=== PATIENT | female | born 1965 | race Caucasian/White ===

== ENCOUNTER → 2021-06-29 08:30 | Outpatient (BNVA) | payer SELFPAY | PROVIDERS: PCP Internal Medicine; Visit Provider Internal Medicine | DX: Z02.79 Encounter for issue of other medical certificate (principal) ==

== ENCOUNTER 2025-01-01 09:46 | Outpatient (AMB) | payer OTHER, SELFPAY ==
[2025-01-01 09:58] VITALS: BP 122/72; PULSE 69; RESP 18; TEMP 36.7; O2SAT 99; BMI 27.4
--- NOTE | 2025-01-01 09:58 | A.OFFPC_ITS ---
Vital Signs 01/01/25 09:58 Height 5 ft 2.25 in Weight 151 lb BMI 27.4 BP 122/72 Blood Pressure Location Lt brachial Position Sitting Respiration 18 Pulse 69 Pulse Source Pulse Oximeter Temp 98.0 F Temp Source Oral Pulse Oximetry (%) 99 Oxygen Delivery Method Room Air Intake Visit Reasons: establish care Intake Note: Patient is a new patient here to establish care. Transferring care from [facility] in [place], [place]. Medical records have been requested and have not been received. Edge Runner Required: No Accompanied by: Self / Same As Patient Allergies No Known Allergies Allergy (Verified 01/01/25 10:20) Medication List - Last Reconciled 01/01/25 by FRANCISCO Wiley atorvastatin 40 mg PO DAILY citalopram 10 mg PO DAILY levothyroxine 75 mcg PO DAILY thiamine HCl (vitamin B1) 100 mg PO DAILY Tobacco use date assessed: 01/01/25 Dental Screening Dental Screen Date: 01/01/25 Did you have a dental visit in the last 12 months?: Yes Did you have a dental problem in the last 6 months where you did not have access to dental care?: No Was dental information given to patient?: Patient has dentist HPI establish care HPI Details Previous PCP: [facility] in [place] Last visit: March 2024 Last PE:same Specialist:no OBGYN: will need a referral-was at [facility]-but not sure if they are in practice anymore Past medical history: depression, anxiety, left hip cortisone shots x2-none in two years, meniscus right tear( PRP injection x1), hypothyroidism Medications: Family HX: father cva, and paternal grandparents cva, sister on dad side cva Problem: Reports that left hip occasionally bothers her. She is struggling with her hip- never had an xray, will order one to further evaluate Reports thinning of hair and would like to see a basketballs and footballs reverser for this. The patient had a MRI of the breast about a month ago hx of benign breast lump and strong family hx of breast cancer Patient reports hearing loss and ringing in the right ear that was evaluated by ENT without notable findings. [facility] Medical History (Updated 01/07/25 @ 21:03 by FRANCISCO Wiley) Hypothyroidism Tear of meniscus of right knee Anxiety Depression CVA (cerebral vascular accident) Surgical History Hx of breast biopsy History of endometrial ablation Family History (Updated 01/07/25 @ 21:10 by FRANCISCO Wiley) Father Breast cancer Diabetes Stroke Mother Glaucoma Dementia Atrial fibrillation Son No problems noted. Daughter No problems noted. 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 1. Little interest or pleasure in doing things: not at all 2. Feeling down, depressed, or hopeless: not at all 3. Trouble falling or staying asleep, or sleeping too much: several days 4. Feeling tired or having little energy: several days 5. Poor appetite or overeating: several days 6. Feeling bad about yourself - or that you are a failure or have let yourself or your family down: not at all 7. Trouble concentrating on things, such as reading the newspaper or watching television: not at all 8. Moving or speaking so slowly that other people could have noticed. Or the opposite - being so fidgety or restless that you have been moving around a lot more than usual: not at all 9. Thoughts that you would be better off or of hurting yourself in some way: not at all Total score: 3 Depression Screening Interpretation: Negative Depression Screening Done: Yes 68493 - PHQ-9 Billing: Yes Source: Developed by Drs. Cosme Engle, Lianne Burciaga, Roland Scott and colleagues, with an educational moo from [employer]. Thrive Questionnaire Date Thrive assessed: 01/01/25 I am a: Patient What is your living situation today?: I have a steady place to live Within the past 12 months, did the food you bought not last and you didn't have the money to get more?: Never true Within the past 12 months, did you worry whether your food would run out before you got money to buy more?: Never true Do you have trouble paying for medicines?: No Do you have trouble getting transportation to medical appointments?: No Do you have trouble paying your heating and electricity bill?: No Do you have trouble taking care of your child, family member or friend?: No Do you have trouble with day-to-day activities such as bathing, preparing meals, shopping, managing finances, etc.?: No Are you currently unemployed and looking for a job?: No Are you interested in more education?: No Please select the resources that you would like help with: None Currently or been in a relationship where the following occur: No concerns reported THRIVE Score: 0 AUDIT C Alcohol Use Questionnaire (AUDIT-C) 1. How often do you have a drink containing alcohol?: 2-4 times a month 2. How many drinks containing alcohol do you have on a typical day when you are drinking?: 1 or 2 3. How often do you have six or more drinks on one occasion?: Never Total Score: 2 Score Reviewed/Action Taken: Yes FRIDA-7 AMB Questionnaire FRIDA-7 Date FRIDA - 7 assessed: 01/01/25 Feeling nervous, anxious, or on edge: 1 = Several days Not being able to stop or control worryin = Several days Worrying too much about different things: 1 = Several days Trouble relaxin = Several days Being so restless that it is hard to sit still: 0 = Not at all Becoming easily annoyed or irritable: 1 = Several days Feeling afraid as if something awful might happen: 0 = Not at all Total FRIDA-7 score (0-4 normal; 5-9 mild; 10-14 moderate; 15-21 severe): 5 Source: Developed by Drs. Cosme Engle, Lianne Burciaga, Roland Scott and colleagues, with an educational moo from [employer] FRIDA-7 Assessment Billing FRIDA-7 Assessment Tool: FRIDA-7 Assessment 69361 Review of Systems Const Denies headache(s) Eyes Denies loss of vision ENT Denies vertigo, Denies dizziness, Denies headache(s) and Denies sore throat Card Denies chest pain, Denies leg edema and Denies lightheadedness Resp Denies cough, Denies hemoptysis and Denies wheezing GI Denies abdominal pain, Denies melena, Denies constipation, Denies diarrhea and Denies vomiting Denies urinary frequency, Denies dysuria and Denies urinary urgency Musc Reports arthralgias (Right hip and right knee), Denies joint swelling, Denies numbness and Denies tingling Neuro Denies Abnormal speech present, Denies behavioral changes, Denies vertigo, Denies dizziness, Denies headache(s), Denies loss of vision, Denies memory loss, Denies numbness and Denies tingling Psych Reports anxiety, Denies behavioral changes, Reports depression, Denies memory loss and Denies panic attacks Spike/Lymph Denies easy bleeding and Denies easy bruising Aller/Immun Denies wheezing Physical exam (Primary Care) Vital Signs: Last Vital Signs Temp 98.0 F 01/01/25 09:58 Pulse 69 01/01/25 09:58 Resp 18 01/01/25 09:58 BP 122/72 01/01/25 09:58 Pulse Ox 99 01/01/25 09:58 Oxygen Delivery Method Room Air 01/01/25 09:58 BMI result Body Mass Index 27.4 Tobacco/Smoking Status: Tobacco use Status Tobacco use date assessed 01/01/25 01/01/25 10:16 Patient Tobacco Use Status Former Tobacco user 01/01/25 10:16 Tobacco use type Cigarette 01/01/25 10:16 e-Cigarette/Vaping Use Never Used 01/01/25 10:16 PHQ-9: PHQ-9 Score PHQ-9: Total score 3 01/01/25 10:45 Depression Screening Interpretation: Negative Thrive Assessment: Date of Thrive Assessment Date Thrive assessed 01/01/25 01/01/25 10:16 Currently or been in a relationship where the following occur: No concerns reported Const General: healthy appearing, no acute distress, alert and awake Nutritional Appearance: well nourished Orientation/consciousness: oriented to person, oriented to place and oriented to time HENMT Ears: TM's normal bilaterally General nose exam: Normal nasal mucous membranes and turbinates present Eyes Conjunctivae: conjunctivae normal Sclerae: sclerae normal Pupils: Equal, round and reactive pupils present Neck Neck: Yes no lymphadenopathy and Yes no JVD Thyroid: Thyroid normal Carotids: no bruits Resp Effort & Inspection: normal respiratory effort and not tachypneic Auscultation: no crackles, no rales, no rhonchi and no wheezes Cardio Rate: regular rate Rhythm: regular rhythm Heart sounds: no murmurs and normal S1 and S2 Bruits: no carotid bruits GI Palpation (GI): Soft to palpation, nontender, no hepatomegaly and no splenomegaly Auscultation: normal bowel sounds Skin General skin exam: no rashes or lesions noted and dry skin Neuro General: oriented to person, oriented to place and oriented to time Cranial nerves: Yes Equal, round and reactive pupils present Speech: No Abnormal speech present Gait exam (Neuro): Normal gait present Motor exam (neuro): no tremor noted Extrem Right upper extremity: full ROM Left upper extremity: full ROM Right lower extremity: full ROM; no edema Left lower extremity: full ROM; no edema Psych Mental Status: mental status grossly normal Speech and movement: Normal speech and movement present Affect: normal affect Attitude: cooperative Thought process: Normal thought process present Coding Level of Care Code New Pt Level 4 (20224) Diagnoses Depression, unspecified depression type F32.A Depression Type: unspecified Anxiety F41.9 Left hip pain M25.552 Old tear of meniscus of right knee, unspecified meniscus, unspecified tear type M23.206 Tear current or old: old Meniscus of knee: unspecified Meniscus tear of knee type: unspecified type Hypothyroidism, unspecified type E03.9 Hypothyroidism type: unspecified Hair thinning L65.9 Additional Codes FRIDA-7 Assessment Billing - FRIDA-7 Assessment Tool: FRIDA-7 Assessment 74416 ([id number]) PHQ-9 - 29886 - PHQ-9 Billing: Yes ([id number]) Time Spent (min) 39 Assessment & Plan Assessment & Plan (1) Depression: Code(s): F32.A - Depression, unspecified Category: Medical Qualifiers: Depression Type: unspecified Qualified Code(s): F32.A - Depression, unspecified Plan: ENCOURAGED CBT Continue citalopram 10 mg daily (2) Anxiety: Code(s): F41.9 - Anxiety disorder, unspecified Category: Medical Plan: Encouraged CBT Continue citalopram 10 mg daily (3) Left hip pain: Code(s): M25.552 - Pain in left hip Category: Medical Plan: Ongoing left hip pain that she has been struggling with, we will order an x-ray to further evaluate (4) Tear of meniscus of right knee: Code(s): S83.206A - Unspecified tear of unspecified meniscus, current injury, right knee, initial encounter Category: Medical Qualifiers: Tear current or old: old Meniscus of knee: unspecified Meniscus tear of knee type: unspecified type Qualified Code(s): M23.206 - Derangement of unspecified meniscus due to old tear or injury, right knee Plan: left hip cortisone shots x2-none in two years, meniscus right tear( PRP injection x1), Ibuprofen otc as needed (5) Hypothyroidism: Code(s): E03.9 - Hypothyroidism, unspecified Category: Medical Qualifiers: Hypothyroidism type: unspecified Qualified Code(s): E03.9 - Hypothyroidism, unspecified Plan: The patient is currently on levothyroxine 75 mcg daily We will recheck labs (6) Hair thinning: Code(s): L65.9 - Nonscarring hair loss, unspecified Category: Medical Plan: Dermatology referral placed Orders: Orders XR hip LT min 2V 01/01/25 M25.552 - Pain in left hip Complete Blood Count Auto Diff 01/01/25 Z00.00 - Encounter for general adult medical examination without abnormal findings Lipid Panel 01/01/25 Z00.00 - Encounter for general adult medical examination without abnormal findings Comprehensive [place]. Panel Fast 01/01/25 Z00.00 - Encounter for general adult medical examination without abnormal findings Free T4 (Free Thyroxine) 01/01/25 Z00.00 - Encounter for general adult medical examination without abnormal findings Glucose Fasting 01/01/25 Z00.00 - Encounter for general adult medical examination without abnormal findings Vitamin D 25-OH Total 01/01/25 Z00.00 - Encounter for general adult medical examination without abnormal findings UA CC w/rflx Micro + Cult 01/01/25 Z00.00 - Encounter for general adult medical examination without abnormal findings TSH reflex Free T4 01/01/25 Z00.00 - Encounter for general adult medical examination without abnormal findings Referrals Dermatology Referral L65.9 - Nonscarring hair loss, unspecified BUSINESS ANALYSIS PROFESSIONAL Referral Z01.419 - Encounter for gynecological examination (general) (routine) without abnormal findings
--- OUTSIDE RECORDS SUMMARY | 2025-01-01 10:47 | XMS_ITS | Clinical Summary ---
Author Organization [address] Address [address] [place] [id number] Phone Care Team Providers Care Wincher Name Role Phone Concepcion Fall MD Primary Care Provider [phone] Allergies No known active allergies Medications levothyroxine (SYNTHROID, LEVOTHROID) 50 mcg tablet Take 1 tablet (50 mcg total) by mouth 1 (one) time each day. 06/18/2019 Active sertraline (ZOLOFT) 50 mg tablet Take 1 tablet (50 mg total) by mouth 1 (one) time each day. 08/18/2021 Active MULTIVITAMIN ORAL 1 po QD Active Active Problems Problem Noted Date Diagnosed Date Other specified health status 09/13/2024 Overview (09/13/2024): h/p panic attacks- none in 7 yrs Abnormal uterine bleeding 10/17/2018 Overview (09/13/2024): Last Assessment & Plan: Reviewed with patient that I would recommend EMB as it has been several years since her last. She agreed. The patient was consented for an endometrial biopsy. She was placed in the lithotomy position and a bimanual exam was performed revealing an enlarged ~ 14-16 week anteverted uterus. A sterile speculum was placed. The cervix was cleansed with betadine. A single-toothed tenaculum was placed on the anterior lip of the cervix. The uterus sounded to 7 cm in length. One pass with a 3 mm pipelle was performed with a scant amount of tissue returning. This tissue was sent to pathology for further evaluation. The tenaculum was removed and the sites appeared hemostatic. The speculum was also removed. The patient tolerated the procedure well. We discussed postprocedure cramping and light bleeding. Advised to avoid anything in the vagina for three days. Advised to call with increasing pain, heavy bleeding, or fever. Uterine leiomyoma 10/17/2018 Overview (09/13/2024): Last Assessment & Plan: I reviewed options for treatment. I explained that if the pressure and intermittent bleeding are not bothersome, no need for intervention as most fibroids are benign. I explained that they will shrink over time with menopause, but slowly. If bothersome enough, I recommended she consider hysterectomy, which would need to be performed as an open procedure, but likely could be accomplished through a Pfannenstiel incision. I reviewed expected hospital stay, recovery, time out of work and general risks of surgery. She will consider this and inform me of her decision when she is ready. Adjustment disorder with anxiety 07/08/2016 Adjustment disorder with depressed mood 06/27/20 16 Intramural leiomyoma of uterus 07/13/2015 Hypothyroidism 09/13/2010 Sun-damaged skin 09/13/2010 Overview (09/13/2024): stypia on biopsy, follows with dermatology, 09/02/10 Encounters Date Type Department Care Team Description 11/19/2024 12:42 PM EST - 11/19/2024 11:59 PM EST Hospital Encounter [facility] MRI [address] [place] [address] Family history of malignant neoplasm of breast Discharge Disposition: Home or Self Care from Last 3 Months Immunizations Name Administration Dates Next Due Influenza Quadravalent, MDCK , 0.5ml, preservative free (Flucelvax) 6mo and older 06/18/2020 Influenza trivalent, with pr eservative (Fluzone; Afluria) 6mo and older 06/10/2016,06/11/2013,06/06/2012,06/28,06/15/2010,06/19/2009,07/04/2008 ,06/28/2007,08/26/2006 Influenza, Unspecified 05/24/2017,06/16/2015 Pneumococcal polysaccharide 23 valent (Pneumovax 23) 2yo and older 03/23/2010 Td, Unspecified 12/18/2003 Tdap Tetanus diptheria acell ular pertussis (Boostrix; Adacel) 7yo and older 06/28/2011 Surgical History Surgery Date Site/Laterality Comments STEREOTACTIC BREAST BIOPSY 2010 PROCEDURE: STEREOTACTIC BREAST BIOPSY; COMMENT: benign BREAST BIOPSY Left PROCEDURE: BX BREAST; PERC NEEDLE CORE W/IMAG GUID ENDOMETRIAL ABLATION 01/08/16 PROCEDURE: RI ENDOMETRIAL ABLTJ THERMAL W/O HYSTEROSCOPIC GUID; COMMENT: Novasure COLONOSCOPY 08/16/2016 PROCEDURE: HISTORICAL COLONOSCOPY; COMMENT: Minimal diverticulosis, no polyps. Medical History Medical History Date Comments Anxiety state, unspecified 03/30/2006 DX:An xiety state, unspecified Sun-damaged skin 09/13/2010 DX:Sun-damaged skin Hypothyroidism 09/13/2010 DX:Hypothyroidis m Family History Medical History Relation Name Comments Melanoma Aunt paternal Other: dm Brother diagnosed at age 61 Breast cancer Father age 55 Diabetes Father age 55 Stroke Father age 55 Stroke Paternal Grandfather Stroke Paternal Grandmother Breast cancer Sister 65 Other Dermatological Disorders Sister 65 Facial.... specifics unknown with non-melanotic cutaneous malignancy suspected because of the patient's description of small surgical scar Colon cancer Neg Hx Ovarian cancer Neg Hx Relation Name Status Comments Aunt Brother diagnosed at age 61 Alive Father age 55 (Age 58) Paternal Grandfather Paternal Grandmother Sister 65 Social History Tobacco Use Types Packs/Day Years Used Date Smoking Tobacco: Former Cigarettes 0.3 10 1 11/10/1982 - 09/25/1993 Smokeless Tobacco: Never Alcohol Use Standard Drinks/Week Comments Yes 0 (1 standard drink = 0.6 oz pur e alcohol) Comments Unknown Sex and Gender Information Value Date Recorded Sex Assigned at Not on file Legal Sex Female 3:40 PM EST Gender Identity Not on file Sexual Orientation Not on file Obstetrics History Para Term AB IAB SAB Ectopic Multiple Livin g Live Births 2 2 2 2 Date Outcome GA Total Labor Labor/2nd/3rd Weight Sex Type Anes PTL Delfina A1 A5 Name Clin Term Term Last Filed Vital Signs Vital Sign Reading Time Taken Comments Blood Pressure - - Pulse - - Temperature - - Respiratory Rate - - Oxygen Saturation - - Inhaled Oxygen Concentration - - Weight 68 kg (150 lb) 11/19/2024 1:13 PM EST Height - - Body Mass Index - - Plan of Treatment Health Maintenance Due Date Last Done Comments Hepatitis B Vaccines (1 of 3 - 19+ 3-dose series) 1984 Depression Screening 09/03/2022 HIV Screening 09/03/2022 Social Influencers of Health Screening 09/03/2022 Zoster Vaccines (2 of 2) 09/15/2024 07/21/2024 Cholesterol Screening (Lipid Panel) 06/11/2025 06/11/2020 Cervical Cancer Screening: HPV 06/09/2026 06/09/2021 Colorectal Cancer Screening: Colonoscopy 08/16/2026 08/16/2016, 08/16/2016 Breast Cancer Screening 09/30/2026 09/30/19, 09/22/2023, 09/15/2022, Additional history exists DTaP,Tdap,and Td Vaccines (4 - Td or Tdap) 07/05/2031 07/05/2021, 06/28/2011, 12/18/2003 RSV Immunization Adult Patients (1 - 1-dose 75+ series) 2040 Hepatitis C Screening Completed 09/20/2013 Influenza Vaccine Completed 06/05/2024, , 06/21/2022, Additional history exists COVID-19 Vaccine Completed 07/07/2024, , 04/06/2022, Additional history exists Pneumococcal Vaccine: 50+ Years Completed 07/21/2024, 03/23/2010 Pneumococcal Vaccine: Pediatrics (0 to 5 Years) and At-Risk Patients (6 to 64 Years) Aged Out 07/21/2024, 03/23/2010 No longer eligibl e based on patient's age to complete this topic HIB Vaccines Aged Out No longer eligi ble based on patient's age to complete this topic HPV Vaccines Aged Out No longer eligi ble based on patient's age to complete this topic Hepatitis A Vaccines Aged Out No long er eligible based on patient's age to complete this topic IPV Vaccines Aged Out No longer eligi ble based on patient's age to complete this topic MMR Vaccines Aged Out No longer eligi ble based on patient's age to complete this topic Meningococcal ACWY Vaccine Aged Out N o longer eligible based on patient's age to complete this topic Meningococcal B Vaccine Aged Out No l onger eligible based on patient's age to complete this topic RSV Immunization Patients Under 20 months Aged Out No longer eligible based on patient's age to complete this topic Varicella Vaccines Aged Out No longer eligible based on patient's age to complete this topic Procedures Procedure Name Priority Date/Time Associated Diagnosis Comments MR BREAST WO AND W CONTRAST BILAT Routine 11/19/2024 2:57 PM EST Family history of malignant neoplasm of breast MG MAMMO DIGITAL SCREENING W NENO BILAT Routine 09/30/2024 8:12 AM EST Encounter for screening mammogram for breast cancer HPV Routine 06/09/2021 LIPID PANEL Routine 06/11/2020 COLONOSCOPY Routine 08/16/2016 HEPATITIS C SCREENING Routine 09/20/2013 from Last 3 Months or Most Recently Relevant to Health Maintenance Results * MR Breast wo and w Contrast bilat (11/19/2024 2:57 PM EST) Anatomical Region Laterality Modality Breast Bilateral Magnetic Resonan ce 11/23/2024 10:5 6 AM EST Impressions 11/23/2024 11:02 AM EST No evidence of malignancy in the breasts. BIRADS 1-negative -------- FINAL REPORT -------- Dictated By: EJ GARCIA Dictated Date: 11/23/2024 10:56 ET Assigned Physician: EJ GARCIA Reviewed and Electronically Signed By: EJ GARCIA Signed Date: 11/23/2024 11:02 ET Workstation ID: [id number] Transcribed By: Self Edit Transcribed Date: 11/23/2024 10:56 ET Narrative 11/23/2024 11:02 AM EST PROCEDURE: Breast MRI INDICATION: High-risk screening TECHNIQUE: Multiplanar, multisequence MRI of the breasts without and with contrast. ??20 mL Dotarem injected intravenously from a 20 mL vial COMPARISON: ??Mammogram 09/30/2024 and MRI 03/16/2022 FINDINGS: Right: There are scattered fibroglandular breast tissues. ??Minimal scattered foci of background parenchymal enhancement. ??No suspicious mass or nonmass enhancement above background. ??No significant cystic change. Left: There are scattered fibroglandular breast tissues. ??Minimal scattered foci of background parenchymal enhancement. ??No suspicious mass or nonmass enhancement above background. ??Susceptibility artifact in the central breast, corresponding to postbiopsy tissue marker. ??No significant cystic changes. Other: No axillary or internal mammary lymphadenopathy. ??Upper abdominal and intrathoracic structures are normal where visualized. ??No suspicious marrow replacing lesions. Procedure Note Ej Garcia MD - 11/23/2024 PROCEDURE: Breast MRI INDICATION: High-risk screening TECHNIQUE: Multiplanar, multisequence MRI of the breasts without and withcontrast. 20 mL Dotarem injected intravenously from a 20 mL vial COMPARISON: Mammogram 09/30/2024 and MRI 03/16/2022 FINDINGS: Right: There are scattered fibroglandular breast tissues. Minimal scattered fociof background parenchymal enhancement. No suspicious mass or nonmassenhancement above background. No significant cystic change. Left: There are scattered fibroglandular breast tissues. Minimal scattered fociof background parenchymal enhancement. No suspicious mass or nonmassenhancement above background. Susceptibility artifact in the centralbreast, corresponding to postbiopsy tissue marker. No significant cysticchanges. Other: No axillary or internal mammary lymphadenopathy. Upper abdominal andintrathoracic structures are normal where visualized. No suspiciousmarrow replacing lesions. IMPRESSION: No evidence of malignancy in the breasts. BIRADS 1-negative -------- FINAL REPORT -------- Dictated By: EJ GARCIA Dictated Date: 11/23/2024 10:56 ET Assigned Physician: EJ GARCIA Reviewed and Electronically Signed By: EJ GARCIA Signed Date: 11/23/2024 11:02 ET Workstation ID: [id number] Transcribed By: Self Edit Transcribed Date: 11/23/2024 10:56 ET Debra GASPAR IMG MRI PROCEDURES Final Result * MG Mammo Digital Screening w Neno bilat (09/30/2024 8:12 AM EST) Anatomical Region Laterality Modality Breast Bilateral Mammography 09/30/2024 12:4 4 PM EST Impressions 09/30/2024 12:47 PM EST Benign. BI-RADS CATEGORY: 2 - BENIGN RECOMMENDATION: Screening bilateral mammogram is recommended in 1 year. Mammo Location: [facility], [address] [place] [address], [id number], . -------- FINAL REPORT -------- Dictated By: Anita Munoz Dictated Date: 09/30/2024 12:44 ET Assigned Physician: Anita Munoz Reviewed and Electronically Signed By: Anita Munoz Signed Date: 09/30/2024 12:47 ET Workstation ID: [id number] Transcribed By: Self Edit Transcribed Date: 09/30/2024 12:44 ET Narrative 09/30/2024 12:47 PM EST CLINICAL: 59 years old, Female, routine annual exam. COMPARISON: Mammograms dating back to 08/28/2020 with most recent of 09/22/2023. ?? TECHNIQUE: Bilateral MLO and CC views were obtained digitally with 3-D mammogram (digital breast tomosynthesis). Computer-aided detection was utilized in evaluation of this exam (CAD). FINDINGS: There is no evidence of suspicious mass or architectural distortion. ??No worrisome calcifications are evident. ??There is a biopsy clip in the upper outer left breast. ??There has been no significant change from prior exam(s). ?? BREAST DENSITY: B - There are scattered areas of fibroglandular density. Procedure Note Anita Munoz MD - 09/30/2024 CLINICAL: 59 years old, Female, routine annual exam. COMPARISON: Mammograms dating back to 08/28/2020 with most recent of09/22/2023. TECHNIQUE: Bilateral MLO and CC views were obtained digitally with 3-Dmammogram (digital breast tomosynthesis). Computer-aided detection wasutilized in evaluation of this exam (CAD). FINDINGS: There is no evidence of suspicious mass or architectural distortion. Noworrisome calcifications are evident. There is a biopsy clip in the upperouter left breast. There has been no significant change from priorexam(s). BREAST DENSITY: B - There are scattered areas of fibroglandular density. IMPRESSION: Benign. BI-RADS CATEGORY: 2 - BENIGN RECOMMENDATION: Screening bilateral mammogram is recommended in 1 year. Mammo Location: [facility], [address] [place] [address], [id number], . -------- FINAL REPORT -------- Dictated By: Anita Munoz Dictated Date: 09/30/2024 12:44 ET Assigned Physician: Anita Munoz Reviewed and Electronically Signed By: Anita Munoz Signed Date: 09/30/2024 12:47 ET Workstation ID: [id number] Transcribed By: Self Edit Transcribed Date: 09/30/2024 12:44 ET Result [facility] Osiris Gutierrez DAIRY CONSULTANT IMG BI PROCEDURES Final Resul t * Cervical Cancer Screening: HPV (06/09/2021) [facility] Cervical Cancer Screening: HPV negative,a bstracted Result [facility] Provider HEALTH MAINTENANCE Final Result * (ABNORMAL) Lipid panel (06/11/2020) [facility] LDL/HDL Ratio 3 0 - 4 Triglycerides 123 0 - 150 mg/dL Cholesterol 218(A) 0 - 200 mg/dL HDL 80 >=40 mg/dL LDL Cholesterol 114(A) 0 - 100 mg/dL Blood Venous blood specimen / Unknown Result [facility] Provider LAB BLOOD ORDERABLES Mayra l Result * Colonoscopy (08/16/2016) [facility] Colonoscopy no interpretation , abstracted Anatomical Region Laterality Modality Other Result [facility] Provider HEALTH MAINTENANCE Final Result * Hepatitis C Screening (09/20/2013) [facility] Hepatitis C Screening ABSTRACTED us Historical Provider HEALTH MAINTENANCE Final Result from Last 3 Months or Most Recently Relevant to Health Maintenance Insurance [facility] Care Teams Wincher Relationship Specialty Start Date End Date Concepcion Fall MD [address] [place] [id number] PCP - General 04/13/10
--- OUTSIDE RECORDS SUMMARY | 2025-01-01 10:47 | XMS_ITS | Clinical Summary ---
Author Organization [facility] Address [address] [place] [address] Care Team Providers Care Tire And Lube Technician Name Role Phone Concepcion Fall MD Primary Care Provider [phone] Allergies No known active allergies Medications Medication Sig Dispensed Refills Start Date End Date Status MULTIVITAMIN OR 1 po QD 0 Active sertraline (Zoloft) 50 MG tablet Take one tablet by mouth daily 90 tablet 1 08/18/2021 Active levothyroxine (SYNTHROID, LEVOTHROID) 50 MCG tablet TAKE 1 TABLET BY MOUTH DAILY 90 tablet 1 2021 Active Active Problems Problem Noted Date Uterine leiomyoma 10/17/2018 Last Assessment & Plan: I reviewed options [...] of her decision when she is ready. Abnormal uterine bleeding 10/17/2018 Last Assessment & Plan: Reviewed with patient [...] with increasing pain, heavy bleeding, or fever. Adjustment disorder with anxiety 016 Adjustment disorder with depressed mood 06/27/2016 Intramural leiomyoma of uterus 5 Sun-damaged skin 09/13/2010 Overview: stypia on biopsy, follows with dermatology, 09/02/10 Hypothyroidism 09/13/2010 At high risk for breast cancer- 29% life time 12/18/2007 Overview: Father at age 58. Genetics consult, BRCA NEGATIVE Screening with mammo and MRI Q 6 months started 2020 h/p panic attacks- none in 7 yrs 006 Immunizations Name Administration Dates Next Due Influenza (> 6 Months) 06/10/2016,2012,06/06/2012,06/28,06/15/2010,06/19/2009,07/04/2008 ,06/28/2007,08/26/2006 Influenza Flu (PT Reported) 05/24/2017, 5 Influenza Vaccine-preservati ve Free-quadrivalent 4 Years 06/18/2020 Pneumoccoccal(Adult) Polysac charide PPSV23 03/23/2010 TETANUS/DIPTHERIA (ADULT) 12/18/2003 Tdap 06/28/2011 Family History Medical History Relation Name Comments Melanoma Aunt paternal dm Brother diagnosed at age 61 CA Breast Father age 55 Cancer of the Breast Father age 55 father at age 58 Diabetes Father age 55 Stroke Father age 55 Stroke Paternal Grandfather Stroke Paternal Grandmother CA Breast Sister 65 Cancer of the Breast Sister 65 Other Dermatoloical Disorders Sister 65 Facial.... specifics unknown with non-melanotic cutaneous malignancy suspected because of the patient's description of small surgical scar CA Colon Negative Hx CA Ovarian Negative Hx Relation Name Status Comments Aunt Brother diagnosed at age 61 Alive Father age 55 (Age 58) Paternal Grandfather Paternal Grandmother Sister 65 Social History Tobacco Use Types Packs/Day Years Used Date Smoking Tobacco: Former Cigarettes 0.3 11 1 11/10/1982 - 09/25/1993 Smokeless Tobacco: Never Comments:quit 10 yrs ago Alcohol Use Standard Drinks/Week Comments Yes 0 (1 standard drink = 0.6 oz pur e alcohol) 1 drink per week Sex Assigned at Date Recorded Not on file Job Start Date Occupation Industry Not on file Not on file Not on file Last Filed Vital Signs Vital Sign Reading Time Taken Comments Blood Pressure 110/60 08/18/2021 8:45 AM EST Pulse 64 08/18/2021 8:45 AM EST Temperature 36.4 ??C (97.6 ??F) 08/18/2021 8:45 AM ES T Respiratory Rate 15 08/18/2021 8:45 AM EST Oxygen Saturation 98% 08/18/2021 8:45 AM EST Inhaled Oxygen Concentration - - Weight 64 kg (141 lb) 08/18/2021 8:45 AM EST Height 160 cm (5' 3 ) 08/18/2021 8:45 AM EST Body Mass Index 24.98 08/18/2021 8:45 AM EST Plan of Treatment Health Maintenance Due Date Last Done Comments Covid-19 Vaccine (#1) 03/10/1966 SHINGLES VACCINE (1 of 2) 2015 BASELINE HEALTH EXAM 40-64 06/26/202006/26, 12/19/2017, 05/04/2017, Additional history exists DTAP/TDAP/TD (2 - Td or Tdap) 06/28/2021 06/28/2011 MAMMOGRAM 09/22/2024 09/22/2023, 08/26, 2021, Additional history exists INFLUENZA (Season Ended) 2025 020, 05/24/2017, 05/24/2017, Additional history exists CHOLESTEROL SCREENING 06/11/2025 06/11/2020 , 06/26/2018, 12/21/2012, Additional history exists CERVICAL CANCER SCREENING 06/09/20262020, 12/04/2015, 05/17/2013, Additional history exists COLON CANCER SCREENING 08/16/2026 08/16/2016 PNEUMOCOCCAL VACCINE FOR HIG H RISK PATIENTS (#1) 2030 03/23/2010 HEPATITIS C SCREENING Completed 09/20/2013 Care Teams Tire And Lube Technician Relationship Specialty Start Date End Date Concepcion Fall MD [address] [place] [address] PCP - General 04/13/10
--- OUTSIDE RECORDS SUMMARY | 2025-01-01 10:47 | XMS_ITS | Encounter Summary ---
Author Organization [facility] Address [address] [place] [address] Care Team Providers Care Geology Associate Name Role Phone Concepcion Fall MD Primary Care Provider [phone] Reason for Visit * Reason Onset Date Comments immunizations 05/03/2017 Encounter Details Date Type Department Care Team Description 05/03/2017 Telephone Adult Medicine [address] [address] Concepcion Fall MD [address] [place] [phone] immunizations Social History Tobacco Use Types Packs/Day Years [...] file Not on file Not on file documented as of this encounter Miscellaneous Notes * Telephone Encounter - Juan Carlos Krishnan M.A. - 05/03/2017 4:24 PM EDT Pt states her employer is requesting MMR titer only. Please order, thank you. * Telephone Encounter - Concepcion Fall MD - 05/03/2017 4:18 PM EDT Could increase helped by current finding what titer patient's work would require, so I can look into that, MMR, varicella, hepatitis B? * Telephone Encounter - Juan Carlos Krishnan M.A. - 05/03/2017 11:11 AM EDT Please order if appropriate, thank you. No imms or titers on file. Pt saw you for PE 06/28/2016. * Telephone Encounter - Sandra Merlos - 05/03/2017 11:04 AM EDT Payor: [facility] / Plan: [employer] $20 DAE 1 / Product Type: HMO [id number] Patient is requesting a list of their previous immunizations NO Does the patient have an immunization form to be completed? NO Is the patient requesting immunizations to be administered? YES If yes, which immunizations are needed? Titiers for work Is the patient traveling to a foreign country: NO If traveling: Which country: Date patient is leaving: documented in this encounter Plan of Treatment Not on file documented as of this encounter Results * RUBELLA ANTIBODY (05/04/2017 10:48 AM EDT) RUBELLA ANTIBODY POSITIVE POSITIVE 05/04/2017 2:11 PM EDT [facility] 05/04/2017 10:4 8 AM EDT 05/04/2017 10:48 AM EDT Concepcion Fall MD LAB Performing Organization Address City/State/[facility] Co de Phone Number [address] * RUBEOLA ANTIBODY IGG (05/04/2017 10:48 AM EDT) MEASLES IGG POSITIVE POSITIVE 05/04/2017 2:11 PM EDT [facility] 05/04/2017 10:4 8 AM EDT 05/04/2017 10:48 AM EDT Concepcion Fall MD LAB Performing Organization Address [facility] de Phone Number [address] * MUMPS ANTIBODY IGG,ERICA (05/04/2017 10:48 AM EDT) MUMPS IGG POSITIVE POSITIVE 05/04/2017 2:11 PM EDT [facility] 05/04/2017 10:4 8 AM EDT 05/04/2017 10:48 AM EDT Concepcion Fall MD LAB Performing Organization Address [facility] Number [address] documented in this encounter Visit Diagnoses Diagnosis Routine general medical examination at a health care facility- Primary documented in this encounter Care Teams Geology Associate Relationship Specialty Start Date End Date Concepcion Fall MD [address] [place] [id number] PCP - General 04/13/10 documented as of this encounter
--- OUTSIDE RECORDS SUMMARY | 2025-01-01 10:47 | XMS_ITS | Encounter Summary ---
Author Organization [facility] Address [address] [place] [address] Care Team Providers Care Vector Control Assistant Name Role Phone Concepcion Fall MD Primary Care Provider [phone] Encounter Details Date Type Department Care Team Description 04/14/2015 Heel Reducer Report Medical Records [address] [place] [id number] Glenn Veras MD Social History Tobacco Use Types Packs/Day Years Used Date Smoking Tobacco: Former Smokeless Tobacco: Never Comments:quit 10 yrs ago Alcohol Use Standard Drinks/Week Comments Yes 0 (1 standard drink = 0.6 oz pur e alcohol) occ Sex Assigned at Date Recorded Not on file Job Start Date Occupation Industry Not on file Not on file Not on file documented as of this encounter Plan of Treatment Not on file documented as of this encounter Visit Diagnoses Not on filedocumented in this encounter Care Teams Vector Control Assistant Relationship Specialty Start Date End Date Concepcion Fall MD [address] [place] [phone] PCP - General 04/13/10 documented as of this encounter
--- OUTSIDE RECORDS SUMMARY | 2025-01-01 10:47 | XMS_ITS | Encounter Summary ---
Author Organization [facility] Address [address] [place] [address] Care Team Providers Care Food And Beverage Analyst Name Role Phone Concepcion Fall MD Primary Care Provider Gena Crespo MD Primary Care Provider Unavailable Encounter Details Date Type Department Care Team Description 03/24/2010 Hospital Medical Records [address] [place] [id number] Bayron Nix MD Social History Tobacco Use Types Packs/Day [...] on filedocumented in this encounter Care Teams Food And Beverage Analyst Relationship Specialty Start Date End Date Concepcion Fall MD [address] [place] [address] PCP - General 04/13/10 Gena Crespo MD PCP - General 02/28/0604/12 documented as of this encounter
--- OUTSIDE RECORDS SUMMARY | 2025-01-01 10:47 | XMS_ITS | Encounter Summary ---
Author Organization [facility] Address [address] [place] [address] Care Team Providers Care Chemical Engineering Teacher Name Role Phone Concepcion Fall MD Primary Care Provider [phone] Reason for Visit * Reason Comments E-prescribe Rx Request Encounter Details Date Type Department Care Team Description 12/29/[address] [facility] [address] [place] [address] Concepcion Fall MD [address] [place] [address] [phone] E-prescribe Rx Request Social History Tobacco Use Types Packs/Day Years [...] encounter Miscellaneous Notes * Telephone Encounter - Margaret Bryson M.A. - 12/29/2021 1:55 PM EDT Refused pharmacy request last refill 09/09/21 #90/1 order expires 03/10/21 after pt's next appt * Telephone Encounter - Angelito James - 12/29/2021 11:37 AM EDT Patient received a call to make an appointment in regards to refill. Patient made an appointment for 02/03/2022 and would like enough medication until she is seen * Telephone Encounter - Linda Merlos - 12/29/2021 11:23 AM EDT Patient would like script to be: E-PRESCRIBED/FAXED TO PHARMACY WHEN WAS THE PATIENT'S LAST APPOINTMENT IN ADULT MEDICINE? 08/18/21 WHEN WAS THE LAST TIME THE PATIENT SAW THEIR PCP? 03/24/21 Does patient have an upcoming appointment? No[facility]ill [facility]. Appt due (THE MEDICATION REQUESTED IS ON THE MED LIST ABOVE) All of the medications requested were on the CURRENT MEDS list Did you check the Pharmacy information above?: YES Patient wants: 90 -day supply Is this a mail order prescription request ? NO If the refill is from a FAXED refill request what is the RX # listed on the fax? N/A Patients current insurance carrier is: Payor: [place] FFS / Plan: [facility] $20/$35 / Product Type: HMO [id number] documented in this encounter Plan of Treatment Not on file documented as of this encounter Visit Diagnoses Not on filedocumented in this encounter Care Teams Chemical Engineering Teacher Relationship Specialty Start Date End Date Concepcion Fall MD [address] [place] [address] PCP - General 04/13/10 documented as of this encounter
--- OUTSIDE RECORDS SUMMARY | 2025-01-01 10:47 | XMS_ITS ---
Author Organization [facility] Address [address] [place] [address] Care Team Providers Care Bilingual Customer Service Name Role Phone Rosa Schmitt Unavailable [phone] CASIMIROLATONIA SALGADO Unavailable [phone] REASON FOR VISIT MRI breast Encounters Encounter Location Date Provider Diagnosis [address] [facility] [address] [place] [address] 11/01/2024 LATONIA DOWLING Family history of east cancer Z80.3 ASSESSMENTS Encounter Date Diagnosis Assessment Notes Treatment Notes Treatment Clinical Notes Section Notes 11/01/2024 Family history of breast cancer (ICD-10 - Z80.3) PLAN OF TREATMENT Pending Test Test Name Order Date MRI Breast w and w/o Contrast bilat 03/2025 Next Appt Details Provider Name:LATONIA JOSEY , 02/24/2025 08:00:00 AM, [address] [facility], [address], [place], [address], Progress Notes * Natalia KANDOB:1965 (59 yo F)Acc No.[id number]:11/01/2024 Patient:??LORETA Natalia :1965?Age:59 Y?Sex:Fe male Address:[address] [place] [address] Subjective: * Chief Complaints: * ?MRI breast * Medical History:?? * Surgical History:?? * Hospitalization/Major Diagno stic Procedure:?? * Medications:?? Objective: Assessment: * Assessment: 1.??Family history of breast cancer - Z80.3?? Plan: * Treatment: * Procedure Codes:?? * true * Date:??
--- OUTSIDE RECORDS SUMMARY | 2025-01-01 10:48 | XMS_ITS | Encounter Summary ---
Author Organization [facility] Address [address] [place] [address] Care Team Providers Care Portrait Artist Name Role Phone Concepcion Fall MD Primary Care Provider [phone] Encounter Details Date Type Department Care Team Description 12/21/2018 Charter Representative Report Medical Records [address] [place] [address] Luis Peña PA-C Social History Tobacco Use Types Packs/Day Years [...] on filedocumented in this encounter Care Teams Portrait Artist Relationship Specialty Start Date End Date Concepcion Fall MD [address] [place] [address] PCP - General 04/13/10 documented as of this encounter
--- OUTSIDE RECORDS SUMMARY | 2025-01-01 10:48 | XMS_ITS | Encounter Summary ---
Author Organization [facility] Address [address] [place] [address] Care Team Providers Care Validation Specialist Name Role Phone Concepcion Fall MD Primary Care Provider [phone] Reason for Visit * Reason Comments E-prescribe Rx Request Encounter Details Date Type Department Care Team Description 05/13/2020 Refill Adult Medicine [address] [address] Helen Baird PA-C E-prescribe Rx Request Social History Tobacco Use [...] encounter Miscellaneous Notes * Telephone Encounter - Lisa Diaz L.P.N. - 05/13/2020 10:57 AM EDT Lab Results Component Value Date TSH 3.61 06/17/2019 * Telephone Encounter - Rocío Ac - 05/13/2020 10:38 AM EDT Patient would like script to be: E-PRESCRIBED/FAXED TO PHARMACY WHEN WAS THE PATIENT'S LAST APPOINTMENT IN ADULT MEDICINE? 12/16/2019 WHEN WAS THE LAST TIME THE PATIENT SAW THEIR PCP? 01/15/19 Does patient have an upcoming appointment? Yes 06/18/2020 (THE MEDICATION REQUESTED IS ON THE MED LIST ABOVE) All of the medications requested were on the CURRENT MEDS list Did you check the Pharmacy information above?: YES Patient wants: 30 -day supply Is this a mail order prescription request ? NO If the refill is from a FAXED refill request what is the RX # listed on the fax? N/A Patients current insurance carrier is: Payor: [employer] [facility] Petsy / Plan: [facility] F 1+/$20 / ProductType: HMO [id number] documented in this encounter Plan of Treatment Not on file documented as of this encounter Visit Diagnoses Not on filedocumented in this encounter Care Teams Validation Specialist Relationship Specialty Start Date End Date Concepcion Fall MD [address] [place] [address] PCP - General 04/13/10 documented as of this encounter
--- OUTSIDE RECORDS SUMMARY | 2025-01-01 10:48 | XMS_ITS | Encounter Summary ---
Author Organization [facility] Address [address] [place] [address] Care Team Providers Care Glass Cutter Helper Name Role Phone Concepcion Fall MD Primary Care Provider [phone] Reason for Visit * Reason Comments E-prescribe Rx Request Encounter Details Date Type Department Care Team Description 10/12/2018 Refill Adult Medicine [facility] [address] [place] [address] Concepcion Fall MD [address] [place] [address] [phone] E-prescribe Rx Request Social History Tobacco Use [...] Telephone Encounter - Margaret Bryson M.A. - 10/13/2018 2:25 PM EST last ov with pcp 07/03/18 Lab Results Component Value Date TSH 2.52 12/13/2017 * Telephone Encounter - Linda Merlos - 10/12/2018 4:29 PM EST Patient would like script to be: E-PRESCRIBED/FAXED TO PHARMACY WHEN WAS THE PATIENT'S LAST APPOINTMENT IN ADULT MEDICINE? 07/03/18 WHEN WAS THE LAST TIME THE PATIENT SAW THEIR PCP? Same as above Does patient have an upcoming appointment? Yes 01/01/19 (THE MEDICATION REQUESTED IS ON THE MED LIST ABOVE) All of the medications requested were on the CURRENT MEDS list Did you check the Pharmacy information above?: yes Patient wants: 90 -day supply Is this a mail order prescription request ? NO If the refill is from a FAXED refill request what is the RX # listed on the fax? N/A Patients current insurance carrier is: Payor: [employer] / Plan: HMO $20 [address] / Product Type: HMO [id number] documented in this encounter Plan of Treatment Not on file documented as of this encounter Visit Diagnoses Not on filedocumented in this encounter Care Teams Glass Cutter Helper Relationship Specialty Start Date End Date Concepcion Fall MD [address] [place] [address] PCP - General 04/13/10 documented as of this encounter
--- OUTSIDE RECORDS SUMMARY | 2025-01-01 10:48 | XMS_ITS | Encounter Summary ---
Author Organization [facility] Address [address] [place] [address] Care Team Providers Care Emergency Management Program Specialist Name Role Phone Concepcion Fall MD Primary Care Provider [phone] Encounter Details Date Type Department Care Team Description 08/07/2019 Academic Associate Report Medical Records [address] [place] [address] Armani Diego Social History Tobacco Use Types Packs/Day Years [...] on filedocumented in this encounter Care Teams Emergency Management Program Specialist Relationship Specialty Start Date End Date Concepcion Fall MD [address] [place] [address] PCP - General 04/13/10 documented as of this encounter
--- OUTSIDE RECORDS SUMMARY | 2025-01-01 10:48 | XMS_ITS | Encounter Summary ---
Author Organization [facility] Address [address] [place] [address] Care Team Providers Care Director Data Analytics Name Role Phone Concepcion Fall MD Primary Care Provider [phone] Encounter Details Date Type Department Care Team Description 07/29/2019 Orders Only Medical Records [address] [place] [address] Abstract, Provider Social History Tobacco Use Types Packs/Day Years [...] on file documented as of this encounter Procedures Procedure Name Priority Date/Time Associated Diagnosis Comments OUTSIDE MRI/MRA Routine 07/26/2019 documented in this encounter Results * OUTSIDE MRI/MRA (07/26/2019) Veronika Frey PA-C RADIOLOGY documented in this encounter Visit Diagnoses Not on filedocumented in this encounter Care Teams Director Data Analytics Relationship Specialty Start Date End Date Concepcion Fall MD [address] [place] [address] PCP - General 04/13/10 documented as of this encounter
--- OUTSIDE RECORDS SUMMARY | 2025-01-01 10:48 | XMS_ITS ---
Author Organization [facility] Address [address] [place] [address] Care Team Providers Care Rounding Machine Operator Name Role Phone Rosa Schmitt Unavailable [phone] LATONIA DOWLING Unavailable [phone] REASON FOR VISIT MRI breasts results Encounters Encounter Location Date Provider Diagnosis [address] [facility] [address] [place] [address] 11/25/2024 LATONIA DOWLING PLAN OF TREATMENT Next Appt Details Provider Name:LATONIA DOWLING , 02/24/2025 08:00:00 AM, [address], [address], [place], [address], Progress Notes * Natalia KANDOB:1965 (59 yo F)Acc No.[id number]:11/25/2024 Patient:??Natalia KAN :1965?Age:59 Y?Sex:Fe male Address:[address] [place] [address] * true * Date:??
--- OUTSIDE RECORDS SUMMARY | 2025-01-01 10:48 | XMS_ITS | Encounter Summary ---
Author Organization [facility] Address [address] [place] [address] Care Team Providers Care Inspector Packer Name Role Phone Concepcion Fall MD Primary Care Provider [phone] Reason for Visit * Reason Onset Date Comments Appointment-Internal Referral 06/08/2021 Encounter Details Date Type Department Care Team Description 06/08/2021 Telephone OBGYN - [place] [address] [place] [address] Rosa Duron MD [address] [place] [address] [phone] Appointment-Internal Referral Social History Tobacco Use Types Packs/Day Years [...] file Not on file Not on file COVID-19 Exposure Response Date Recorded In the last month, have you been in contact with someone who was confirmed or suspected to have Coronavirus / COVID-19? No / Unsure 06/09/2021 3:26 PM EDT documented as of this encounter Miscellaneous Notes * Telephone Encounter - Debra Montes - 06/09/2021 2:50 PM EDT Referral linked to appointment. * Telephone Encounter - Debra Montes - 06/09/2021 12:44 PM EDT Emdeon down. Will process once it comes back up. * Telephone Encounter - Audra Keane - 06/08/2021 10:24 AM EDT Request for a referral to a Sharmin Specialist for a patient with a Sharmin PCP. If patient does NOT have a Sharmin PCP they must obtain a referral from their PCP before being seen-do not submit request to Referrals department-contact patient. Specialty patient is being referred to: tierce filler Name of Specialist patient is seeing: Rosa Duron Reason/diagnosis for visit: annual exam Date of appoinment: 06/09/21 If retro, date referral needs to start: Concepcion Fall Payor: [employer] [facility] Yext / Plan: [facility] F 1+/$20 / Product Type: HMO [id number] documented in this encounter Plan of Treatment Not on file documented as of this encounter Visit Diagnoses Not on filedocumented in this encounter Care Teams Inspector Packer Relationship Specialty Start Date End Date Concepcion Fall MD [address] [place] [address] PCP - General 04/13/10 documented as of this encounter
--- OUTSIDE RECORDS SUMMARY | 2025-01-01 10:48 | XMS_ITS | Encounter Summary ---
Author Organization [facility] Address [address] [place] [address] Care Team Providers Care Manager Aviation Name Role Phone Concepcion Fall MD Primary Care Provider Encounter Details Date Type Department Care Team Description 08/28/2015 Release of Information Medical Records [address] [place] [address] Abstract, Provider Social History Tobacco Use Types [...] on filedocumented in this encounter Care Teams Manager Aviation Relationship Specialty Start Date End Date Concepcion Fall MD [address] [place] [address] PCP - General 04/13/10 documented as of this encounter
--- OUTSIDE RECORDS SUMMARY | 2025-01-01 10:48 | XMS_ITS | Patient Health Record ---
Author Organization [facility] Address [address] [place] [address] Care Team Providers Care Glassware Maker Name Role Phone Rosa Schmitt Unavailable [phone] LATONIA DOWLING Unavailable [phone] ALLERGIES No Known Allergies RESULTS Component Value Reference Range Notes MR BREAST WO AND W CONTRAST BILAT Reviewed date:11/27/2024 01:13:25 PM Interpretation: Performing Lab: Notes/Report: Note See Note [facility], a member of [employer] Patient Name: TRISH KAN Date of : 1965 Reason for Exam: malignant neoplasm of breast Exam Date: 11/19/2024 [id number] EST Report Status: Final Ordering Provider: LATONIA DOWLING PCP: SOFIE MCGRATH PROCEDURE: Breast MRI INDICATION: High-ris k screening TECHNIQUE: Multiplan ar, multisequence MRI of the breasts without and with contrast. 20 mL Dotarem injected intravenously from a 20 mL vial COMPARISON: Mammogra m 09/30/2024 and MRI 03/16/2022 FINDINGS: Right: There are scattered fibroglandular breast tissues. Minimal scattered foci of background parenchymal enhancement. No suspicious mass or nonmass enhancement above background. No significant cystic change. Left: There are scattered fibroglandular breast tissues. Minimal scattered foci of background parenchymal enhancement. No suspicious mass or nonmass enhancement above background. Susceptibility artifact in the central breast, corresponding to postbiopsy tissue marker. No significant cystic changes. Other: No axillary or inter nal mammary lymphadenopathy. Upper abdominal and intrathoracic structures are normal where visualized. No suspicious marrow replacing lesions. IMPRESSION: No evidence of malig otis in the breasts. BIRADS 1-negative -------- FINAL REPOR T -------- Dictated By: EJ GARCIA Dictated Date: 11/23 10:56 ET Assigned Physician: EJ GARCIA Reviewed and Electronically Signed By: EJ GARCIA Signed Date: 025 11:02 ET Workstation ID: [id number] Transcribed By: Self Edit Transcribed Date: 11/23/2024 10:56 ET REASON FOR REFERRAL Reason Cervical cancer scre ening Diagnosis 1 Pap smear for cervic al cancer screening (Z12.4) Referral Organization [place] [address] Referring Provider First Name LATONIA Referring Provider Last Name JOSEY Referring Provider Speciality Internal M edicine Referred Provider Specialty OB - Gynecol ogy Clinical Notes Roxana Orourke 2024 10:19:56 AM >Referral printed and mailed to pt home. TY. Referral Priority Routine MEDICATIONS Medication SIG (Take, Route, Frequency, Duration) Notes Start Date End Date Status B-1 100 MG TAKE 1 TABLET BY MARIA EUGENIA TH EVERY DAY Oral for 90 Days Active Atorvastatin Calcium 40 MG TAKE 1 TABLET BY MOUTH EVERY DAY Oral for 90 Days Active Citalopram Hydrobromide 10 MG TAKE 1 TABLET BY MOUTH EVERY DAY Oral for 90 Days Active Levothyroxine Sodium 75 MCG TAKE 1 TABLE T BY MOUTH EVERY DAY IN THE MORNING ON AN EMPTY STOMACH Oral for 90 Days Active PROBLEMS Problem Type ICD Code Onset Dates Problem Status W/U Status Risk SNOMED Code Notes Problem Mixed hyperlipidemia (E78.2) Active confirmed 223606807 Problem Acquired hypothyroidism (E03.9) Active confirmed 944325009 Problem Depression with anxiety (F41.8) Active confirmed 638293301 VITAL SIGNS Heart Rate 86 /min 10/31/2024 Blood pressure diastolic 78 mm Hg 10/31/2024 Oximetry 97 % 10/31/2024 Height 62 in 10/31/2024 Blood pressure systolic 122 mm Hg 10/31/2024 Weight 148 lbs 10/31/2024 BMI 27.07 kg/m2 10/31/2024 Encounters Encounter Location Date Provider Diagnosis [place] [address] [address] 07/17/2024 LATONIA DOWLING [place] [address] [address] 10/31/2024 LATONIA DOWLING Mixed hyperlipidemia E78.2 ; Acquired hypothyroidism E03.9 ; Depression with anxiety F41.8 and Family history of breast cancer Z80.3 [facility] [address] [place] [address] 10/31/2024 LATONIA DOWLING [address] [place] [address] 11/01/2024 LATONIA BIRNAOMI Family history of br east cancer Z80.[address] [facility] [address] [facility] [address] [place] [address] 11/13/2024 LATONIA DOWLING [address] [facility] [address] [place] [address] 11/25/2024 LATONIAANALY KIRKPATRICKNAOMI ASSESSMENTS Encounter Date Diagnosis Assessment Notes Treatment Notes Treatment Clinical Notes Section Notes 10/31/2024 Mixed hyperlipidemia (ICD-10 - E78.2) Trish is a 59-year-old female who presents to the office today for new patient evaluation. Patient is welcomed to the practice. They are coming from [facility]. Last complete physical exam with labs February 2024. Medications, medical history, allergies, surgeries, hospitalizations, family history, and social history were reviewed. Problem list updated. Cardiopulmonary and abdominal exam unremarkable. Patient will follow-up in office. All patient questions answered at this time. # Hypothyroidism: Thyroid labs obtained in February 2024 with previous PCP and include TSH 2.02, T 47.3. T3 uptake 35% within normal limits. Continue levothyroxine 75 mcg 1 tablet daily in the morning on empty stomach and before other medications. Will continue to monitor. # Hyperlipidemia: Lipid panel obtained in February 2024 with triglycerides 72, total cholesterol 170, HDL 70, LDL 84, and cholesterol HDLC ratio 2.4. Lipoprotein a within normal limits at 19. Homocystine 8.0 within normal limits. Discussed importance of diet and lifestyle for maintaining healthy levels of cholesterol and preventing other comorbidities. Continue atorvastatin calcium 40 mg once daily. Discussed proper use of the medication and potential side effect profile including but not limited to myalgia and fatigue. Will continue to monitor. # Anxiety/depression: Stable mood in office. Continue citalopram 10 mg once daily. PHQ-9 score of 4 with CPE performed in February. Will continue to monitor. # Preventative medicine: Significant family history of breast cancer in patient's sister and her father. Performs annual mammograms as well as every 6-month bilateral breast MRI which will be ordered. All questions have been answered to patient's satisfaction. Patient verbalized understanding of diagnosis and treatments explained. Advised to call sooner prior to next visit it any questions/concerns arise. Case discussed with collaborating physician Oren Abdalla who reviewed the assessment and plan. Chart, medications, labs, vital signs reviewed. Dictation was accomplished with the use of [employer] voice recognition software, which is prone to medical misidentifications and grammatical errors. This are unintentional and the practitioner does try to identify and correct these, but some could still be present. Please do not hesitate to contact practitioner for clarification. 10/31/2024 Acquired hypothyroidism (ICD-10 - E03.9) Trish is a 59-year-old female who presents to the office today for new patient evaluation. Patient is welcomed to the practice. They are coming from [facility]. Last complete physical exam with labs February 2024. Medications, medical history, allergies, surgeries, hospitalizations, family history, and social history were reviewed. Problem list updated. Cardiopulmonary and abdominal exam unremarkable. Patient will follow-up in office. All patient questions answered at this time. # Hypothyroidism: Thyroid labs obtained in February 2024 with previous PCP and include TSH 2.02, T 47.3. T3 uptake 35% within normal limits. Continue levothyroxine 75 mcg 1 tablet daily in the morning on empty stomach and before other medications. Will continue to monitor. # Hyperlipidemia: Lipid panel obtained in February 2024 with triglycerides 72, total cholesterol 170, HDL 70, LDL 84, and cholesterol HDLC ratio 2.4. Lipoprotein a within normal limits at 19. Homocystine 8.0 within normal limits. Discussed importance of diet and lifestyle for maintaining healthy levels of cholesterol and preventing other comorbidities. Continue atorvastatin calcium 40 mg once daily. Discussed proper use of the medication and potential side effect profile including but not limited to myalgia and fatigue. Will continue to monitor. # Anxiety/depression: Stable mood in office. Continue citalopram 10 mg once daily. PHQ-9 score of 4 with CPE performed in February. Will continue to monitor. # Preventative medicine: Significant family history of breast cancer in patient's sister and her father. Performs annual mammograms as well as every 6-month bilateral breast MRI which will be ordered. All questions have been answered to patient's satisfaction. Patient verbalized understanding of diagnosis and treatments explained. Advised to call sooner prior to next visit it any questions/concerns arise. Case discussed with collaborating physician Oren Abdalla who reviewed the assessment and plan. Chart, medications, labs, vital signs reviewed. Dictation was accomplished with the use of [employer] voice recognition software, which is prone to medical misidentifications and grammatical errors. This are unintentional and the practitioner does try to identify and correct these, but some could still be present. Please do not hesitate to contact practitioner for clarification. 11/01/2024 Family history of breast cancer (ICD-10 - Z80.3) 10/31/2024 Depression with anxiety (ICD-10 - F41.8) Trish is a 59-year-old female who presents to the office today for new patient evaluation. Patient is welcomed to the practice. They are coming from [facility]. Last complete physical exam with labs February 2024. Medications, medical history, allergies, surgeries, hospitalizations, family history, and social history were reviewed. Problem list updated. Cardiopulmonary and abdominal exam unremarkable. Patient will follow-up in office. All patient questions answered at this time. # Hypothyroidism: Thyroid labs obtained in February 2024 with previous PCP and include TSH 2.02, T 47.3. T3 uptake 35% within normal limits. Continue levothyroxine 75 mcg 1 tablet daily in the morning on empty stomach and before other medications. Will continue to monitor. # Hyperlipidemia: Lipid panel obtained in February 2024 with triglycerides 72, total cholesterol 170, HDL 70, LDL 84, and cholesterol HDLC ratio 2.4. Lipoprotein a within normal limits at 19. Homocystine 8.0 within normal limits. Discussed importance of diet and lifestyle for maintaining healthy levels of cholesterol and preventing other comorbidities. Continue atorvastatin calcium 40 mg once daily. Discussed proper use of the medication and potential side effect profile including but not limited to myalgia and fatigue. Will continue to monitor. # Anxiety/depression: Stable mood in office. Continue citalopram 10 mg once daily. PHQ-9 score of 4 with CPE performed in February. Will continue to monitor. # Preventative medicine: Significant family history of breast cancer in patient's sister and her father. Performs annual mammograms as well as every 6-month bilateral breast MRI which will be ordered. All questions have been answered to patient's satisfaction. Patient verbalized understanding of diagnosis and treatments explained. Advised to call sooner prior to next visit it any questions/concerns arise. Case discussed with collaborating physician Oren Abdalla who reviewed the assessment and plan. Chart, medications, labs, vital signs reviewed. Dictation was accomplished with the use of [employer] voice recognition software, which is prone to medical misidentifications and grammatical errors. This are unintentional and the practitioner does try to identify and correct these, but some could still be present. Please do not hesitate to contact practitioner for clarification. 10/31/2024 Family history of breast cancer (ICD-10 - Z80.3) Trish is a 59-year-old female who presents to the office today for new patient evaluation. Patient is welcomed to the practice. They are coming from [facility]. Last complete physical exam with labs February 2024. Medications, medical history, allergies, surgeries, hospitalizations, family history, and social history were reviewed. Problem list updated. Cardiopulmonary and abdominal exam unremarkable. Patient will follow-up in office. All patient questions answered at this time. # Hypothyroidism: Thyroid labs obtained in February 2024 with previous PCP and include TSH 2.02, T 47.3. T3 uptake 35% within normal limits. Continue levothyroxine 75 mcg 1 tablet daily in the morning on empty stomach and before other medications. Will continue to monitor. # Hyperlipidemia: Lipid panel obtained in February 2024 with triglycerides 72, total cholesterol 170, HDL 70, LDL 84, and cholesterol HDLC ratio 2.4. Lipoprotein a within normal limits at 19. Homocystine 8.0 within normal limits. Discussed importance of diet and lifestyle for maintaining healthy levels of cholesterol and preventing other comorbidities. Continue atorvastatin calcium 40 mg once daily. Discussed proper use of the medication and potential side effect profile including but not limited to myalgia and fatigue. Will continue to monitor. # Anxiety/depression: Stable mood in office. Continue citalopram 10 mg once daily. PHQ-9 score of 4 with CPE performed in February. Will continue to monitor. # Preventative medicine: Significant family history of breast cancer in patient's sister and her father. Performs annual mammograms as well as every 6-month bilateral breast MRI which will be ordered. All questions have been answered to patient's satisfaction. Patient verbalized understanding of diagnosis and treatments explained. Advised to call sooner prior to next visit it any questions/concerns arise. Case discussed with collaborating physician Oren Abdalla who reviewed the assessment and plan. Chart, medications, labs, vital signs reviewed. Dictation was accomplished with the use of [employer] voice recognition software, which is prone to medical misidentifications and grammatical errors. This are unintentional and the practitioner does try to identify and correct these, but some could still be present. Please do not hesitate to contact practitioner for clarification. PLAN OF TREATMENT Pending Test Test Name Order Date MRI Breast w and w/o Contrast bilat 03/2025 MRI Breast w/o Contrast bilat 10/31/2024 Next Appt Details Provider Name:LATONIA DOWLING , 02/24/2025 08:00:00 AM, [address] [facility], [address], [place], [address], Insurance Providers Payer Name Payer Address Payer Phone Subscriber Number Group Number Insured Name Patient Relationship to Insured Coverage Start Date Coverage End Date [facility] [address] [place] [address] [id number] Trish Kan Self - patient is the insured 4 MEDICAL (GENERAL) HISTORY Medical History History ICD Code thyroid disease anxiety depression hearing loss
--- OUTSIDE RECORDS SUMMARY | 2025-01-01 10:48 | XMS_ITS ---
Author Organization [facility] Address [address] [place] [address] Care Team Providers Care Roof Technician Name Role Phone Rosa Schmitt Unavailable [phone] LATONIA DOWLING Unavailable [phone] REASON FOR VISIT peer to peer MRI FYI Encounters Encounter Location Date Provider Diagnosis [facility] [address] [facility] [address] [place] [address] 11/13/2024 LATONIA DOWLING PLAN OF TREATMENT Next Appt Details Provider Name:LATONIA DOWLING , 02/24/2025 08:00:00 AM, [address] [facility], [address], [place], [address], Progress Notes * Natalia KANDOB:1965 (59 yo F)Acc No.[id number]:11/13/2024 Patient:??LORETA Natalia :1965?Age:59 Y?Sex:Fe male Address:[address] [place] [address] * true * Date:??
--- OUTSIDE RECORDS SUMMARY | 2025-01-01 10:48 | XMS_ITS | Clinical Summary ---
Author Organization [facility] Address [address] [place] [address] Care Team Providers Care Harm Reduction Worker Name Role Phone Concepcion Fall MD Primary Care Provider [phone] Allergies No known active allergies Medications Medication Sig Dispensed Refills Start Date End Date Status levothyroxine (SYNTHROID, LEVOXYL) tablet 50 mcg Take 50 mcg by mouth. 0 06/18/2019 Active Active Problems Problem Noted Date Diagnosed Date Abnormal uterine bleeding 10/17/2018 Overview: Last Assessment & Plan: Reviewed with patient [...] heavy bleeding, or fever. Uterine leiomyoma 10/17/2018 Overview: Last Assessment & Plan: I reviewed options [...] when she is ready. Adjustment disorder with depressed mood 06/27/20 16 Hypothyroidism 09/13/2010 Sun-damaged skin 09/13/2010 Overview: Overview: stypia on biopsy, follows with dermatology, 09/02/10 Family history of breast cancer in first degree relative 12/18/2007 Overview: Overview: Father. Genetics consult, BRCA NEGATIVE Anxiety state 03/30/2006 Family History Medical History Relation Name Comments Hyperlipidemia Brother Cancer Father Diabetes Father Heart disease Mother Relation Name Status Comments Brother Father Mother Social History Tobacco Use Types Packs/Day Years Used Date Smoking Tobacco: Former Cigarettes Q uit: 1993 Smokeless Tobacco: Never Alcohol Use Standard Drinks/Week Comments Yes 2 (1 standard drink = 0.6 oz pur e alcohol) Sex and Gender Information Value Date Recorded Sex Assigned at Not on file Gender Identity Not on file Sexual Orientation Not on file Last Filed Vital Signs Vital Sign Reading Time Taken Comments Blood Pressure - - Pulse - - Temperature - - Respiratory Rate - - Oxygen Saturation - - Inhaled Oxygen Concentration - - Weight 65.8 kg (145 lb) 08/26/2019 9:25 AM EST Height 160 cm (5' 3 ) 08/26/2019 9:25 AM EST Body Mass Index 25.69 08/26/2019 9:25 AM EST Plan of Treatment Health Maintenance Due Date Last Done Comments Hepatitis B Vaccines (1 of 3 - 3-dose series) 1965 Hepatitis C Screening 1965 COVID-19 Vaccine (#1) 03/10/1966 Depression Screening 1977 BMI Counseling 1983 Preventative Health Evaluation 1983 Cervical Cancer Screening (Pap Smear) 1986 Colon Cancer Screening (Colonoscopy) 2010 Breast Cancer Screening (Mammogram) 2015 Shingrix-Zoster Vaccine (1 of 2) 2015 DTap / Tdap / Td (2 - Td or Tdap) 06/28/2021 06/28/2011 Influenza Vaccine (#1) 2024 6, 06/11/2013, 06/06/2012, Additional history exists Pneumococcal Vaccine Aged Out 03/23/2010 No long er eligible based on patient's age to complete this topic RSV Ped < 20 months Aged Out No longe r eligible based on patient's age to complete this topic Care Teams Harm Reduction Worker Relationship Specialty Start Date End Date Concepcion Fall MD PCP - General Internal Medicine 08/26/19
== END 2025-01-01 10:48 | disposition home or self-care (01) ==
LOC: HO.HMCH 09:50
DX: F32.A Depression, unspecified (principal); F41.9 Anxiety disorder, unspecified; M25.552 Pain in left hip; M23.206 Derangement of unspecified meniscus due to old tear or injury, right knee; E03.9 Hypothyroidism, unspecified; L65.9 Nonscarring hair loss, unspecified

== ENCOUNTER → 2025-01-01 09:46 | Outpatient (BNVA) | payer OTHER, SELFPAY | DX: F32.A Depression, unspecified (principal); F41.9 Anxiety disorder, unspecified; M25.552 Pain in left hip; M23.206 Derangement of unspecified meniscus due to old tear or injury, right knee; E03.9 Hypothyroidism, unspecified; L65.9 Nonscarring hair loss, unspecified; Z79.899 Other long term (current) drug therapy | CPT/HCPCS: 96127 ==

== ENCOUNTER 2025-01-14 11:48 | Outpatient (REF) | payer OTHER, SELFPAY ==
--- NOTE | ~2025-01-14 | XR_ITS ---
EXAMINATION: XR HIP, LEFT CLINICAL INFORMATION: M25.552 - Pain in left hip COMPARISON: None available. TECHNIQUE: Two views of the left hip. FINDINGS: No fracture. Alignment is anatomic. Hip joint space is maintained. Normal acetabular coverage. Soft tissues are unremarkable. XR/XR hip LT min 2V IMPRESSION: Normal left hip. Electronically signed by: Alex Simpson MD 01/15/2025 12:15 PM EDT
--- OUTSIDE RECORDS SUMMARY | 2025-01-14 14:17 | XMS_ITS | Clinical Summary ---
Author Organization [facility] Address [address] [place] [address] Care Team Providers Care Ring Facer Name Role Phone Concepcion Fall MD Primary Care Provider [phone] Allergies No known active allergies Medications Medication [...] age to complete this topic Care Teams Ring Facer Relationship Specialty Start Date End Date Concepcion Fall MD PCP - General Internal Medicine 08/26/19
--- OUTSIDE RECORDS SUMMARY | 2025-01-14 14:17 | XMS_ITS | Encounter Summary ---
Author Organization [facility] Address [address] [place] [address] Care Team Providers Care Cathead Worker Name Role Phone Concepcion Fall MD Primary Care Provider [phone] Reason for Visit * Reason Onset Date Comments immunizations 05/03/2017 Encounter Details Date Type Department Care Team Description 05/03/2017 Telephone Adult Medicine [address] [address] Concepcion Fall MD [address] [place] [address] [phone] immunizations Social History Tobacco Use Types Packs/Day [...] 05/03/2017 11:04 AM EDT Payor: [facility] / Plan: [employer] $20 DAE 1 / Product Type: HMO [id number] Patient is requesting a list of their [...] ANTIBODY POSITIVE POSITIVE 05/04/2017 2:11 PM EDT [facility] 05/04/2017 10:4 8 AM EDT 05/04/2017 10:48 AM EDT Concepcion Fall MD LAB Performing Organization Address City/State/[facility] Co de Phone Number [address] * [place] ANTIBODY IGG (05/04/2017 10:48 AM EDT) MEASLES IGG POSITIVE POSITIVE 05/04/2017 2:11 PM EDT [facility] 05/04/2017 10:4 8 AM EDT 05/04/2017 10:48 AM EDT Concepcion Fall MD LAB Performing Organization Address [facility] de Phone Number [address] * [facility] ANTIBODY IGG,ERICA (05/04/2017 10:48 AM EDT) MUMPS IGG POSITIVE POSITIVE 05/04/2017 2:11 PM EDT [facility] 05/04/2017 10:4 8 AM EDT 05/04/2017 10:48 AM EDT Concepcion Fall MD LAB Performing Organization Address [facility] Number [address] documented in this encounter Visit Diagnoses Diagnosis Routine general medical examination at a health care facility- Primary documented in this encounter Care Teams Cathead Worker Relationship Specialty Start Date End Date Concepcion Fall MD [address] [place] [address] PCP - General 04/13/10 documented as of this encounter
--- OUTSIDE RECORDS SUMMARY | 2025-01-14 14:17 | XMS_ITS | Encounter Summary ---
Author Organization [facility] Address [address] [place] [address] Care Team Providers Care Asic Verification Engineer Name Role Phone Concepcion Fall MD Primary Care Provider [phone] Encounter Details Date Type Department Care Team Description 04/15/2015 Release of Information Medical Records [address] [place] [id number] Abstract, Provider Social History Tobacco Use Types [...] on filedocumented in this encounter Care Teams Asic Verification Engineer Relationship Specialty Start Date End Date Concepcion Fall MD [address] [place] [address] PCP - General 04/13/10 documented as of this encounter
--- OUTSIDE RECORDS SUMMARY | 2025-01-14 14:17 | XMS_ITS ---
Author Organization [facility] Address [address] [place] [address] Care Team Providers Care Chief Lock Tender Operator Name Role Phone Rosa Schmitt Unavailable [phone] CASIMIROLATONIA SALGADO Unavailable [phone] REASON FOR VISIT MRI breast Encounters Encounter Location Date Provider Diagnosis [address] [facility] [address] [place] [address] 11/01/2024 LATONIA DOWLING Family history of east cancer Z80.3 ASSESSMENTS Encounter Date Diagnosis Assessment Notes Treatment Notes Treatment Clinical Notes Section Notes 11/01/2024 Family history of breast cancer (ICD-10 - Z80.3) PLAN OF TREATMENT Pending Test Test Name Order Date MRI Breast w and w/o Contrast bilat 03/2025 Next Appt Details Provider Name:LATONIA JOSEY , 02/24/2025 08:00:00 AM, [address] [facility], [address], [place], [address], Progress Notes * Natalia KANDOB:1965 (59 yo F)Acc No.[id number]:11/01/2024 Patient:??Natalia KAN :1965?Age:59 Y?Sex:Fe male Address:[address] [place] [address] Subjective: * Chief Complaints: * ?MRI breast * Medical History:?? * Surgical History:?? * Hospitalization/Major Diagno stic Procedure:?? * Medications:?? Objective: Assessment: * Assessment: 1.??Family history of breast cancer - Z80.3?? Plan: * Treatment: * Procedure Codes:?? * true * Date:??
--- OUTSIDE RECORDS SUMMARY | 2025-01-14 14:17 | XMS_ITS | Encounter Summary ---
Author Organization [facility] Address [address] [place] [address] Care Team Providers Care Supervisor Photoengraving Name Role Phone Concepcion Fall MD Primary Care Provider [phone] Encounter Details Date Type Department Care Team Description 08/28/2015 Release of Information Medical Records [address] [place] [id number] Abstract, Provider Social History Tobacco Use Types [...] on filedocumented in this encounter Care Teams Supervisor Photoengraving Relationship Specialty Start Date End Date Concepcion Fall MD [address] [place] [address] PCP - General 04/13/10 documented as of this encounter
--- OUTSIDE RECORDS SUMMARY | 2025-01-14 14:17 | XMS_ITS | Encounter Summary ---
Author Organization [facility] Address [address] [place] [address] Care Team Providers Care Safety Instructor Name Role Phone Concepcion Fall MD Primary Care Provider Encounter Details Date Type Department Care Team Description 04/14/2015 Debone Processing Supervisor Report Medical Records [address] [place] [address] Glenn Veras MD Social History Tobacco Use [...] on filedocumented in this encounter Care Teams Safety Instructor Relationship Specialty Start Date End Date Concepcion Fall MD [address] [place] [address] [id number] PCP - General 04/13/10 documented as of this encounter
--- OUTSIDE RECORDS SUMMARY | 2025-01-14 14:17 | XMS_ITS | Encounter Summary ---
Author Organization [facility] Address [address] [place] [address] Care Team Providers Care Endoscopy Nurse Name Role Phone Concepcion Fall MD Primary Care Provider [phone] Encounter Details Date Type Department Care Team Description 12/23/2015 Refill OBGYN - [facility] [address] [place] [address] Beena Barraza CNM Social History Tobacco Use Types Packs/Day Years [...] encounter Miscellaneous Notes * Telephone Encounter - Gaviota Fuentes R.N. - 12/23/2015 12:[address] Wilkes - patient is requesting refill for ibuprofen. Last seen by you on Sunday 12/17 for preop Novasure, hysteroscopy and D&C. LLW * Telephone Encounter - Gaviota Fuentes R.N. - 12/23/2015 12:04 PM EDTFrom: Natalia Cadena To: Beena Barraza CNM Sent: 12/23/2015 11:17 AM EDT Subject: Medication Renewal Request Original authorizing provider: Beena Barraza CNM Natalia Cadena would like a refill of the following medications: ibuprofen (ADVIL,MOTRIN) 600 MG tablet [Beena Barraza CNM] Preferred pharmacy: [facility] Comment: Medication renewals requested in this message routed to other providers: levothyroxine (SYNTHROID, LEVOTHROID) 25 MCG tablet [Concepcion Fall MD] documented in this encounter Plan of Treatment Not on file documented as of this encounter Visit Diagnoses Not on filedocumented in this encounter Care Teams Endoscopy Nurse Relationship Specialty Start Date End Date Concepcion Fall MD [address] [place] [address] PCP - General 04/13/10 documented as of this encounter
--- OUTSIDE RECORDS SUMMARY | 2025-01-14 14:17 | XMS_ITS | Encounter Summary ---
Author Organization [facility] Address [address] [place] [address] Care Team Providers Care Dental Internship Name Role Phone Concepcion Fall MD Primary Care Provider [phone] Reason for Visit * Reason Comments E-prescribe Rx Request Encounter Details Date Type Department Care Team Description 05/13/2020 Refill Adult Medicine [address] [address] Helen Baird PA-C E-prescribe Rx Request Social [...] N/A Patients current insurance carrier is: Payor: [employer] [facility] [employer] / Plan: [facility] F 1+/$20 / ProductType: HMO [id number] documented in this encounter Plan of Treatment Not on file documented as of this encounter Visit Diagnoses Not on filedocumented in this encounter Care Teams Dental Internship Relationship Specialty Start Date End Date Concepcion Fall MD [address] [place] [address] PCP - General 04/13/10 documented as of this encounter
--- OUTSIDE RECORDS SUMMARY | 2025-01-14 14:17 | XMS_ITS | Clinical Summary ---
Author Organization [address] Address [address] [place] [address] Phone Care Team Providers Care Ssis Ssrs Developer Name Role Phone Concepcion Fall MD Primary Care Provider Allergies No known active allergies Medications levothyroxine [...] - 11/19/2024 11:59 PM EST Hospital Encounter [facility] MRI [address] [place] [address] Family history of malignant neoplasm [...] CORE W/IMAG GUID ENDOMETRIAL ABLATION 01/08/16 PROCEDURE: WA ENDOMETRIAL ABLTJ THERMAL W/O HYSTEROSCOPIC GUID; COMMENT: [...] Signed Date: 11/23/2024 11:02 ET Workstation ID: [id number] Transcribed By: Self Edit Transcribed Date: 11/23/2024 [...] Signed Date: 11/23/2024 11:02 ET Workstation ID: [id number] Transcribed By: Self Edit Transcribed Date: 11/23/2024 10:56 ET Debra GASPAR IMG MRI PROCEDURES Final Result * MG Mammo Digital Screening w Neno bilat (09/30/2024 8:12 AM EST) Anatomical Region Laterality Modality Breast Bilateral Mammography 09/30/2024 12:4 4 PM EST Impressions 09/30/2024 12:47 PM EST Benign. BI-RADS CATEGORY: 2 - BENIGN RECOMMENDATION: Screening bilateral mammogram is recommended in 1 year. Mammo Location: [facility], [address] [place] [address], [address], . -------- FINAL REPORT -------- Dictated By: Anita Munoz Dictated Date: 09/30/2024 12:44 ET Assigned Physician: Anita Munoz Reviewed and Electronically Signed By: Anita Munoz Signed Date: 09/30/2024 12:47 ET Workstation ID: [id number] Transcribed By: Self Edit Transcribed Date: 09/30/2024 [...] is recommended in 1 year. Mammo Location: [facility], [address] [place] [address], [address], . -------- FINAL REPORT -------- Dictated By: Anita Munoz Dictated Date: 09/30/2024 12:44 ET Assigned Physician: Anita Munoz Reviewed and Electronically Signed By: Anita Munoz Signed Date: 09/30/2024 12:47 ET Workstation ID: [id number] Transcribed By: Self Edit Transcribed Date: 09/30/2024 12:44 ET Result [facility] Osiris Gutierrez AUTO BODY TECHNICIAN IMG BI PROCEDURES Final Resul t * Cervical Cancer Screening: HPV (06/09/2021) [facility] Cervical Cancer Screening: HPV negative,a bstracted Result [facility] Provider HEALTH MAINTENANCE Final Result * (ABNORMAL) Lipid panel (06/11/2020) [facility] LDL/HDL Ratio 3 0 - 4 Triglycerides 123 0 - 150 mg/dL Cholesterol 218(A) 0 - 200 mg/dL HDL 80 >=40 mg/dL LDL Cholesterol 114(A) 0 - 100 mg/dL Blood Venous blood specimen / Unknown Result [facility] Provider LAB BLOOD ORDERABLES Mayra l Result * Colonoscopy (08/16/2016) [facility] Colonoscopy no interpretation , abstracted Anatomical Region Laterality Modality Other Result [facility] Provider HEALTH MAINTENANCE Final Result * Hepatitis C Screening (09/20/2013) [facility] Hepatitis C Screening ABSTRACTED us Historical Provider HEALTH MAINTENANCE Final Result from Last 3 Months or Most Recently Relevant to Health Maintenance Insurance [facility] Care Teams Ssis Ssrs Developer Relationship Specialty Start Date End Date Concepcion aFll MD [address] [place] [address] PCP - General 04/13/10
--- OUTSIDE RECORDS SUMMARY | 2025-01-14 14:17 | XMS_ITS | Patient Health Record ---
Author Organization [facility] Address [address] [place] [address] Care Team Providers Care Oil Field Roustabout Name Role Phone Rosa Schmitt Unavailable [phone] LATONIA DOWLING Unavailable [phone] ALLERGIES No Known Allergies RESULTS Component Value Reference Range Notes MR BREAST WO AND W CONTRAST BILAT Reviewed date:11/27/2024 01:13:25 PM Interpretation: Performing Lab: Notes/Report: Note See Note [facility], a member of [employer] Patient Name: TRISH KAN Date of : 1965 Reason for Exam: malignant neoplasm of breast Exam Date: 11/19/2024 [id number] EST Report Status: Final Ordering Provider: LATONIA [...] Signed Date: 025 11:02 ET Workstation ID: [id number] Transcribed By: Self Edit Transcribed Date: 11/23/2024 10:56 ET REASON FOR REFERRAL Reason Cervical cancer scre ening Diagnosis 1 Pap smear for cervic al cancer screening (Z12.4) Referral Organization [place] [address] Referring Provider First Name LATONIA Referring Provider Last Name JSOEY Referring Provider Speciality Internal M edicine Referred [...] Notes Problem Mixed hyperlipidemia (E78.2) Active confirmed 044284983 Problem Acquired hypothyroidism (E03.9) Active confirmed [id number] Problem Depression with anxiety (F41.8) Active confirmed 273923679 VITAL SIGNS Heart Rate 86 /min 10/31/2024 Blood pressure diastolic 78 mm Hg 10/31/2024 Oximetry 97 % 10/31/2024 Height 62 in 10/31/2024 Blood pressure systolic 122 mm Hg 10/31/2024 Weight 148 lbs 10/31/2024 BMI 27.07 kg/m2 10/31/2024 Encounters Encounter Location Date Provider Diagnosis [place] [address] [address] 07/17/2024 LATONIA DOWLING [place] [address] [address] 10/31/2024 LATONIA DOWLING Mixed hyperlipidemia E78.2 ; Acquired hypothyroidism E03.9 ; Depression with anxiety F41.8 and Family history of breast cancer Z80.3 [facility] [address] [place] [address] 10/31/2024 LATONIA DOWLING [address] [place] [address] 11/01/2024 LATONIA BIRNAOMI Family history of br east cancer Z80.[address] [facility] [address] [facility] [address] [place] [address] 11/13/2024 LATONIA DOWLING [address] [facility] [address] [place] [address] 11/25/2024 LATONIAANALY KIRKPATRICKNAOMI ASSESSMENTS Encounter Date Diagnosis Assessment Notes Treatment Notes Treatment Clinical Notes Section Notes 10/31/2024 Mixed hyperlipidemia (ICD-10 - E78.2) Trish is a 59-year-old female who presents to the office today for new patient evaluation. Patient is welcomed to the practice. They are coming from [facility]. Last complete physical exam with labs [...] Dictation was accomplished with the use of Wasabi 3D voice recognition software, which is prone to [...] to the practice. They are coming from [facility]. Last complete physical exam with labs [...] Dictation was accomplished with the use of [employer] 3D voice recognition software, which is prone to [...] to the practice. They are coming from [facility]. Last complete physical exam with labs [...] Dictation was accomplished with the use of Was[employer] 3D voice recognition software, which is prone to [...] to the practice. They are coming from [facility]. Last complete physical exam with labs [...] Dictation was accomplished with the use of Was[employer] 3D voice recognition software, which is prone to [...] Name:LATONIA DOWLING , 02/24/2025 08:00:00 AM, [address] [facility], [address], [place], [address], Insurance Providers Payer Name Payer Address Payer Phone Subscriber Number Group Number Insured Name Patient Relationship to Insured Coverage Start Date Coverage End Date [facility] [address] [place] [address] [id number] Trish Kan Self - patient is the insured 4 MEDICAL (GENERAL) HISTORY Medical History History ICD Code thyroid disease anxiety depression hearing loss
--- OUTSIDE RECORDS SUMMARY | 2025-01-14 14:17 | XMS_ITS | Clinical Summary ---
Author Organization [facility] Address [address] [place] [address] Care Team Providers Care Conservation Of Resources Commissioner Name Role Phone Concepcion Fall MD Primary Care Provider [phone] Allergies No known active allergies Medications Medication [...] HEPATITIS C SCREENING Completed 09/20/2013 Care Teams Conservation Of Resources Commissioner Relationship Specialty Start Date End Date Concepcion Fall MD [address] [place] [address] PCP - General 04/13/10
--- OUTSIDE RECORDS SUMMARY | 2025-01-14 14:17 | XMS_ITS ---
Author Organization [facility] Address [address] [place] [address] Care Team Providers Care Leasing Associate Name Role Phone Rosa Schmitt Unavailable [phone] LATONIA DOWLING Unavailable [phone] REASON FOR VISIT peer to peer MRI FYI Encounters Encounter Location Date Provider Diagnosis [facility] [facility] [address] [place] [address] 11/13/2024 LATONIA DOWLING PLAN OF TREATMENT Next Appt Details Provider Name:LATONIA DOWLING , 02/24/2025 08:00:00 AM, [address] [facility], [address], [place], [address], Progress Notes * Natalia KANDOB:1965 (59 yo F)Acc No.[id number]:11/13/2024 Patient:??Natalia KAN :1965?Age:59 Y?Sex:Fe male Address:[address] [place] [address] * true * Date:??
--- OUTSIDE RECORDS SUMMARY | 2025-01-14 14:17 | XMS_ITS | Encounter Summary ---
Author Organization [facility] Address [address] [place] [address] Care Team Providers Care Grades 1 6 Tutor Name Role Phone Concepcion Fall MD Primary Care Provider Gena Crespo MD Primary Care Provider Unavailable Encounter Details Date Type Department Care Team Description 03/24/2010 Hospital Medical Records [address] [place] [address] Bayron Nix MD Social History Tobacco Use [...] on filedocumented in this encounter Care Teams Grades 1 6 Tutor Relationship Specialty Start Date End Date Concepcion Fall MD [address] [place] [address] PCP - General 04/13/10 Gena Crespo MD PCP - General 02/28/0604/12 documented as of this encounter
--- OUTSIDE RECORDS SUMMARY | 2025-01-14 14:18 | XMS_ITS | Encounter Summary ---
Author Organization [facility] Address [address] [place] [address] Care Team Providers Care Game Farm Supervisor Name Role Phone Concepcion Fall MD Primary Care Provider [phone] Encounter Details Date Type Department Care Team Description 12/21/2018 Restaurant Line Cook Report Medical Records [address] [place] [address] Luis Peña PA-C Social History Tobacco Use [...] on filedocumented in this encounter Care Teams Game Farm Supervisor Relationship Specialty Start Date End Date Concepcion Fall MD [address] [place] [address] PCP - General 04/13/10 documented as of this encounter
--- OUTSIDE RECORDS SUMMARY | 2025-01-14 14:18 | XMS_ITS ---
Author Organization [facility] Address [address] [place] [address] Care Team Providers Care Lead Welder Name Role Phone Rosa Schmitt Unavailable [phone] LATONIA DOWLING Unavailable [phone] REASON FOR VISIT MRI breasts results Encounters Encounter Location Date Provider Diagnosis [address] [facility] [address] [place] [address] 11/25/2024 LATONIA DOWLING PLAN OF TREATMENT Next Appt Details Provider Name:LATONIA DOWLING , 02/24/2025 08:00:00 AM, [address], [address], [place], [address], Progress Notes * Natalia KANDOB:1965 (59 yo F)Acc No.[id number]:11/25/2024 Patient:??Natalia KAN :1965?Age:59 Y?Sex:Fe male Address:[address] [place] [address] * true * Date:??
--- OUTSIDE RECORDS SUMMARY | 2025-01-14 14:18 | XMS_ITS | Encounter Summary ---
Author Organization [facility] Address [address] [place] [address] Care Team Providers Care Embedded Processor Name Role Phone Concepcion Fall MD Primary Care Provider [phone] Encounter Details Date Type Department Care Team Description 07/29/2019 Orders Only Medical Records [address] [place] [address] Abstract, Provider Social History Tobacco Use Types [...] on filedocumented in this encounter Care Teams Embedded Processor Relationship Specialty Start Date End Date Concepcion Fall MD [address] [place] [address] PCP - General 04/13/10 documented as of this encounter
--- OUTSIDE RECORDS SUMMARY | 2025-01-14 14:18 | XMS_ITS | Encounter Summary ---
Author Organization [facility] Address [address] [place] [address] Care Team Providers Care Regulated Program Manager Name Role Phone Concepcion Fall MD Primary Care Provider [phone] Encounter Details Date Type Department Care Team Description 09/02/2014 Pt. Non Urgent Medic al Question OBGYN - [place] [address] [place] [address] jA Wilkes MD Social History Tobacco Use Types Packs/Day [...] on file documented as of this encounter Progress Notes * Beth Ding R.N. - 09/02/2014 2:04 PM ESTFrom: Natalia Cadena To: Aj Wilkes MD Sent: 09/02/2014 11:45 AM EST Subject: Test results Aba Wilkes, I was just wondering if you were able to view my recent test results and if so, are there any concerns? Thank you, Natalia Cadena documented in this encounter Plan of Treatment Not on file documented as of this encounter Visit Diagnoses Not on filedocumented in this encounter Care Teams Regulated Program Manager Relationship Specialty Start Date End Date Concepcion Fall MD [address] [place] [address] PCP - General 04/13/10 documented as of this encounter
== END 2025-01-14 11:49 | disposition home or self-care (01) ==
LOC: HO.HMGCX 11:48
DX: M25.552 Pain in left hip (principal)
CPT/HCPCS: 73502

== ENCOUNTER → 2025-01-14 11:52 | Outpatient (BNV) | payer OTHER, SELFPAY | PROVIDERS: Visit Provider Radiology Diagnostic Radiology | DX: M25.552 Pain in left hip (principal) | CPT/HCPCS: 73502 ==

== ENCOUNTER 2025-02-08 06:59 | Outpatient (REF) | payer OTHER, SELFPAY ==
--- OUTSIDE RECORDS SUMMARY | 2025-02-08 07:02 | XMS_ITS | Clinical Summary ---
Author Organization [facility] Address [address] [place] [address] Care Team Providers Care [place]field Program Coordinator Name Role Phone Concepcion Fall MD Primary Care Provider [phone] Allergies No known active allergies Medications Medication [...] age to complete this topic Care Teams [place] Program Coordinator Relationship Specialty Start Date End Date Concepcion Fall MD PCP - General Internal Medicine 08/26/19
--- OUTSIDE RECORDS SUMMARY | 2025-02-08 07:02 | XMS_ITS | Patient Health Record ---
Author Organization [facility] Address [address] [place] [address] Care Team Providers Care Hse Coordinator Name Role Phone Rosa Schmitt Unavailable [phone] LATONIA DOWLING Unavailable [phone] Allergies No Known Allergies Results Component Value Reference Range Notes MR BREAST WO AND W CONTRAST BILAT Reviewed date:11/27/2024 01:13:25 PM Interpretation: Performing Lab: Notes/Report: Note See Note [facility], a member of [employer] Patient Name: TRISH KAN Date of : 1965 Reason for Exam: malignant neoplasm of breast Exam Date: 11/19/2024 [id number] EST Report Status: Final Ordering Provider: LATONIA [...] Signed Date: 025 11:02 ET Workstation ID: [id number] Transcribed By: Self Edit Transcribed Date: 11/23/2024 10:56 ET Reason For Referral Reason Cervical cancer scre ening Diagnosis 1 Pap smear for cervic al cancer screening (Z12.4) Referral Organization [place] [address] Referring Provider First Name LATONIA Referring Provider Last Name JOSEY Referring Provider Speciality Internal M edicine Referred Provider Specialty OB - Gynecol ogy Clinical Notes Roxana Orourke 2024 10:19:56 AM >Referral printed and mailed to pt home. TY. Referral Priority Routine Medications Medication SIG (Take, Route, Frequency, Duration) Notes [...] EMPTY STOMACH Oral for 90 Days Active Problems Problem Type SNOMED Code ICD Code Onset Dates Problem Status W/U Status Risk Notes Problem 024013498 Mixed hyperlipidemia (E78.2) Active confirmed Problem 078869578 Acquired hypothyroidism (E03.9) Active confirmed Problem 105240870 Depression with anxiety (F41.8) Active confirmed Vital Signs Heart Rate 86 /min 10/31/2024 Blood pressure diastolic 78 mm Hg 10/31/2024 Oximetry 97 % 10/31/2024 Height 62 in 10/31/2024 Blood pressure systolic 122 mm Hg 10/31/2024 Weight 148 lbs 10/31/2024 BMI 27.07 kg/m2 10/31/2024 Encounters Encounter Location Date Provider Diagnosis [place] [address] [address] 10/31/2024 LATONIA DOWLING Mixed hyperlipidemia E78.2 ; Acquired hypothyroidism E03.9 ; Depression with anxiety F41.8 and Family history of breast cancer Z80.3 [place] [address] [place] [address] 10/31/2024 LATONIA BIRNAOMI [address] [facility] [address] [place] [address] 11/01/2024 LATONIA DOWLING Family history of br east cancer Z80.3 [facility] [address] [facility] [address] [place] [address] 11/13/2024 LATONIAANALY DOWLING [address] [facility] [address] [place] [address] 11/25/2024 LATONIA DOWLING Assessments Encounter Date Diagnosis (ICD Code) Assessment Notes Treatment Notes Treatment Clinical Notes Section Notes 10/31/2024 Mixed hyperlipidemia (ICD-10 - E78.2) Trish is a 59-year-old female who presents to the office today for new patient evaluation. Patient is welcomed to the practice. They are coming from [facility]. Last complete physical exam with labs [...] Dictation was accomplished with the use of TIKI.VN voice recognition software, which is prone to [...] to the practice. They are coming from [facility]. Last complete physical exam with labs [...] Dictation was accomplished with the use of TIK[employer] voice recognition software, which is prone to [...] to the practice. They are coming from [facility]. Last complete physical exam with labs [...] Dictation was accomplished with the use of TIK[employer] voice recognition software, which is prone to [...] to the practice. They are coming from [facility]. Last complete physical exam with labs [...] Dictation was accomplished with the use of TIKI.V[employer] voice recognition software, which is prone to medical misidentifications and grammatical errors. This are unintentional and the practitioner does try to identify and correct these, but some could still be present. Please do not hesitate to contact practitioner for clarification. Plan Of Treatment Pending Test Test Name Order Date MRI Breast w and w/o Contrast bilat 03/2025 MRI Breast w/o Contrast bilat 10/31/2024 Next Appt Details Provider Name:LATONIA DOWLING , 02/24/2025 08:00:00 AM, [address] [facility], [facility] [address], [place], [address], Insurance Providers Payer Name Payer Address Payer Phone Subscriber Number Group Number Insured Name Patient Relationship to Insured Coverage Start Date Coverage End Date [facility] [address] [place] [address] [phone] [id number] Trish Kan Self - patient is the insured 4 Medical (General) History Medical History History ICD Code thyroid disease anxiety depression hearing loss
--- OUTSIDE RECORDS SUMMARY | 2025-02-08 07:02 | XMS_ITS | Clinical Summary ---
Author Organization [address] Address [address] [place] [phone] Phone Care Team Providers Care Hypertrichologist Name Role Phone Concepcion Fall MD Primary Care Provider [phone] Allergies No known active allergies Medications levothyroxine [...] - 11/19/2024 11:59 PM EST Hospital Encounter [facility] MRI [address] [place] [address] Family history of malignant neoplasm [...] CORE W/IMAG GUID ENDOMETRIAL ABLATION 01/08/16 PROCEDURE: [place] ENDOMETRIAL ABLTJ THERMAL W/O HYSTEROSCOPIC GUID; COMMENT: [...] Signed Date: 11/23/2024 11:02 ET Workstation ID: [id number] Transcribed By: Self Edit Transcribed Date: 11/23/2024 [...] Signed Date: 11/23/2024 11:02 ET Workstation ID: [id number] Transcribed By: Self Edit Transcribed Date: 11/23/2024 10:56 ET Debra GASPAR IMG MRI PROCEDURES Final Result * MG Mammo Digital Screening w Neno bilat (09/30/2024 8:12 AM EST) Anatomical Region Laterality Modality Breast Bilateral Mammography 09/30/2024 12:4 4 PM EST Impressions 09/30/2024 12:47 PM EST Benign. BI-RADS CATEGORY: 2 - BENIGN RECOMMENDATION: Screening bilateral mammogram is recommended in 1 year. Mammo Location: [facility], [address] [place] [address], [address], . -------- FINAL REPORT -------- Dictated By: Anita Munoz Dictated Date: 09/30/2024 12:44 ET Assigned Physician: Anita Munoz Reviewed and Electronically Signed By: Anita Munoz Signed Date: 09/30/2024 12:47 ET Workstation ID: [id number] Transcribed By: Self Edit Transcribed Date: 09/30/2024 [...] is recommended in 1 year. Mammo Location: [facility], [address] [place] [address], [address], . -------- FINAL REPORT -------- Dictated By: Anita Munoz Dictated Date: 09/30/2024 12:44 ET Assigned Physician: Anita Munoz Reviewed and Electronically Signed By: Anita Munoz Signed Date: 09/30/2024 12:47 ET Workstation ID: [id number] Transcribed By: Self Edit Transcribed Date: 09/30/2024 12:44 ET Result [facility] Osiris Gutierrez [employer] MANAGER IMG BI PROCEDURES Final Resul t * Cervical Cancer Screening: HPV (06/09/2021) [facility] Cervical Cancer Screening: HPV negative,a bstracted Result [facility] Provider HEALTH MAINTENANCE Final Result * (ABNORMAL) Lipid panel (06/11/2020) [facility] LDL/HDL Ratio 3 0 - 4 Triglycerides 123 0 - 150 mg/dL Cholesterol 218(A) 0 - 200 mg/dL HDL 80 >=40 mg/dL LDL Cholesterol 114(A) 0 - 100 mg/dL Blood Venous blood specimen / Unknown Result [facility] Provider LAB BLOOD ORDERABLES Mayra l Result * Colonoscopy (08/16/2016) [facility] Colonoscopy no interpretation , abstracted Anatomical Region Laterality Modality Other Result [facility] Provider HEALTH MAINTENANCE Final Result * Hepatitis C Screening (09/20/2013) [facility] Hepatitis C Screening ABSTRACTED us Historical Provider HEALTH MAINTENANCE Final Result from Last 3 Months or Most Recently Relevant to Health Maintenance Insurance [facility] Care Teams Hypertrichologist Relationship Specialty Start Date End Date Concepcion Fall MD [address] [place] [id number] PCP - General 04/13/10
--- OUTSIDE RECORDS SUMMARY | 2025-02-08 07:02 | XMS_ITS ---
Author Organization [facility] Address [address] [place] [address] Care Team Providers Care Fur Sewer Name Role Phone Rosa Schmitt Unavailable [phone] LATONIA DOWLING Unavailable [phone] Encounters Encounter Location Date Provider Diagnosis [facility] [address] [facility] [address] [place] [address] 07/17/2024 LATONIA DOWLING Plan Of Treatment Next Appt Details Provider Name:LATONIA DOWLING , 02/24/2025 08:00:00 AM, [address] [facility], [facility] [address], [place], [phone], Progress Notes * LORETAAlessiajodyDOB:1965 (59 yo F)Acc No.[id number]:07/17/2024 Progress Notes Patient:?Natalia KAN Provider:JOAN DOWLING :1965???Age:58 Y???Sex:Female D ate:07/17/2024 Address:[address] [place], [place] [id number] Subjective: * Chief Complaints: * ??? * Medical History:? Objective: * Vitals:? Assessment: Plan: * Treatment: * Billing Information: * Visit Code:? * Procedure Codes:? * Electronic signature of YADIEL DOWLING PA-C, [id number] on 02/08/2025 at 07:01 AM EDT Sign off status: Pending * Provider:JOAN DOWLING Date:? Generated for Jocelyne kennedy/Faxing/eTransmitting on:?02/08/2025 07:01 AM EDT
[2025-02-08 11:16] LABS: MANUAL DIFF FLAG NO
[2025-02-08 11:33] LABS: Appearance Urine Clear; Color Urine Yellow; Glucose Urine UA Negative (Negative); Leukocyte Esterase Urine Negative (Negative); Nitrite Urine Negative (Negative); PH 6.5 (5.0-9.0); Specific Gravity - Urine 1.015 (1.005-1.025); Urine Blood Negative (Negative); Urine Ketones Negative (Negative); Urine Protein Negative (Neg-Trace)
[2025-02-08 11:36] LABS: Basophils Percent Auto 0.6 % (0-2); Eosinophils Absolute Auto 0.2 X10*3/uL (0.0-0.4); Eosinophils Percent Auto 3.3 % (0-4); Imm Gran Abs Auto 0.01 X10*3/uL (0.00-0.03); Imm Gran Pct Auto 0.2 % (0.0-0.4); Lymphocytes Absolute Auto 2.2 X10*3/uL (1.2-4.9); Lymphocytes Percent Auto 35.5 % (20-40); Mean Corpuscular HGB Conc 33.3 g/dl (31.0-35.0); Mean Corpuscular Hemoglobin 29.1 pg (27.0-33.0); Mean Corpuscular Volume 87.4 fL (80.0-98.0); Mean Platelet Volume 10.3 fL (9.4-12.3); Monocytes Absolute Auto 0.5 X10*3/uL (0.1-1.2); Monocytes Percent Auto 8.1 % (2-11); Neutrophils Absolute Auto 3.3 x10*3/uL (2.0-8.3); Neutrophils Percent Auto 52.3 % (45-73); Platelet Count 290 X10*3/uL (160-400); Red Blood Count 4.46 X10*6/uL (4.20-5.50); Red Cell Distribution Width 13.6 % (11.0-16.0); White Blood Count 6.3 X10*3/uL (4.8-10.8)
[2025-02-08 11:56] LABS: Alanine Aminotransferase 31 U/L (0-31); Albumin Level 3.4 g/dL (3.5-5.0); Alkaline Phosphatase 56 U/L (39-117); Anion Gap 9 (12-20); Aspartate Amino Transferase 44 U/L (5-31); Bilirubin Total 0.3 mg/dL (0.0-1.0); Blood Urea Nitrogen 14 mg/dL (9-16); Calcium 8.4 mg/dL (8.4-10.2); Carbon Dioxide 24 mmol/L (22-29); Chloride 113 mmol/L (96-108); Cholesterol 152 mg/dL (<200); Estimated Glomerular Filt Rate > 60; Glucose Fasting 91 mg/dL (60-99); HDL Cholesterol 59 mg/dL (>40); LDL Cholesterol Calculated 79 mg/dL (<100); Sodium 142 mmol/L (135-145); Total Protein 5.2 g/dL (6.5-8.0); Triglycerides 73 mg/dL (<150)
[2025-02-08 12:01] LABS: Free T4 (Free Thyroxine) 1.07 ng/dL (0.71-1.85); TSH reflex Free T4 3.66 uIU/mL (0.32-4.0); Vitamin D 25-OH Total 57.8 ng/mL (>30)
== END 2025-02-08 07:00 | disposition home or self-care (01) ==
LOC: HO.HMGCLDS 06:59
DX: Z00.00 Encounter for general adult medical examination without abnormal findings (principal)
CPT/HCPCS: 36415; 80053; 80061; 81003; 82306; 84439; 84443; 85025

== ENCOUNTER 2025-03-01 10:06 | Outpatient (AMB) | payer OTHER, SELFPAY ==
[2025-03-01 10:35] VITALS: BP 110/80; PULSE 75; RESP 15; O2SAT 98; BMI 28.3
--- NOTE | 2025-03-01 10:35 | MHC.OFFWIV ---
Intake Vital Signs 03/01/25 10:35 Height 5 ft 2.25 in Weight 156 lb BMI 28.3 BP 110/80 Blood Pressure Location Rt brachial Position Sitting Respiration 15 Pulse 75 Pulse Source Pulse Oximeter Pulse Oximetry (%) 98 Oxygen Delivery Method Room Air Intake Visit Reasons: EP-LT ear pain Intake Note: Pt is here today c/o Lt ear pain Patient Tobacco Use Status: Former Tobacco user Allergies No Known Allergies Allergy (Verified 04/21/25 08:31) HPI EP-LT ear pain HPI Details Patient is a 59-year-old female comes to the walk-in clinic complaining of pain to the left ear for over a week. She denies respiratory symptoms otherwise, postnasal drip, cough, fever chills, headache or dizziness, hearing loss, nausea vomiting or diarrhea, malaise or myalgias, or other significant associated symptoms. [facility] Medical History (Updated 04/21/25 @ 09:02 by FRANCISCO Wiley) Acute otitis media with effusion of both ears Hypothyroidism Tear of meniscus of right knee Anxiety Depression CVA (cerebral vascular accident) Surgical History Hx of breast biopsy History of endometrial ablation Family History Father Breast cancer Diabetes Stroke Mother Glaucoma Dementia Atrial fibrillation Son No problems noted. Daughter No problems noted. 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 Cognitive needs: No Hearing needs: No Vision needs: Yes (Contact lenses) Review of Systems Const All systems reviewed & are unremarkable except as noted in HPI and below Physical Exam Vital Signs: Last Vital Signs Pulse 75 03/01/25 10:35 Resp 15 03/01/25 10:35 BP 110/80 03/01/25 10:35 Pulse Ox 98 06/07/25 10:35 Oxygen Delivery Method Room Air 03/01/25 10:35 BMI result Body Mass Index 28.3 Const General: cooperative, healthy appearing, comfortable, no acute distress, alert, awake, Physically active and well groomed; No anxious, diaphoretic, ill appearing, intoxicated appearing, poor hygiene or tired appearing Nutritional Appearance: average body habitus Limitations: no limitations HEENT Head: Yes normal to inspection, Yes normocephalic and Yes atraumatic Ears: hearing grossly normal bilaterally, external ears normal, EAC's normal and TM abnormal dull, erythematous and with loss of landmarks; not with effusion, not perforated and not retracted General nose exam: Normal external nose present, Normal nasal mucous membranes and turbinates present, Normal septum present and No nasal discharge present Face and sinus: Yes normal facial exam, Yes sinuses nontender and Yes face symmetric Mouth: Normal oral and palatal mucosa present, lip normal and tongue normal Throat: Yes posterior oropharynx normal, No peritonsillar mass, No postnasal drainage, No uvular edema and No cobblestoning Eyes General: appearance normal, both eyes and all related structures Neck Neck: Yes normal visual inspection, Yes trachea midline, Yes supple, No anterior neck swelling and Yes lymphadenopathy (Mild submandibular) Resp Effort & Inspection: normal respiratory effort Cardio Rate: regular rate Skin Other: Good color, warm and dry Psych Appearance: grossly normal Mental Status: mental status grossly normal Speech and movement: Normal speech and movement present Affect: normal affect Attitude: cooperative Thought process: Normal thought process present Insight: Good insight present (Psych) Judgement: Good judgement present (Psych) Assessment & Plan Assessment & Plan (1) Otitis media: Code(s): H66.90 - Otitis media, unspecified, unspecified ear Qualifiers: Otitis media type: suppurative Chronicity: acute Laterality: bilateral Recurrence: non-recurrent Spontaneous tympanic membrane rupture: without spontaneous rupture Qualified Code(s): H66.003 - Acute suppurative otitis media without spontaneous rupture of ear drum, bilateral Plan: Patient is a 59-year-old female with otitis media, left greater than right. Will write for Augmentin, and should follow up if symptoms persist or worsen. She can either come to the walk-in again or see her PCP. She knows to go to the emergency department with any worrisome symptoms. Medications: New amoxicillin-pot clavulanate 875-125 mg 1 tab PO BID 14 tabs 0RF 7 days Coding Level of Care Code Est Pt Level 4 (21363) Diagnoses Non-recurrent acute suppurative otitis media of both ears without spontaneous rupture of tympanic membranes H66.003 Otitis media type: suppurative Chronicity: acute Laterality: bilateral Recurrence: non-recurrent Spontaneous tympanic membrane rupture: without spontaneous rupture
== END 2025-03-01 11:38 | disposition home or self-care (01) ==
LOC: HO.HMCWIC 10:06
PROVIDERS: Visit Provider Physician Assistant Medical
DX: H66.003 Acute suppurative otitis media without spontaneous rupture of ear drum, bilateral (principal)

== ENCOUNTER → 2025-03-01 10:06 | Outpatient (BNVA) | payer OTHER, SELFPAY | PROVIDERS: Visit Provider Physician Assistant Medical ==

== ENCOUNTER 2025-03-20 12:58 | Outpatient (AMB) | payer OTHER, SELFPAY ==
[2025-03-20 13:04] VITALS: BP 108/62; PULSE 66; TEMP 36.5; O2SAT 98; BMI 29.0
--- NOTE | 2025-03-20 13:04 | AM.OFFWIN_ITS ---
Intake Vital Signs 03/20/25 13:04 Height 5 ft 2.25 in Weight 160 lb BMI 29.0 BP 108/62 Blood Pressure Location Lt brachial Position Sitting Pulse 66 Pulse Source Pulse Oximeter Temp 97.7 F Temp Source Oral Pulse Oximetry (%) 98 Oxygen Delivery Method Room Air Intake Visit Reasons: EP-lt ear pain Intake Note: pt presents with LT ear pain and left sided face pain 4-5 weeks, denies injury. Patient Tobacco Use Status: Former Tobacco user Allergies No Known Allergies Allergy (Verified 03/20/25 13:06) HPI HPI Comments History of Present Illness Details 59 y/o Female patient who presents to [facility] walk in clinic with c/o Left ear pain and pressure that radiates down to her left Jaw and neck for few weeks now. She has been using Claritin and Flonase with minimal relief. Denies headaches or dizziness. [facility] Medical History (Updated 03/20/25 @ 13:16 by Chantal Elaine NP) Acute otitis media with effusion of both ears Hypothyroidism Tear of meniscus of right knee Anxiety Depression CVA (cerebral vascular accident) Surgical History Hx of breast biopsy History of endometrial ablation Family History Father Breast cancer Diabetes Stroke Mother Glaucoma Dementia Atrial fibrillation Son No problems noted. Daughter No problems noted. Sister FH: mental illness Paternal Grandfather Stroke Paternal Grandmother Stroke Social History Household Members: Spouse Housing: House Do you presently have visiting nurse or other home services: No Alcohol intake: current Alcohol intake frequency: a few times a month Patient Tobacco Use Status: Former Tobacco user Tobacco use type: Cigarette and Cigar Years Smoked: 5 e-Cigarette/Vaping Use: Never Used Second Hand Smoke Exposure: Yes service: No Current occupational status: employed Current occupation: [employer] Cognitive needs: No Hearing needs: No Vision needs: Yes (Contact lenses) Review of Systems Const All systems reviewed & are unremarkable except as noted in HPI and below Physical Exam Vital Signs: Last Vital Signs Temp 97.7 F 03/20/25 13:04 Pulse 66 03/20/25 13:04 BP 108/62 03/20/25 13:04 Pulse Ox 98 06/26/25 13:04 Oxygen Delivery Method Room Air 03/20/25 13:04 BMI result Body Mass Index 29.0 Const General: no acute distress Nutritional Appearance: overweight Orientation/consciousness: patient oriented x3 HEENT Head: Yes normocephalic Ears: external ears normal and TM abnormal bulging, wth effusion (clear fluid) and with fluid behind the TM bilateral General nose exam: Abnormal mucous membranes and turbinates present boggy Face and sinus: Yes sinuses nontender Mouth: moist mucous membranes Resp Effort & Inspection: normal respiratory effort Cardio Heart sounds: S1 normal heart sound present and S2 normal heart sound present Neuro General: patient oriented x3 Assessment & Plan Assessment & Plan (1) Acute otitis media with effusion of both ears: Code(s): H65.193 - Other acute nonsuppurative otitis media, bilateral Plan: Advised to use Claritin BID for 7-10 days Advised to Add Flonase BID Acetaminophen for pain relief No infection present - TM with fluid B/L ears. Coding Level of Care Code Est Pt Level 4 (09740) Diagnoses Acute otitis media with effusion of both ears H65.193 Time Spent (min) 20
--- OUTSIDE RECORDS SUMMARY | 2025-03-20 15:26 | XMS_ITS | Encounter Summary ---
Author Organization [facility] Address [address] [place] [address] Care Team Providers Care Account Retention Representative Name Role Phone Concepcion Fall MD Primary Care Provider [phone] Gena Crespo MD Primary Care Provider Unavailable Encounter Details Date Type Department Care Team Description 03/24/2010 Hospital Medical Records [address] [place] [id number] Bayron Nix MD Social History Tobacco Use [...] on filedocumented in this encounter Care Teams Account Retention Representative Relationship Specialty Start Date End Date Concepcion Fall MD [address] [place] [address] PCP - General 04/13/10 Gena Crespo MD PCP - General 02/28/0604/12 documented as of this encounter
== END 2025-03-20 14:03 | disposition home or self-care (01) ==
PROVIDERS: Visit Provider Nurse Practitioner Family
DX: H65.193 Other acute nonsuppurative otitis media, bilateral (principal)

== ENCOUNTER 2025-04-21 08:17 | Outpatient (AMB) | payer OTHER, SELFPAY ==
--- OUTSIDE RECORDS SUMMARY | 2025-03-25 04:15 | XMS_ITS ---
Author Organization [facility] [address] Address [address] [place] [address] Care Team Providers Care Boat Mechanic Name Role Phone Keshia Rosa Unavailable [phone] LATONIA DOWLING Unavailable [phone] Encounters Encounter Location Date Provider Diagnosis [facility] [address] [address] 03/25/2025 LATONIA DOWLING Plan Of Treatment No Information Progress Notes * Natalia KANDOB:1965 (59 yo F)Acc No.[id number]:03/25/2025 CPE Patient: Annabel SPRAGUEly Provider: Lauro DOWLING :1965 A ge:59 Y S ex:Female Date:03/25/2025 Address:[address] [place], [place] [id number] Subjective: * Chief Complaints: * * Medical History: Objective: * Vitals: Assessment: Plan: * Treatment: * Images: Billing Information: * Visit Code: * Procedure Codes: Care Plan Details* * Electronic signature of YADIEL DOWLING PA-C, [id number] on 04/21/2025 at 08:26 AM EDT Sign off status: Pending * Provider: Lauro DOWLING Date: 03/25/2025 Generated for Jocelyne kennedy/Qasim/eTjennifer on: 04/21/2025 08:26 AM EDT
--- NOTE | 2025-04-21 08:20 | A.OFFPC_ITS ---
Vital Signs 04/21/25 08:22 Height 5 ft 2.25 in Weight 161 lb 8 oz BMI 29.3 BP 112/68 Blood Pressure Location Lt brachial Position Sitting Pulse 73 Pulse Source Pulse Oximeter Temp 97.1 F Temp Source Temporal Artery Scan Pulse Oximetry (%) 97 Oxygen Delivery Method Room Air Intake Visit Reasons: annual physical Intake Note: Patient is here today for a physical. Used Car Make Ready Mechanic Required: No Jacquard Lace Weaver: Not Required per policy Accompanied by: Self / Same As Patient Allergies No Known Allergies Allergy (Verified 04/21/25 08:31) Medication List - Last Reconciled 04/21/25 by FRANCISCO Wiley atorvastatin 40 mg PO DAILY cetirizine (Zyrtec) 10 mg PO DAILY citalopram 10 mg PO DAILY estradiol 1 patch transdermal QWEEK fluticasone propionate 50 mcg/actuation (Flonase Allergy Relief) 2 sprays intranasal BID levothyroxine 75 mcg PO DAILY progesterone micronized 100 mg PO BEDTIME thiamine HCl (vitamin B1) 100 mg PO DAILY Tobacco use date assessed: 04/21/25 Dental Screening Dental Screen Date: 01/01/25 HPI annual physical HPI Details The patient is present for annual physical. Recent labs and diagnostic to be reviewed Dentist: up to date Eye: up to date Snellen: Right: Left: Corrected vision:yes, contacts and glasses STI screening: Colonoscopy: due this year, will refer to GI Pap Smer:May Mammogram: 09/2024-MRI- and showed benign lumb PHQ-9: Flu: up to date COVID: x5 Tdap: done 2020 Diet:regular but trying to get more protein Exercise: reports that she is exercise 5 ot 6 days a week with weights and cardios The patient is a 59-year-old female presenting with a wellness check and follow- up on previous ear infection issues. The patient has a history of elevated liver enzymes, noted during routine lab work, with a slight elevation attributed to current medication. Monitoring is planned with a recheck in three months. The patient experienced an ear infection with fluid accumulation, causing pressure and discomfort. Treatment involved antibiotics and Claritin, leading to improvement with occasional cracking sounds. The patient was treated for ear infection prior-still sound some cracking sounds every once in awhile. No s/sx of infection or effusion on exam. Preventative care includes a due colonoscopy as the patient turns 60, a mammogram completed in September, and up-to-date vaccinations. Pap smear scheduled for May 2025 [facility] Medical History (Updated 04/21/25 @ 09:02 by FRANCISCO Wiley) Acute otitis media with effusion of both ears Hypothyroidism Tear of meniscus of right knee Anxiety Depression CVA (cerebral vascular accident) Surgical History Hx of breast biopsy History of endometrial ablation Family History Father Breast cancer Diabetes Stroke Mother Glaucoma Dementia Atrial fibrillation Son No problems noted. Daughter No problems noted. 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 Cognitive needs: No Hearing needs: No Vision needs: Yes (Contact lenses) Questionnaire Thrive Questionnaire Date Thrive assessed: 12/29/24 I am a: Patient What is your living situation today?: I have a steady place to live Within the past 12 months, did the food you bought not last and you didn't have the money to get more?: Never true Within the past 12 months, did you worry whether your food would run out before you got money to buy more?: Never true Do you have trouble paying for medicines?: No Do you have trouble getting transportation to medical appointments?: No Do you have trouble paying your heating and electricity bill?: No Do you have trouble taking care of your child, family member or friend?: No Do you have trouble with day-to-day activities such as bathing, preparing meals, shopping, managing finances, etc.?: No Are you currently unemployed and looking for a job?: No Are you interested in more education?: No Please select the resources that you would like help with: None Currently or been in a relationship where the following occur: No concerns reported THRIVE Score: 0 FRIDA-7 AMB Questionnaire FRIDA-7 Date FRIDA - 7 assessed: 01/01/25 Source: Developed by Drs. Cosme Engle, Lianne Burciaga, Roland Scott and colleagues, with an educational moo from [employer]. Review of Systems Const Denies headache(s) Eyes Denies loss of vision ENT Denies vertigo, Denies dizziness, Denies headache(s), Denies sore throat and Reports other (cracking sound in the left ear intermittently) Card Denies chest pain, Denies leg edema and Denies lightheadedness Resp Denies cough, Denies hemoptysis and Denies wheezing GI Denies abdominal pain, Denies melena, Denies constipation, Denies diarrhea and Denies vomiting Denies urinary frequency, Denies dysuria and Denies urinary urgency Musc Denies arthralgias, Denies joint swelling, Denies numbness and Denies tingling Neuro Denies Abnormal speech present, Denies behavioral changes, Denies vertigo, Denies dizziness, Denies headache(s), Denies loss of vision, Denies memory loss, Denies numbness and Denies tingling Psych Denies anxiety, Denies behavioral changes, Denies depression, Denies memory loss and Denies panic attacks Spike/Lymph Denies easy bleeding and Denies easy bruising Aller/Immun Denies wheezing Physical exam (Primary Care) Vital Signs: Last Vital Signs Temp 97.1 F 04/21/25 08:22 Pulse 73 04/21/25 08:22 BP 112/68 04/21/25 08:22 Pulse Ox 97 04/21/25 08:22 Oxygen Delivery Method Room Air 04/21/25 08:22 BMI result Body Mass Index 29.3 Tobacco/Smoking Status: Tobacco use Status Tobacco use date assessed 04/21/25 04/21/25 08:28 Patient Tobacco Use Status Former Tobacco user 04/21/25 08:28 Tobacco use type Cigarette,Cigar 04/21/25 08:28 e-Cigarette/Vaping Use Never Used 04/21/25 08:28 Thrive Assessment: Date of Thrive Assessment Date Thrive assessed 12/29/24 04/21/25 08:28 Currently or been in a relationship where the following occur: No concerns reported Const General: healthy appearing, no acute distress, alert and awake Nutritional Appearance: well nourished Orientation/consciousness: oriented to person, oriented to place and oriented to time HENMT Ears: TM's normal bilaterally General nose exam: Normal nasal mucous membranes and turbinates present Eyes Conjunctivae: conjunctivae normal Sclerae: sclerae normal Pupils: Equal, round and reactive pupils present Neck Neck: Yes no lymphadenopathy and Yes no JVD Thyroid: Thyroid normal Carotids: no bruits Resp Effort & Inspection: normal respiratory effort and not tachypneic Auscultation: no crackles, no rales, no rhonchi and no wheezes Cardio Rate: regular rate Rhythm: regular rhythm Heart sounds: no murmurs and normal S1 and S2 GI Palpation (GI): Soft to palpation, nontender, no hepatomegaly and no splenomegaly Auscultation: normal bowel sounds Skin General skin exam: no rashes or lesions noted and dry skin Neuro General: oriented to person, oriented to place and oriented to time Cranial nerves: Yes CN's II-XII intact bilaterally and Yes Equal, round and reactive pupils present Speech: No Abnormal speech present Gait exam (Neuro): Normal gait present Motor exam (neuro): no tremor noted Deep tendon reflexes (DTR's): Right triceps reflex intensity grade: 2+, Left triceps reflex intensity grade: 2+, Rt Biceps (C5, C6): 2+, Left biceps reflex intensity grade: 2+, Right brachioradialis reflex intensity grade: 2+, Left brachioradialis reflex intensity grade: 2+, Right patellar reflex intensity grade: 2+ and Left patellar reflex intensity grade: 2+ Extrem Right upper extremity: full ROM Left upper extremity: full ROM Right lower extremity: full ROM; no edema Left lower extremity: full ROM; no edema Psych Mental Status: mental status grossly normal Speech and movement: Normal speech and movement present Affect: normal affect Attitude: cooperative Thought process: Normal thought process present Results Reviewed Results Reviewed: Laboratory Tests 02/08/25 02/08/25 07:27 07:30 WBC 6.3 RBC 4.46 Hgb 13.0 Hct 39.0 MCV 87.4 MCH 29.1 MCHC 33.3 RDW 13.6 Plt Count 290 MPV 10.3 Immature Gran % (Auto) 0.2 Sodium 142 Potassium 4.0 Chloride 113 H Carbon Dioxide 24 Anion Gap 9 L BUN 14 Creatinine 0.74 Estimated GFR > 60 Fasting Glucose 91 Calcium 8.4 Total Bilirubin 0.3 AST 44 H ALT 31 Alkaline Phosphatase 56 Total Protein 5.2 L Albumin 3.4 L Triglycerides 73 Cholesterol 152 LDL Cholesterol, Calc 79 HDL Cholesterol 59 25-OH Vitamin D Total 57.8 TSH 3.66 Free T4 1.07 Urine Color Yellow Urine Appearance Clear Urine pH 6.5 Ur Specific [place] 1.015 Urine Protein Negative Urine Glucose (UA) Negative Urine Ketones Negative Urine Blood Negative Urine Nitrite Negative Ur Leukocyte Esterase Negative Coding Level of Care Code Est Pt Prev Care 40-64y(82234) Diagnoses Annual physical exam Z00.00 Pure hypercholesterolemia E78.00 Hyperlipidemia type: pure hypercholesterolemia Anxiety F41.9 Depression, unspecified depression type F32.A Depression Type: unspecified Hypothyroidism, unspecified type E03.9 Hypothyroidism type: unspecified Elevated liver enzymes R74.8 Left hip pain M25.552 Hair thinning L65.9 Encounter for colorectal cancer screening Z12.11; Z12.12 Acute otitis media with effusion of both ears H65.193 Time Spent (min) 37 Assessment & Plan Assessment & Plan (1) Annual physical exam: Code(s): Z00.00 - Encounter for general adult medical examination without abnormal findings Category: Medical Plan: Preventive guidelines and recent labs and diagnostic data reviewed with the patient. The patient is due for a colonoscopy referral was placed she had one 10 years ago. Patient had a mammogram in September and is scheduled to have her Pap smear in May. (2) HLD (hyperlipidemia): Code(s): E78.5 - Hyperlipidemia, unspecified Category: Medical Qualifiers: Hyperlipidemia type: pure hypercholesterolemia Qualified Code(s): E78.00 - Pure hypercholesterolemia, unspecified Plan: Triglycerides 73, total cholesterol 152, LDL 79, HDL 59 Discussed lifestyle modifications including dietary changes and physical activity Continue atorvastatin 40 mg daily We will repeat lipid panel in 3 months (3) Anxiety: Code(s): F41.9 - Anxiety disorder, unspecified Category: Medical Plan: Encouraged CBT Continue citalopram 10 mg daily Denies SI/HI (4) Depression: Code(s): F32.A - Depression, unspecified Category: Medical Qualifiers: Depression Type: unspecified Qualified Code(s): F32.A - Depression, unspecified Plan: Same as above (5) Hypothyroidism: Code(s): E03.9 - Hypothyroidism, unspecified Category: Medical Qualifiers: Hypothyroidism type: unspecified Qualified Code(s): E03.9 - Hypothyroidism, unspecified Plan: Patient thyroid function within normal limits-euthyroid Continue levothyroxine 75 mcg daily We will recheck TFTs in 3 months (6) Elevated liver enzymes: Code(s): R74.8 - Abnormal levels of other serum enzymes Category: Medical Plan: AST slightly elevated at 44 Increase foods high in fat, limit use of alcohol/Tylenol We will repeat labs in 3 months (7) Left hip pain: Code(s): M25.552 - Pain in left hip Category: Medical Plan: Patient denies pain today. Recently she had complained of ongoing left hip pain. X-ray of the left hip was completed with no acute findings. We will continue to monitor at this time (8) Hair thinning: Code(s): L65.9 - Nonscarring hair loss, unspecified Category: Medical Plan: Patient was referred to Dermatology on her previous visit (9) Encounter for colorectal cancer screening: Code(s): Z12.11 - Encounter for screening for malignant neoplasm of colon; Z12.12 - Encounter for screening for malignant neoplasm of rectum Category: Medical Plan: Patient had a colonoscopy when she was 50. She will be turning 60 this year. GI referral placed could repeat colonoscopy. (10) Acute otitis media with effusion of both ears: Code(s): H65.193 - Other acute nonsuppurative otitis media, bilateral Category: Medical Plan: The patient was treated previously for ear infection and effusion. She is still hearing some cracking sounds every once in a while in her left ear. On exam no signs symptoms of infection or effusion noted. We will continue to monitor Plan Follow up in 3 months Orders: Orders Lipid Panel 3 Months E03.9 - Hypothyroidism, unspecified, E78.5 - Hyperlipidemia, unspecified, F32.A - Depression, unspecified, F41.9 - Anxiety disorder, unspecified, R74.8 - Abnormal levels of other serum enzymes Free T4 (Free Thyroxine) 3 Months E03.9 - Hypothyroidism, unspecified, E78.5 - Hyperlipidemia, unspecified, F32.A - Depression, unspecified, F41.9 - Anxiety disorder, unspecified, R74.8 - Abnormal levels of other serum enzymes Comprehensive [place]. Panel Fast 3 Months E03.9 - Hypothyroidism, unspecified, E78.5 - Hyperlipidemia, unspecified, F32.A - Depression, unspecified, F41.9 - Anxiety disorder, unspecified, R74.8 - Abnormal levels of other serum enzymes UA CC w/rflx Micro + Cult 3 Months E03.9 - Hypothyroidism, unspecified, E78.5 - Hyperlipidemia, unspecified, F32.A - Depression, unspecified, F41.9 - Anxiety disorder, unspecified, R74.8 - Abnormal levels of other serum enzymes Vitamin D 25-OH Total 3 Months E03.9 - Hypothyroidism, unspecified, E78.5 - Hyperlipidemia, unspecified, F32.A - Depression, unspecified, F41.9 - Anxiety disorder, unspecified, R74.8 - Abnormal levels of other serum enzymes TSH reflex Free T4 3 Months E03.9 - Hypothyroidism, unspecified, E78.5 - Hyperlipidemia, unspecified, F32.A - Depression, unspecified, F41.9 - Anxiety disorder, unspecified, R74.8 - Abnormal levels of other serum enzymes Referrals Gastroenterology Referral Z12.11 - Encounter for screening for malignant neoplasm of colon, Z12.12 - Encounter for screening for malignant neoplasm of rectum
[2025-04-21 08:22] VITALS: BP 112/68; PULSE 73; TEMP 36.2; O2SAT 97; BMI 29.3
--- OUTSIDE RECORDS SUMMARY | 2025-04-21 08:26 | XMS_ITS | Clinical Summary ---
Author Organization [facility] Address [address] [place] [address] Care Team Providers Care Technologist Infectious Disease Name Role Phone Concepcion Fall MD Primary Care Provider Allergies No known active allergies Medications Medication [...] or Tdap) 06/28/2021 06/28/2011 Influenza Vaccine (#1) 2025 6, 06/11/2013, 06/06/2012, Additional history exists Pneumococcal Vaccine Aged Out 03/23/2010 No long er eligible based on patient's age to complete this topic RSV Ped < 20 months Aged Out No longe r eligible based on patient's age to complete this topic Care Teams Technologist Infectious Disease Relationship Specialty Start Date End Date Concepcion Fall MD PCP - General Internal Medicine 08/26/19
--- OUTSIDE RECORDS SUMMARY | 2025-04-21 08:26 | XMS_ITS | Clinical Summary ---
Author Organization [address] Address [address] [place] [id number] Phone Care Team Providers Care Commercial Correspondent Name Role Phone Concepcion Fall MD Primary Care Provider [phone] Allergies No known active allergies Medications levothyroxine [...] stypia on biopsy, follows with dermatology, 09/02/10 Immunizations Name Administration Dates Next Due Influenza [...] CORE W/IMAG GUID ENDOMETRIAL ABLATION 01/08/16 PROCEDURE: CT ENDOMETRIAL ABLTJ THERMAL W/O HYSTEROSCOPIC GUID; COMMENT: [...] of 3 - 19+ 3-dose series) 1984 HIV Screening 09/03/2022 Social Influencers of Health Screening 09/03/2022 Zoster Vaccines (2 of 2) 09/15/2024 07/21/2024 Depression Screening 09/25/2024 Influenza Vaccine (#1) 2025 , 06/16/2023, 06/21/2022, Additional history exists Cholesterol Screening (Lipid Panel) 06/11/2025 06/11/2020 Cervical Cancer Screening: HPV 06/09/2026 06/09/2021 Colorectal Cancer Screening: Colonoscopy 08/16/2026 08/16/2016, 08/16/2016 Breast Cancer Screening 09/30/2026 09/30/19, 09/22/2023, 09/15/2022, Additional history exists DTaP,Tdap,and Td Vaccines (4 - Td or Tdap) 07/05/2031 07/05/2021, 06/28/2011, 12/18/2003 RSV Immunization Adult Patients (1 - 1-dose 75+ series) 2040 Hepatitis C Screening Completed 09/20/2013 COVID-19 Vaccine Completed 07/07/2024, , 04/06/2022, Additional history exists Pneumococcal Vaccine: 50+ Years Completed 07/21/2024, 03/23/2010 HIB Vaccines Aged Out No longer eligi [...] Procedure Name Priority Date/Time Associated Diagnosis Comments MG MAMMO DIGITAL SCREENING W NENO BILAT Routine 09/30/2024 8:12 AM EST Encounter for screening mammogram for breast cancer HM HPV Routine 06/09/2021 LIPID PANEL Routine 06/11/2020 COLONOSCOPY Routine 08/16/2016 HEPATITIS C SCREENING Routine 09/20/2013 from Last 3 Months or Most Recently Relevant to Health Maintenance Results * MG Mammo Digital Screening w Neno bilat (09/30/2024 8:12 AM EST) Anatomical Region Laterality Modality Breast Bilateral Mammography 09/30/2024 12:4 4 PM EST Impressions 09/30/2024 12:47 PM EST Benign. BI-RADS CATEGORY: 2 - BENIGN RECOMMENDATION: Screening bilateral mammogram is recommended in 1 year. Mammo Location: [facility], [address] [place] [address], [id number], . -------- FINAL REPORT -------- Dictated By: Anita Munoz Dictated Date: 09/30/2024 12:44 ET Assigned Physician: Anita Munoz Reviewed and Electronically Signed By: Anita Munoz Signed Date: 09/30/2024 12:47 ET Workstation ID: [id number] Transcribed By: Self Edit Transcribed Date: 09/30/2024 12:44 ET Narrative 09/30/2024 12:47 PM EST CLINICAL: 59 years old, Female, routine annual exam. COMPARISON: Mammograms dating back to 08/28/2020 with most recent of 09/22/2023. TECHNIQUE: Bilateral MLO and CC views were obtained digitally with 3-D mammogram (digital breast tomosynthesis). Computer-aided detection was utilized in evaluation of this exam (CAD). FINDINGS: There is no evidence of suspicious mass or architectural distortion. No worrisome calcifications are evident. There is a biopsy clip in the upper outer left breast. There has been no significant change from prior exam(s). BREAST DENSITY: B - There are scattered [...] is recommended in 1 year. Mammo Location: [facility], [address] [place] [address], [id number], . -------- FINAL REPORT -------- Dictated By: Anita Munoz Dictated Date: 09/30/2024 12:44 ET Assigned Physician: Anita Munoz Reviewed and Electronically Signed By: Anita Munoz Signed Date: 09/30/2024 12:47 ET Workstation ID: [id number] Transcribed By: Self Edit Transcribed Date: 09/30/2024 12:44 ET Osiris Gutierrez GRAPHIC ARTIST IMG BI PROCEDURES Final Resul t * Cervical Cancer Screening: HPV (06/09/2021) Pathologist [facility] Cervical Cancer Screening: HPV negative,a bstracted Historical Provider HEALTH MAINTENANCE Final Result * (ABNORMAL) Lipid panel (06/11/2020) LDL/HDL Ratio 3 0 - 4 Triglycerides 123 0 - 150 mg/dL Cholesterol 218(A) 0 - 200 mg/dL HDL 80 >=40 mg/dL LDL Cholesterol 114(A) 0 - 100 mg/dL Blood Venous blood specimen / Unknown Historical Provider LAB BLOOD ORDERABLES Mayra l Result * Colonoscopy (08/16/2016) Colonoscopy no interpretation , abstracted Anatomical Region Laterality Modality Other Historical Provider HEALTH MAINTENANCE Final Result * Hepatitis C Screening (09/20/2013) Hepatitis C Screening ABSTRACTED us Historical Provider HEALTH MAINTENANCE Final Result from Last 3 Months or Most Recently Relevant to Health Maintenance Insurance [facility] Care Teams Commercial Correspondent Relationship Specialty Start Date End Date Concepcion Fall MD [address] [place] [id number] PCP - General 04/13/10
--- OUTSIDE RECORDS SUMMARY | 2025-04-21 08:26 | XMS_ITS ---
Author Name [facility] Organization Unknown Care Team Organization Name Specialty Phone Email Start Date End Da meme [facility] Fall Primary Care 08/02/2022 05/13/2024
--- NOTE | 2025-04-21 08:51 | MHC.PC.OV ---
Vital Signs 04/21/25 08:22 Height 5 ft 2.25 in Weight 161 lb 8 oz BMI 29.3 BP 112/68 Blood Pressure Location Lt brachial Position Sitting Pulse 73 Pulse Source Pulse Oximeter Temp 97.1 F Temp Source Temporal Artery Scan Pulse Oximetry (%) 97 Oxygen Delivery Method Room Air Intake Visit Reasons: annual physical Allergies No Known Allergies Allergy (Verified 04/21/25 08:31) Medication List - Last Reconciled 04/21/25 by FRANCISCO Wiley atorvastatin 40 mg PO DAILY cetirizine (Zyrtec) 10 mg PO DAILY citalopram 10 mg PO DAILY estradiol 1 patch transdermal QWEEK fluticasone propionate 50 mcg/actuation (Flonase Allergy Relief) 2 sprays intranasal BID levothyroxine 75 mcg PO DAILY progesterone micronized 100 mg PO BEDTIME thiamine HCl (vitamin B1) 100 mg PO DAILY Tobacco use date assessed: 04/21/25 Dental Screening Dental Screen Date: 01/01/25 [facility] Medical History (Updated 04/21/25 @ 08:53 by FRANCISCO Wiley) Acute otitis media with effusion of both ears Hypothyroidism Tear of meniscus of right knee Anxiety Depression CVA (cerebral vascular accident) Surgical History Hx of breast biopsy History of endometrial ablation Family History Father Breast cancer Diabetes Stroke Mother Glaucoma Dementia Atrial fibrillation Son No problems noted. Daughter No problems noted. 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 Cognitive needs: No Hearing needs: No Vision needs: Yes (Contact lenses) Questionnaire Thrive Questionnaire Date Thrive assessed: 12/29/24 I am a: Patient What is your living situation today?: I have a steady place to live Within the past 12 months, did the food you bought not last and you didn't have the money to get more?: Never true Within the past 12 months, did you worry whether your food would run out before you got money to buy more?: Never true Do you have trouble paying for medicines?: No Do you have trouble getting transportation to medical appointments?: No Do you have trouble paying your heating and electricity bill?: No Do you have trouble taking care of your child, family member or friend?: No Do you have trouble with day-to-day activities such as bathing, preparing meals, shopping, managing finances, etc.?: No Are you currently unemployed and looking for a job?: No Are you interested in more education?: No Please select the resources that you would like help with: None Currently or been in a relationship where the following occur: No concerns reported THRIVE Score: 0 FRIDA-7 AMB Questionnaire FRIDA-7 Date FRIDA - 7 assessed: 01/01/25 Source: Developed by Drs. Cosme Engle, Lianne Burciaga, Roland Scott and colleagues, with an educational moo from [employer]. Physical exam (Primary Care) Vital Signs: Last Vital Signs Temp 97.1 F 04/21/25 08:22 Pulse 73 04/21/25 08:22 BP 112/68 04/21/25 08:22 Pulse Ox 97 04/21/25 08:22 Oxygen Delivery Method Room Air 04/21/25 08:22 BMI result Body Mass Index 29.3 Tobacco/Smoking Status: Tobacco use Status Tobacco use date assessed 04/21/25 04/21/25 08:28 Patient Tobacco Use Status Former Tobacco user 04/21/25 08:28 Tobacco use type Cigarette,Cigar 04/21/25 08:28 e-Cigarette/Vaping Use Never Used 04/21/25 08:28 Thrive Assessment: Date of Thrive Assessment Date Thrive assessed 12/29/24 04/21/25 08:28 Currently or been in a relationship where the following occur: No concerns reported Coding Assessment & Plan Assessment & Plan Orders: Orders Lipid Panel 3 Months E03.9 - Hypothyroidism, unspecified, E78.5 - Hyperlipidemia, unspecified, F32.A - Depression, unspecified, F41.9 - Anxiety disorder, unspecified, R74.8 - Abnormal levels of other serum enzymes Free T4 (Free Thyroxine) 3 Months E03.9 - Hypothyroidism, unspecified, E78.5 - Hyperlipidemia, unspecified, F32.A - Depression, unspecified, F41.9 - Anxiety disorder, unspecified, R74.8 - Abnormal levels of other serum enzymes Comprehensive [place]. Panel Fast 3 Months E03.9 - Hypothyroidism, unspecified, E78.5 - Hyperlipidemia, unspecified, F32.A - Depression, unspecified, F41.9 - Anxiety disorder, unspecified, R74.8 - Abnormal levels of other serum enzymes UA CC w/rflx Micro + Cult 3 Months E03.9 - Hypothyroidism, unspecified, E78.5 - Hyperlipidemia, unspecified, F32.A - Depression, unspecified, F41.9 - Anxiety disorder, unspecified, R74.8 - Abnormal levels of other serum enzymes Vitamin D 25-OH Total 3 Months E03.9 - Hypothyroidism, unspecified, E78.5 - Hyperlipidemia, unspecified, F32.A - Depression, unspecified, F41.9 - Anxiety disorder, unspecified, R74.8 - Abnormal levels of other serum enzymes TSH reflex Free T4 3 Months E03.9 - Hypothyroidism, unspecified, E78.5 - Hyperlipidemia, unspecified, F32.A - Depression, unspecified, F41.9 - Anxiety disorder, unspecified, R74.8 - Abnormal levels of other serum enzymes Referrals Gastroenterology Referral Z12.11 - Encounter for screening for malignant neoplasm of colon, Z12.12 - Encounter for screening for malignant neoplasm of rectum
== END 2025-04-21 08:54 | disposition home or self-care (01) ==
LOC: HO.HMCH 08:18
DX: Z00.00 Encounter for general adult medical examination without abnormal findings (principal); E78.00 Pure hypercholesterolemia, unspecified; F41.9 Anxiety disorder, unspecified; F32.A Depression, unspecified; E03.9 Hypothyroidism, unspecified; R74.8 Abnormal levels of other serum enzymes; M25.552 Pain in left hip; L65.9 Nonscarring hair loss, unspecified; Z12.11 Encounter for screening for malignant neoplasm of colon; Z12.12 Encounter for screening for malignant neoplasm of rectum; H65.193 Other acute nonsuppurative otitis media, bilateral

== ENCOUNTER 2025-06-18 07:18 | Outpatient (AMB) | payer OTHER, SELFPAY ==
--- OUTSIDE RECORDS SUMMARY | 2024-07-17 10:15 | XMS_ITS ---
Author Organization [facility] [address] Address [address] [place] [address] Care Team Providers Care Car Shagger Name Role Phone Javiermalika Rosa Unavailable [phone] LATONIA DOWLING [phone] Encounters Encounter Location Date Provider Diagnosis [facility] [address] [address] 07/17/2024 LATONIA DOWLING Plan Of Treatment No Information Progress Notes * Natalia KANDOB:1965 (59 yo F)Acc No.[id number]:07/17/2024 Progress Notes Patient: Alessia SPRAGUEberly Provider: Lauro DOWLING :1965 A ge:58 Y S ex:Female Date:07/17/2024 Address:[address] [place], [place] [id number] Subjective: * Chief Complaints: * * Medical History: Objective: * Vitals: Assessment: Plan: * Treatment: * Images: Billing Information: * Visit Code: * Procedure Codes: * Electronic signature of YADIEL DOWLING PA-C, [id number] on 06/18/2025 at 07:21 AM EDT Sign off status: Pending * Provider: Lauro DOWLING Date: 1 Generated for Jocelyne kennedy/Qasim/eTjennifer on: 0 06/18/2025 07:21 AM EDT
--- OUTSIDE RECORDS SUMMARY | 2025-02-24 04:00 | XMS_ITS ---
Author Organization [facility] Address [address] [place] [address] Care Team Providers Care Car Wash Attendant Name Role Phone Rosa Schmitt Unavailable [phone] LATONIA DOWLING Unavailable [phone] Medications Medication SIG (Take, Route, Frequency, Duration) Notes Start Date End Date Status Levothyroxine Sodium 75 MCG TAKE 1 TABLE T BY MOUTH EVERY DAY IN THE MORNING ON AN EMPTY STOMACH Oral; Duration: 90 Days Active Citalopram Hydrobromide 10 MG TAKE 1 TABLET BY MOUTH EVERY DAY Oral; Duration: 90 Days Active Atorvastatin Calcium 40 MG TAKE 1 TABLET BY MOUTH EVERY DAY Oral; Duration: 90 Days Active B-1 100 MG TAKE 1 TABLET BY MARIA EUGENIA TH EVERY DAY Oral; Duration: 90 Days Active Encounters Encounter Location Date Provider Diagnosis [facility] [address] [place] [phone] 02/24/2025 LATONIA DOWLING Assessments Encounter Date Diagnosis (ICD Code) Assessment Notes Treatment Notes Treatment Clinical Notes Section Notes 02/24/2025 Patient seen and examined. Comprehensive discussion was done on the following. # Hypothyroidism: Thyroid labs obtained in February [...] office. Continue citalopram 10 mg once daily. 1. Nutrition: It is important to follow a healthy diet based on lots of vegetables and legumes and good fat. Avoid processed food and processed carbohydrates. Prepare your own meals. Read labels and avoid high fructose corn syrup, processed chemicals added to increase shelf life and preprepared meals. Avoid fast foods. Eat slowly and plan meals for a week. Try to count calories and be mindful off daily calorie intake. Get into the habit of keeping an eye on your weight by using an appropriate scale. Learn to log exercise and discussed fitness Apps like [employer] or [employer] which can help keep log off calories taken versus calories burned. Local food should be preferred. Discussed Dirty Dozen Versus Clean Fifteen. Discussed healthy supplements like fish oil, Tumeric, Curcumin, Melatonin, Resveratrol, Probiotics, Vitamin-D, Alpha-Lipoic acid, Vitamin-D and coconut oil. 2. It is important to exercise regularly. Is a good habit to walk at least 30 minutes a day. Gentle weightlifting with standard precautions to protect the back. Finding activity like cycling or hiking and get into the habit of engaging in it. Stretching before and after the exercises important. It is also important to contact me if there are any problems like shortness of breath, chest pain, back pain and joint or muscle pain associated with the exercise. 3. Discussed age appropriate screening guidelines. Colonoscopy needs to start at age 50 with stool for occult blood as appropriate. There is a new test that can test for genetic abnormalities in the stool sample, Cologuard. This would not replace a colonoscopy but could be used as a screening tool for patients who do not want a colonoscopy. We discussed the importance of early detection of colon cancer. 4. Discussed current guidelines with respect to breast examination, mammogram and pap smear for early detection of breast and cervical cancer. Patient advised to follow up with these appointments. 5. Discussed safe driving and no use of smart phone while driving 6. Age-appropriate immunizations were discussed. A tetanus booster is needed every 10 years. Flu vaccine is recommended every year just before the start of the flu season. Shingles vaccine is recommended after age 50 but not all insurances cover it. Pneumonia vaccine is given after age 65 unless there are certain comorbidities for which it is started earlier. 7. Diagnostic labs were discussed. These could include/not limited to CBC CMP and lipids with fasting blood glucose and insulin levels. Vitamin D and hemoglobin A1c testing might be appropriate. All questions have been answered to patient's satisfaction. Patient verbalized understanding of diagnosis and treatments explained. Advised to call sooner prior to next visit it any questions/concerns arise. Case discussed with collaborating physician Oren Abdalla who reviewed the assessment and plan. Chart, medications, labs, vital signs reviewed. Dictation was accomplished with the use of [employer] voice recognition software, which is prone to medical misidentifications and grammatical errors. This are unintentional and the practitioner does try to identify and correct these, but some could still be present. Please do not hesitate to contact practitioner for clarification. Plan Of Treatment No Information Progress Notes * Annabel KANblaiseDOB:1965 (59 yo F)Acc No.[id number]:02/24/2025 CPE Patient: Natalia SPRAGUE Provider: Lauro DOWLING :1965 A ge:59 Y S ex:Female Date:02/24/2025 Address:[address] [place], [place] [id number] Subjective: * Chief Complaints: * * HPI: C onstitutional: Natalia is a 59-year-old female with history of hypothyroidism, anxiety/depression, hyperlipidemia, and right ACL tear status post PRP in May 2024 who presents for routine CPE. Medications, medical history, surgical history, allergies, hospitalizations, and changes in family history since time of last visit reviewed. Labs obtained () reveal. Labs otherwise within normal limits Specialists-- Dentist: Every 6-month cleanings Ophthalmology: Wears glasses, has regular eye care Appointments health: Other concerns addressed today: Immunizations-- Influenza: UTD, 2023 COVID: UTD, all boosters received PNA: May 2024 Shingles: First vaccine May 2024 Tetanus: UTD, 2020 Screening-- Mammogram: Screening on 09/30/2024 without evidence of suspicious mass or architectural distortion. There is a biopsy clip in the upper outer left breast, and no significant change from prior exams. Breast density category B with scattered areas of fibroglandular density. BI-RADS 2 benign with recommendation for bilateral mammogram in 1 year. Patient has strong family history of breast cancer in 2 first-degree relatives including sister and her father. Recommended that patient undergo every 6-month bilateral breast MRI without contrast for further surveillance. Bilateral breast MRI with and without contrast performed on 11/19/2024, no evidence of malignancy in bilateral breasts, BI-RADS 1 negative. Colonoscopy: Scope on 08/16/2016 which was unremarkable with 10-year repeat surveillance recommended. Scattered diverticulosis identified. No abnormal polyps identified. PAP: UTD, previously normal Social History-- ETOH Use: Socially use once per week, 1-2 drinks in typical setting Tob Use: Reports no use, former smoker, quit smoking cigarettes in 1993. Drug Use: Reports no use Caffeine Use: Coffee daily. 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 Currently is living in [place] with her . Preferred pharmacy: [facility]. * ROS: C onstitutional: Patient denies any excessive fatigue with exercise, no weight loss, no fever, no night sweats, no changes in sleep. Eyes: No eye discharge, no itching, no redness, no vision changes. Advised the significance of regular eye exams to screen for glaucoma and other eye problems. Ear nose throat: No ear pain, No sore throat, no postnasal drip, no runny nose, no sneezing, no hearing changes Cardiovascular: No chest pain, no dyspnea on exertion, no PND, no orthopnea, no irregular pulse, no palpitations, no claudication, no diaphoresis, no claudication. Respiratory: No chronic cough, no hemoptysis, no sputum, no wheezing, no SOB, no pleuritic pain. GI: No diarrhea, no constipation, no blood in the stools, no pain associated with eating, no indigestion, no difficulty swallowing, no appetite change. Genitourinary: No painful urination, no hesitancy, no blood in the urine, no incontinence, no frequency, no urgency, no abnormal discharge. Musculoskeletal: No back pain, no joint pain, no limitations to walking and running, no joint deformity, no joint stiffness, no muscle weakness Integumentary: No new skin rash. No new changes in skin moles, no pruritis, no color change. Neurological: No history of seizures, no memory loss, no language dysfunction, no inability to concentrate, no localized weakness, no sensation loss, no confusion, no dizziness, no tremor, no numbness, no tingling. Psychiatric: no anxiety, no depression, no suicidal thoughts, feels safe at home. Endocrine: No polyuria, no polyphagia, no polydipsia. No heat/cold intolerance, no excesss thirst.? Hematological: No easy bruising or bleeding, no lymph node swelling. * Medical History: * Medications: T aking Atorvastatin Calcium 40 MG Tablet TAKE 1 TABLET BY MOUTH EVERY DAY Oral , Taking Levothyroxine Sodium 75 MCG Tablet TAKE 1 TABLET BY MOUTH EVERY DAY IN THE MORNING ON AN EMPTY STOMACH Oral , Taking Citalopram Hydrobromide 10 MG Tablet TAKE 1 TABLET BY MOUTH EVERY DAY Oral , Taking B-1 100 MG Tablet TAKE 1 TABLET BY MOUTH EVERY DAY Oral Objective: * Vitals: * Physical Examination: G eneral: Age appropriate 59-year-old female, well appearing, no acute distress, speaking in full sentences without respiratory compromise. Well groomed, well developed. Alert, Interactive. Skin: Warm, dry and intact. No lesions/rashes/erythema. HEENT: Normocephalic/atraumatic. EOMI intact. PERRLA. Vision intact. No ptosis or lid lag. Nares without discharge or inflammation. Oral cavity free of plaques or exudates. Dentition well maintained. No pharyngeal erythema. Ear canal without cerumen or discharge. Tympanic membrane visualized including bony structures and cone of light. Neck/Thyroid: Supple, with no lymphadenopathy. Full ROM. No carotid artery bruits auscultated. Thyroid free of nodules and nonenlarged. Lung: Clear to auscultation bilaterally, no wheezes, rales or rhonchi. No barrel chest. Equal chest rise and fall bilaterally. Cardiac: S1 and S2 appreciated. No murmurs/rubs or gallops. DP pulses intact 2+ bilaterally. Capillary refill 2 seconds. Abdomen: Soft, nontender, normoactive bowel sounds. No rebound/guarding. No CVA tenderness. No Masses. Extremities: Bilateral lower extremities with no edema or rubor. No evidence of varicose veins. Equal tone bilaterally. MSK: Bilateral upper and lower extremities 5/5 strength with flexion/extension. Fish Roe Processor strength 5/5. Sensation intact. Neuro: CN II-XI grossly intact. Steady gait with ambulation observed. Symmetric reflexes. Psych: Stable mood and affect. Assessment: * Assessment: Patient seen and examined. C omprehensive discussion was done on the following. # Hypothyroidism: Thyroid labs obtained in February [...] office. Continue citalopram 10 mg once daily. 1. Nutrition: It is important to follow a healthy diet based on lots of vegetables and legumes and good fat. Avoid processed food and processed carbohydrates. Prepare your own meals. Read labels and avoid high fructose corn syrup, processed chemicals added to increase shelf life and preprepared meals. Avoid fast foods. Eat slowly and plan meals for a week. Try to count calories and be mindful off daily calorie intake. Get into the habit of keeping an eye on your weight by using an appropriate scale. Learn to log exercise and discussed fitness Apps like [employer] or Cronometer which can help keep log off calories taken versus calories burned. Local food should be preferred. Discussed Dirty Dozen Versus Clean Fifteen. Discussed healthy supplements like fish oil, Tumeric, Curcumin, Melatonin, Resveratrol, Probiotics, Vitamin-D, Alpha-Lipoic acid, Vitamin-D and coconut oil. 2. It is important to exercise regularly. Is a good habit to walk at least 30 minutes a day. Gentle weightlifting with standard precautions to protect the back. Finding activity like cycling or hiking and get into the habit of engaging in it. Stretching before and after the exercises important. It is also important to contact me if there are any problems like shortness of breath, chest pain, back pain and joint or muscle pain associated with the exercise. 3. Discussed age appropriate screening guidelines. Colonoscopy needs to start at age 50 with stool for occult blood as appropriate. There is a new test that can test for genetic abnormalities in the stool sample, Cologuard. This would not replace a colonoscopy but could be used as a screening tool for patients who do not want a colonoscopy. We discussed the importance of early detection of colon cancer. 4. Discussed current guidelines with respect to breast examination, mammogram and pap smear for early detection of breast and cervical cancer. Patient advised to follow up with these appointments. 5. Discussed safe driving and no use of smart phone while driving 6. Age-appropriate immunizations were discussed. A tetanus booster is needed every 10 years. Flu vaccine is recommended every year just before the start of the flu season. Shingles vaccine is recommended after age 50 but not all insurances cover it. Pneumonia vaccine is given after age 65 unless there are certain comorbidities for which it is started earlier. 7. Diagnostic labs were discussed. These could include/not limited to CBC CMP and lipids with fasting blood glucose and insulin levels. Vitamin D and hemoglobin A1c testing might be appropriate. All questions have been answered to patient's satisfaction. Patient verbalized understanding of diagnosis and treatments explained. Advised to call sooner prior to next visit it any questions/concerns arise. Case discussed with collaborating physician Oren Abdalla who reviewed the assessment and plan. Chart, medications, labs, vital signs reviewed. Dictation was accomplished with the use of [employer] voice recognition software, which is prone to medical misidentifications and grammatical errors. This are unintentional and the practitioner does try to identify and correct these, but some could still be present. Please do not hesitate to contact practitioner for clarification. Plan: * Treatment: * Procedure Codes: 9 9199 NO SHOW OFFICE VISIT * Images: Billing Information: * Visit Code: * Procedure Codes: 26568 NO SHOW OFFICE VISIT. Care Plan Details* * Electronic signature of YADIEL DOWLING PA-C, [id number] on 06/18/2025 at 07:21 AM EDT Sign off status: Pending * Provider: Lauro DOWLING Date: 0 02/24/2025 Generated for Jocelyne kennedy/Qasim/Ang on: 0 06/18/2025 07:21 AM EDT History and Physical Notes * HPI (History of Present Illness) Category Sub-Category Detail Notes Category Not es Constitutional Natalia is a 59-year-old female with history of hypothyroidism, anxiety/depression, hyperlipidemia, and right ACL tear status post PRP in May 2024 who presents for routine CPE. Medications, medical history, surgical history, allergies, hospitalizations, and changes in family history since time of last visit reviewed. Labs obtained () reveal. Labs otherwise within normal limits Specialists-- Dentist: Every 6-month cleanings Ophthalmology: Wears glasses, has regular eye care Appointments health: Other concerns addressed today: Immunizations-- Influenza: UTD, 2023 COVID: UTD, all boosters received PNA: May 2024 Shingles: First vaccine May 2024 Tetanus: UTD, 2020 Screening-- Mammogram: Screening on 09/30/2024 without evidence of suspicious mass or architectural distortion. There is a biopsy clip in the upper outer left breast, and no significant change from prior exams. Breast density category B with scattered areas of fibroglandular density. BI-RADS 2 benign with recommendation for bilateral mammogram in 1 year. Patient has strong family history of breast cancer in 2 first-degree relatives including sister and her father. Recommended that patient undergo every 6-month bilateral breast MRI without contrast for further surveillance. Bilateral breast MRI with and without contrast performed on 11/19/2024, no evidence of malignancy in bilateral breasts, BI-RADS 1 negative. Colonoscopy: Scope on 08/16/2016 which was unremarkable with 10-year repeat surveillance recommended. Scattered diverticulosis identified. No abnormal polyps identified. PAP: UTD, previously normal Social History-- ETOH Use: Socially use once per week, 1-2 drinks in typical setting Tob Use: Reports no use, former smoker, quit smoking cigarettes in 1993. Drug Use: Reports no use Caffeine Use: Coffee daily. 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 Currently is living in [place] with her . Preferred pharmacy: [facility]. Physical Examination Category Sub-Category Detail Notes Section Note s General: Age appropriate 59-year-old female, well appearing, no acute distress, speaking in full sentences without respiratory compromise. Well groomed, well developed. Alert, Interactive. Skin: Warm, dry and intact. No lesions/rashes/erythema. HEENT: Normocephalic/atraumatic. EOMI intact. PERRLA. Vision intact. No ptosis or lid lag. Nares without discharge or inflammation. Oral cavity free of plaques or exudates. Dentition well maintained. No pharyngeal erythema. Ear canal without cerumen or discharge. Tympanic membrane visualized including bony structures and cone of light. Neck/Thyroid: Supple, with no lymphadenopathy. Full ROM. No carotid artery bruits auscultated. Thyroid free of nodules and nonenlarged. Lung: Clear to auscultation bilaterally, no wheezes, rales or rhonchi. No barrel chest. Equal chest rise and fall bilaterally. Cardiac: S1 and S2 appreciated. No murmurs/rubs or gallops. DP pulses intact 2+ bilaterally. Capillary refill 2 seconds. Abdomen: Soft, nontender, normoactive bowel sounds. No rebound/guarding. No CVA tenderness. No Masses. Extremities: Bilateral lower extremities with no edema or rubor. No evidence of varicose veins. Equal tone bilaterally. MSK: Bilateral upper and lower extremities 5/5 strength with flexion/extension. Fish Roe Processor strength 5/5. Sensation intact. Neuro: CN II-XI grossly intact. Steady gait with ambulation observed. Symmetric reflexes. Psych: Stable mood and affect
--- OUTSIDE RECORDS SUMMARY | 2025-03-25 04:15 | XMS_ITS ---
Author Organization [facility] [address] Address [address] [place] [address] Care Team Providers Care Motors Assembler Name Role Phone Keshia Rosa Unavailable [phone] LATONIA DOWLING Unavailable [phone] Encounters Encounter Location Date Provider Diagnosis [facility] [address] [address] 03/25/2025 LATONIA DOWLING Plan Of Treatment No Information Progress Notes * Natalia KANDOB:1965 (59 yo F)Acc No.[id number]:03/25/2025 CPE Patient: Natalia SPRAGUE Provider: Lauro DOWLING :1965 A ge:59 Y S ex:Female Date:03/25/2025 Address:[address] [place], [place] [phone] Subjective: * Chief Complaints: * * Medical History: Objective: * Vitals: Assessment: Plan: * Treatment: * Images: Billing Information: * Visit Code: * Procedure Codes: Care Plan Details* * Electronic signature of YADIEL DOWLING PA-C, [id number] on 06/18/2025 at 07:21 AM EDT Sign off status: Pending * Provider: aLuro DOWLING Date: 03/25/2025 Generated for Jocelyne kennedy/Qasim/eTjennifer on: 06/18/2025 07:21 AM EDT
--- OUTSIDE RECORDS SUMMARY | 2025-06-18 07:21 | XMS_ITS | Clinical Summary ---
Author Organization [facility] Address [address] [place] [address] Care Team Providers Care Urban Gardening Specialist Name Role Phone Concepcion Fall MD Primary Care Provider [phone] Allergies No known active allergies Medications Medication [...] 64 08/18/2021 8:45 AM EST Temperature 36.4 C (97.6 F) 08/18/2021 8:45 AM EST Respiratory Rate 15 08/18/2021 8:45 AM EST [...] 09/22/2023, 08/26, 2021, Additional history exists INFLUENZA (#1) 2025 06/18/2020, 04/27, 05/24/2017, Additional history exists CHOLESTEROL SCREENING 06/11/2025 06/11/2020 , 06/26/2018, 12/21/2012, Additional history exists CERVICAL CANCER SCREENING 06/09/20262020, 12/04/2015, 05/17/2013, Additional history exists COLON CANCER SCREENING 08/16/2026 08/16/2016 PNEUMOCOCCAL VACCINE FOR HIG H RISK PATIENTS (#1) 2030 03/23/2010 HEPATITIS C SCREENING Completed 09/20/2013 Care Teams Urban Gardening Specialist Relationship Specialty Start Date End Date Concepcion Fall MD [address] [place] [address] [id number] PCP - General 04/13/10
--- OUTSIDE RECORDS SUMMARY | 2025-06-18 07:21 | XMS_ITS | Encounter Summary ---
Author Organization [facility] Address [address] [place] [address] Care Team Providers Care Cashier Credit Name Role Phone Concepcion Fall MD Primary Care Provider Encounter Details Date Type Department Care Team Description 04/15/2015 Release of Information Medical Records [address] [place] [address] Abstract, Provider Social History Tobacco Use Types [...] on filedocumented in this encounter Care Teams Cashier Credit Relationship Specialty Start Date End Date Concepcion Fall MD [address] [place] [address] PCP - General 04/13/10 documented as of this encounter
--- OUTSIDE RECORDS SUMMARY | 2025-06-18 07:21 | XMS_ITS | Encounter Summary ---
Author Organization [facility] Address [address] [place] [address] Care Team Providers Care Software Project Engineer Name Role Phone Concepcion Fall MD Primary Care Provider [phone] Encounter Details Date Type Department Care Team Description 09/02/2014 Pt. Non Urgent Medic al Question OBGYN - [place] [address] [place] [address] jA Wilkes MD Social History Tobacco Use [...] on filedocumented in this encounter Care Teams Software Project Engineer Relationship Specialty Start Date End Date Concepcion Fall MD [address] [place] [address] PCP - General 04/13/10 documented as of this encounter
--- OUTSIDE RECORDS SUMMARY | 2025-06-18 07:21 | XMS_ITS | Clinical Summary ---
Author Organization [address] Address [address] [place] [phone] Phone Care Team Providers Care Microstrategy Architect Developer Name Role Phone Concepcion Fall MD [...] CORE W/IMAG GUID ENDOMETRIAL ABLATION 01/08/16 PROCEDURE: HI ENDOMETRIAL ABLTJ THERMAL W/O HYSTEROSCOPIC GUID; COMMENT: [...] 2025 , 06/16/2023, 06/21/2022, Additional history exists Cervical Cancer Screening: HPV 06/09/2026 06/09/2021 Colorectal [...] for breast cancer HM HPV Routine 06/09/2021 COLONOSCOPY Routine 08/16/2016 HEPATITIS C SCREENING Routine [...] is recommended in 1 year. Mammo Location: [facility], [address] [place] [address], [address], . -------- FINAL REPORT -------- Dictated By: Anita Munoz Dictated Date: 09/30/2024 12:44 ET Assigned Physician: Anita Munoz Reviewed and Electronically Signed By: Anita Munoz Signed Date: 09/30/2024 12:47 ET Workstation ID: [id number] Transcribed By: Self Edit Transcribed Date: 09/30/2024 [...] is recommended in 1 year. Mammo Location: [facility], [address] [place] [address], [address], . -------- FINAL REPORT -------- Dictated By: Anita Munoz Dictated Date: 09/30/2024 12:44 ET Assigned Physician: Anita Munoz Reviewed and Electronically Signed By: Anita Munoz Signed Date: 09/30/2024 12:47 ET Workstation ID: [id number] Transcribed By: Self Edit Transcribed Date: 09/30/2024 12:44 ET Osiris Gutierrez NP IMG BI PROCEDURES Final Resul t * Cervical Cancer Screening: HPV (06/09/2021) [facility] Cervical Cancer Screening: HPV negative,a bstracted [facility] Provider HEALTH MAINTENANCE Final Result * Colonoscopy (08/16/2016) [facility] Colonoscopy no interpretation , abstracted Anatomical Region Laterality Modality Other [facility] Provider HEALTH MAINTENANCE Final Result * Hepatitis C Screening (09/20/2013) [facility] Hepatitis C Screening ABSTRACTED [facility] Provider HEALTH MAINTENANCE Final Result from Last 3 Months or Most Recently Relevant to Health Maintenance Insurance [facility] Care Teams Microstrategy Architect Developer Relationship Specialty Start Date End Date Concepcion Fall MD [address] [place] [id number] PCP - General 04/13/10
--- OUTSIDE RECORDS SUMMARY | 2025-06-18 07:21 | XMS_ITS | Clinical Summary ---
Author Organization [facility] Address [address] [place] [address] Care Team Providers Care Salesperson Parts Name Role Phone Concepcion Fall MD Primary Care Provider [phone] Allergies No known active allergies Medications Medication [...] age to complete this topic Care Teams Salesperson Parts Relationship Specialty Start Date End Date Concepcino Fall MD PCP - General Internal Medicine 08/26/19
--- OUTSIDE RECORDS SUMMARY | 2025-06-18 07:21 | XMS_ITS | Encounter Summary ---
Author Organization [facility] Address [address] [place] [address] Care Team Providers Care Embalmer Apprentice Name Role Phone Concepcion Fall MD Primary Care Provider [phone] Encounter Details Date Type Department Care Team Description 12/23/2015 Refill OBGYN - [place] [address] [place] [address] Beena Barraza CNM Social History Tobacco Use [...] MG tablet [Beena Barraza CNM] Preferred pharmacy: [facility] Comment: Medication renewals requested in this message routed to other providers: levothyroxine (SYNTHROID, LEVOTHROID) 25 MCG tablet [Concepcion Fall MD] documented in this encounter Plan of Treatment Not on file documented as of this encounter Visit Diagnoses Not on filedocumented in this encounter Care Teams Embalmer Apprentice Relationship Specialty Start Date End Date Concepcion Fall MD [address] [place] [address] PCP - General 04/13/10 documented as of this encounter
--- OUTSIDE RECORDS SUMMARY | 2025-06-18 07:21 | XMS_ITS | Encounter Summary ---
Author Organization [facility] Address [address] [place] [address] Care Team Providers Care Cold Mill Inspector Name Role Phone Concepcion Fall MD Primary Care Provider [phone] Encounter Details Date Type Department Care Team Description 08/28/2015 Release of Information Medical Records [address] [place] [address] Abstract, Provider Social History Tobacco Use Types [...] on filedocumented in this encounter Care Teams Cold Mill Inspector Relationship Specialty Start Date End Date Concepcion Fall MD [address] [place] [address] PCP - General 04/13/10 documented as of this encounter
--- OUTSIDE RECORDS SUMMARY | 2025-06-18 07:21 | XMS_ITS | Encounter Summary ---
Author Organization [facility] Address [address] [place] [address] Care Team Providers Care Mask Inspector Name Role Phone Concepcion Fall MD Primary Care Provider [phone] Encounter Details Date Type Department Care Team Description 07/15/2019 Tool Polisher Report Medical Records [address] [place] [address] Abstract, Provider Social History Tobacco Use Types [...] on filedocumented in this encounter Care Teams Mask Inspector Relationship Specialty Start Date End Date Concepcion Fall MD [address] [place] [address] PCP - General 04/13/10 documented as of this encounter
--- OUTSIDE RECORDS SUMMARY | 2025-06-18 07:21 | XMS_ITS | Encounter Summary ---
Author Organization [facility] Address [address] [place] [address] Care Team Providers Care Rubber And Pounder Name Role Phone Concepcion Fall MD Primary Care Provider Gena Crespo MD Primary Care Provider Unavailable Encounter Details Date Type Department Care Team Description 04/02/2010 Hospital Medical Records [address] [place] [address] Amada Calhoun Social History Tobacco Use Types Packs/Day Years [...] on filedocumented in this encounter Care Teams Rubber And Pounder Relationship Specialty Start Date End Date Concepcion Fall MD [address] [place] [address] PCP - General 04/13/10 Gena Crespo MD PCP - General 02/28/0604/12 documented as of this encounter
--- OUTSIDE RECORDS SUMMARY | 2025-06-18 07:21 | XMS_ITS | Encounter Summary ---
Author Organization [facility] Address [address] [place] [address] Care Team Providers Care Sql Ssrs Ssis Developer Name Role Phone Concepcion Fall MD Primary Care Provider [phone] Encounter Details Date Type Department Care Team Description 07/29/2019 Orders Only Medical Records [address] [place] [address] Abstract, Provider Social History Tobacco Use Types [...] on filedocumented in this encounter Care Teams Sql Ssrs Ssis Developer Relationship Specialty Start Date End Date Concepcion Fall MD [address] [place] [address] PCP - General 04/13/10 documented as of this encounter
--- OUTSIDE RECORDS SUMMARY | 2025-06-18 07:21 | XMS_ITS | Encounter Summary ---
Author Organization [facility] Address [address] [place] [address] Care Team Providers Care Coal Pulverizer Operator Name Role Phone Concepcion Fall MD Primary Care Provider [phone] Reason for Visit * Reason Comments E-prescribe Rx Request Encounter Details Date Type Department Care Team Description 10/12/2018 [place] [facility] [address] [place] [address] Concepcion Fall MD [address] [place] [address] [phone] E-prescribe Rx Request Social History Tobacco Use [...] QUAN SELF FUNDED / Plan: HMO $20 [place] / Product Type: HMO Kam-pcp-Giiwncn documented in this encounter Plan of Treatment Not on file documented as of this encounter Visit Diagnoses Not on filedocumented in this encounter Care Teams Coal Pulverizer Operator Relationship Specialty Start Date End Date Concepcion Fall MD [address] [place] [address] PCP - General 04/13/10 documented as of this encounter
--- OUTSIDE RECORDS SUMMARY | 2025-06-18 07:21 | XMS_ITS | Encounter Summary ---
Author Organization [facility] Address [address] [place] [address] Care Team Providers Care Demolition Engineer Name Role Phone Concepcion Fall MD Primary Care Provider [phone] Encounter Details Date Type Department Care Team Description 08/07/2019 Pocket And Pulley Machine Operator Report Medical Records [address] [place] [address] Armani Diego Social History Tobacco Use Types [...] on filedocumented in this encounter Care Teams Demolition Engineer Relationship Specialty Start Date End Date Concepcion Fall MD [address] [place] [address] PCP - General 04/13/10 documented as of this encounter
--- OUTSIDE RECORDS SUMMARY | 2025-06-18 07:21 | XMS_ITS | Patient Health Record ---
Author Organization [facility] Address [address] [place] [address] Care Team Providers Care Automobile Technician Name Role Phone Rosa Schmitt Unavailable [phone] LATONIA DOWLING Unavailable [phone] Allergies No Known Allergies Results Component Value Reference Range Notes MR BREAST WO AND W CONTRAST BILAT Reviewed date:11/27/2024 01:13:25 PM Interpretation: Performing Lab: Notes/Report: Note See Note [facility], a member of [employer] Patient Name: TRISH KAN Date of : 1965 Reason for Exam: malignant neoplasm of breast Exam Date: 11/19/2024 [id number] EST Report Status: Final Ordering Provider: LATONIA [...] Signed Date: 025 11:02 ET Workstation ID: [id number] Transcribed By: Self Edit Transcribed Date: 11/23/2024 10:56 ET Reason For Referral Reason Cervical cancer scre ening Diagnosis 1 Pap smear for cervic al cancer screening (Z12.4) Referral Organization [facility] [address] Referring Provider First Name LATONIA Referring Provider [...] EVERY DAY Oral; Duration: 90 Days Active Problems Problem Type SNOMED Code ICD Code Onset Dates Problem Status W/U Status Risk Notes Problem Mixed hyperlipidemia (242038123) Mixed hyperlipidemia (E78.2) Active confirmed Problem Acquired hypothyroidism (777410830) Acquired hypothyroidism (E03.9) Active confirmed Problem Mixed anxiety and depressive disorder (576264592) Depression with anxiety (F41.8) Active confirmed Vital Signs Heart Rate 86 /min 10/31/2024 Oximetry 97 % 10/31/2024 Blood pressure diastolic 78 mm Hg 10/31/2024 Height 62 in 10/31/2024 Blood pressure systolic 122 mm Hg 10/31/2024 Weight 148 lbs 10/31/2024 BMI 27.07 kg/m2 10/31/2024 Encounters Encounter Location Date Provider Diagnosis [facility] [address] [place] [phone] 10/31/2024 LATONIA DOWLING Mixed hyperlipidemia E78.2 ; Acquired hypothyroidism E03.9 ; Depression with anxiety F41.8 and Family history of breast cancer Z80.3 [facility] [address] [facility] [address] [place] [address] 10/31/2024 LATONIA DOWLING [facility] [address] [facility] [address] [place] [address] 11/01/2024 LATONIA DOWLING Family history of br east cancer Z80.3 [facility] [address] [facility] [address] [place] [address] 11/13/2024 LATONIA DOWLING [facility] [address] [address] 11/25/2024 LATONIA DOWLING Assessments Encounter Date Diagnosis (ICD Code) Assessment Notes Treatment Notes Treatment Clinical Notes Section Notes 11/01/2024 Family history of breast cancer (ICD-10 - Z80.3) 10/31/2024 Mixed hyperlipidemia (ICD-10 - E78.2) Trish is a 59-year-old female who presents to the office today for new patient evaluation. Patient is welcomed to the practice. They are coming from [facility]. Last complete physical exam with labs February [...] Dictation was accomplished with the use of kaleo voice recognition software, which is prone to [...] to the practice. They are coming from [facility]. Last complete physical exam with labs February [...] Dictation was accomplished with the use of kaleo voice recognition software, which is prone to medical misidentifications and grammatical errors. This are unintentional and the practitioner does try to identify and correct these, but some could still be present. Please do not hesitate to contact practitioner for clarification. 10/31/2024 Depression with anxiety (ICD-10 - F41.8) Trish is a 59-year-old female who presents to the office today for new patient evaluation. Patient is welcomed to the practice. They are coming from [facility]. Last complete physical exam with labs February [...] Dictation was accomplished with the use of kaleo voice recognition software, which is prone to [...] to the practice. They are coming from [facility]. Last complete physical exam with labs February [...] Dictation was accomplished with the use of kaleo voice recognition software, which is prone to medical misidentifications and grammatical errors. This are unintentional and the practitioner does try to identify and correct these, but some could still be present. Please do not hesitate to contact practitioner for clarification. 02/24/2025 Patient seen and examined. Comprehensive discussion [...] log exercise and discussed fitness Apps like [employer] or [employer] which can help keep log off calories [...] Dictation was accomplished with the use of kaleo voice recognition software, which is prone to medical misidentifications and grammatical errors. This are unintentional and the practitioner does try to identify and correct these, but some could still be present. Please do not hesitate to contact practitioner for clarification. Plan Of Treatment Pending Test Test Name Order Date MRI Breast w and w/o Contrast bilat 03/2025 MRI Breast w/o Contrast bilat 10/31/2024 Insurance Providers Payer Name Payer Address Payer Phone Subscriber Number Group Number Insured Name Patient Relationship to Insured Coverage Start Date Coverage End Date [facility] [address] [place] [address] [id number] Trish Kan Self - patient is the insured 4 Medical (General) History Medical History History ICD Code thyroid disease anxiety depression hearing loss
--- OUTSIDE RECORDS SUMMARY | 2025-06-18 07:21 | XMS_ITS | Encounter Summary ---
Author Organization [facility] Address [address] [place] [address] Care Team Providers Care Riveter Automobile Brakes Name Role Phone Concepcion Fall MD Primary Care Provider [phone] Reason for Visit * Reason Comments E-prescribe Rx Request Encounter Details Date Type Department Care Team Description 2015 Refill OBGYN - [place] [address] [place] [address] Aj Wilkes MD E-prescribe Rx Request Social History Tobacco Use [...] encounter Miscellaneous Notes * Telephone Encounter - Ramona Rajput MD - 09/10/2015 3:58 PM EST Ok to fill * Telephone Encounter - Ruth Soria L.P.N. - 09/10/2015 3:13 PM EST Appointment 10/05/[address] Wilkes. JLK * Telephone Encounter - Kathy Werner - 09/10/2015 2:50 PM EST Patient has scheduled her exam * Telephone Encounter - Kathy Werner - 2015 2:15 PM EST Left message to schedule ag documented in this encounter Plan of Treatment Not on file documented as of this encounter Visit Diagnoses Not on filedocumented in this encounter Care Teams Riveter Automobile Brakes Relationship Specialty Start Date End Date Concepcion Fall MD [address] [place] [address] PCP - General 04/13/10 documented as of this encounter
--- OUTSIDE RECORDS SUMMARY | 2025-06-18 07:21 | XMS_ITS | Encounter Summary ---
Author Organization [facility] Address [address] [place] [address] Care Team Providers Care Manufacturing Cost Estimator Name Role Phone Concepcion Fall MD Primary Care Provider [phone] Reason for Visit * Reason Onset Date Comments Appointment-Internal Referral 06/08/2021 Encounter Details Date Type Department Care Team Description 06/08/2021 Telephone OBGYN - [place] [address] [place] [phone] Rosa Duron MD [address] [place] [address] [phone] Appointment-Internal Referral Social History Tobacco Use Types [...] patient. Specialty patient is being referred to: resp ther Name of Specialist patient is seeing: Rosa Duron Reason/diagnosis for visit: annual exam Date of appoinment: 06/09/21 If retro, date referral needs to start: Concepcion Fall Payor: [employer] [facility] [employer] / Plan: [facility] F 1+/$20 / Product Type: HMO Ltt-ont-Dtqzhec documented in this encounter Plan of Treatment Not on file documented as of this encounter Visit Diagnoses Not on filedocumented in this encounter Care Teams Manufacturing Cost Estimator Relationship Specialty Start Date End Date Concepcion Fall MD [address] [place] [id number] PCP - General 04/13/10 documented as of this encounter
--- NOTE | 2025-06-18 07:26 | A.OFFVIS_ITS ---
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 No complaints. Last Pap/HPV was few years ago at [facility], no history of abnormal Pap smear Last Mammogram was in 10/19 negative according to patient, no records available, the patient has strong history of breast cancer with her sister and her father, has high lifetime breast cancer risk BRCA testing was negative, last breast MRI was in 03/19 negative according to the patient, no records available The patient is scheduled for preop Colonoscopy in few months [facility] Medical History Acute otitis media with effusion of both ears Hypothyroidism Tear of meniscus of right knee Anxiety Depression CVA (cerebral vascular accident) Surgical History Hx of breast biopsy History of endometrial ablation Family History Father Breast cancer Diabetes Stroke Mother Glaucoma Dementia Atrial fibrillation Son No problems noted. Daughter No problems noted. 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 Cognitive needs: No Hearing needs: No Vision needs: Yes (Contact lenses) Female Reproductive History Menstrual Total pregnancies: 3 Full term: 2 Number of Living Children: 2 Review of Systems Const All systems reviewed & are unremarkable except as noted in HPI and below Card Reports as per HPI Resp Reports as per HPI GI Reports as per HPI and Reports no additional complaints Reports as per HPI Physical Exam Vital Signs: Last Vital Signs BP 114/64 06/18/25 07:28 BMI result Body Mass Index 29.8 Const General: cooperative, healthy appearing and comfortable Chest Chest palpation & inspection: normal inspection of the chest and normal palpation of entire chest wall Breast/axilla inspection: normal inspection of the breasts and normal inspection of the axillae Breast/axilla palpation: normal palpation of the breasts, normal palpation of the axillae and no axillary lymphadenopathy Resp Effort & Inspection: normal respiratory effort Auscultation: clear to auscultation bilaterally Percussion: percussion normal Cardio Palpation: normal PMI Rate: regular rate Rhythm: regular rhythm Heart sounds: no murmurs and no rubs Peripheral pulses: Peripheral pulses 2+ throughout GI Inspection: Yes normal to inspection Palpation (GI): Soft to palpation, nontender, no guarding, not rigid and No hepatosplenomegaly present Percussion: Yes normal to percussion Auscultation: normal bowel sounds Rectal Exam - Female: deferred General: Yes bladder normal to palpation External Female Exam: No lesion Speculum Exam - Vagina: normal appearance of the vagina, normal palpation, normal vaginal discharge and not erythematous Speculum Exam - Cervix: normal appearance of the cervix and normal palpation Bimanual exam- vagina & uterus: normal bimanual exam, normal palpation, uterine size normal, bladder normal to palpation, consistency normal and normal palpation Bimanual Exam- Adnexa, other: normal adnexae, no masses and no tenderness Assessment & Plan Assessment & Plan (1) Well woman exam: Code(s): Z01.419 - Encounter for gynecological examination (general) (routine) without abnormal findings Category: Medical Plan: Cotesting done. Instructions given to patient to schedule next screening Mammogram in 10/19 Counseled the patient about the recommended dietary allowance of 1000 mg of Calcium & 600 IU of vitamin D. The patient was instructed to perform monthly self-breast exams and to schedule an annual exam in a year; All questions answered and the patient verbalized understanding. Instructed the patient to schedule annual exam in a year (2) At high risk for breast cancer: Code(s): Z91.89 - Other specified personal risk factors, not elsewhere classified Category: Medical Plan: Discussed with the patient her increased risk for Breast ca Recommended Intensification of breast Cancer screening with annual MRI breast in addition to annual mammogram and MRI alternating every 6 months. Will refer to Dr Leggett for further management Instructed the patient to call our office back in case a referral appointment is not scheduled, missed or canceled so that we will assist on rescheduling another appointment, the patient verbalized understanding agreed with the plan. Orders: Orders HPV High risk Today Z01.419 - Encounter for gynecological examination (general) (routine) without abnormal findings Pap Smear Today Z01.419 - Encounter for gynecological examination (general) (routine) without abnormal findings Referrals General Surgery Referral Z91.89 - Other specified personal risk factors, not elsewhere classified Coding Level of Care Code New Pt Prev Care 40-64y(30358) Diagnoses Well woman exam Z01.419 At high risk for breast cancer Z91.89
[2025-06-18 07:28] VITALS: BP 114/64; BMI 29.8
== END 2025-06-18 07:46 | disposition home or self-care (01) ==
LOC: HO.HWS 07:19
PROVIDERS: Visit Provider Obstetrics & Gynecology
DX: Z01.419 Encounter for gynecological examination (general) (routine) without abnormal findings (principal); Z91.89 Other specified personal risk factors, not elsewhere classified
CPT/HCPCS: 99386; 99459

== ENCOUNTER 2025-06-18 07:18 | Outpatient (REF) | payer OTHER, SELFPAY | END 2025-06-18 07:19 | disposition home or self-care (01) | LOC: HO.LNP 07:18 | PROVIDERS: Visit Provider Obstetrics & Gynecology | DX: Z01.419 Encounter for gynecological examination (general) (routine) without abnormal findings (principal); Z11.51 Encounter for screening for human papillomavirus (HPV); Z91.89 Other specified personal risk factors, not elsewhere classified | CPT/HCPCS: 87626; 88175 ==

== ENCOUNTER 2025-09-12 07:49 | Outpatient (AMB) | payer OTHER, SELFPAY ==
--- OUTSIDE RECORDS SUMMARY | 2025-03-25 03:15 | XMS_ITS ---
Author Organization [facility] [address] Address [address] [place] [address] Care Team Providers Care Size Maker Name Role Phone Rosa Schmitt Unavailable [phone] LATONIA DOWLING Unavailable [phone] Encounters Encounter Location Date Provider Diagnosis [facility] [address] [address] 03/25/2025 LATONIA DOWLING Plan Of Treatment No Information Progress Notes * Natalia KANDOB:1965 (60 yo F)Acc No.[id number]:03/25/2025 CPE Patient: Natalia Kowalski Provider: Lauro DOWLING :1965 A ge:59 Y S ex:Female Date:03/25/2025 Address:[address] [place], [place] [id number] Care Plan Details* * Electronic signature of YADIEL DOWLING PA-C, [id number] on 09/12/2025 at 07:52 AM EST Sign off status: Pending * Provider: Lauro DOWLING Date: 0 03/25/2025 Generated for Jocelyne kennedy/Fabritton/eTransmitting on: 1 11/13/2024 07:52 AM EST
--- OUTSIDE RECORDS SUMMARY | 2025-09-12 07:52 | XMS_ITS | Patient Health Record ---
Author Organization [facility] Address [address] [place] [address] Care Team Providers Care Possum Trapper Name Role Phone Rosa Schmitt Unavailable [phone] LATONIA DOWLING Unavailable [phone] Allergies No Known Allergies Results Component Value Reference Range Notes MR BREAST WO AND W CONTRAST BILAT Reviewed date:11/27/2024 01:13:25 PM Interpretation: Performing Lab: Notes/Report: Note See Note [facility], a member of [employer] Patient Name: TRISH KAN Date of : 1965 Reason for Exam: malignant neoplasm of breast Exam Date: 11/19/2024 [id number] EST Report Status: Final Ordering Provider: LATONIA [...] Signed Date: 025 11:02 ET Workstation ID: [id number] Transcribed By: Self Edit Transcribed Date: 11/23/2024 10:56 ET Reason For Referral Reason Cervical cancer scre ening Diagnosis 1 Pap smear for cervic al cancer screening (Z12.4) Referral Organization [facility] [address] Referring Provider First Name LATONIA Referring Provider Last Name JOSEY Referring Provider Speciality Internal M edicine Referred Provider Specialty OB - Gynecol ogy Clinical Notes Roxana Orourke 2024 10:19:56 AM >Referral printed and mailed to pt home. TY. Referral Priority Routine Medications Medication SIG (Take, Route, Frequency, Duration) Notes Start Date End Date Status Levothyroxine Sodium 75 MCG Tablet TAKE 1 TABLET BY MOUTH EVERY DAY IN THE MORNING ON AN EMPTY STOMACH Oral; Duration: 90 Days Active Citalopram Hydrobromide 10 MG Tablet TAKE 1 TABLET BY MOUTH EVERY DAY Oral; Duration: 90 Days Active Atorvastatin Calcium 40 MG Tablet TAKE 1 TABLET BY MOUTH EVERY DAY Oral; Duration: 90 Days Active B-1 100 MG Tablet TAKE 1 TABLET BY MARIA EUGENIA TH EVERY DAY Oral; Duration: 90 Days Active Social History Section Notes: social drinker Problems Problem Type SNOMED Code ICD Code Onset Dates Problem Status W/U Status Risk Notes Problem Mixed hyperlipidemia (020220445) Mixed hyperlipidemia (E78.2) Active confirmed Problem Acquired hypothyroidism (027509770) Acquired hypothyroidism (E03.9) Active confirmed Problem Mixed anxiety and depressive disorder (319700623) Depression with anxiety (F41.8) Active confirmed Vital Signs Heart Rate 86 /min 10/31/2024 Oximetry 97 % 10/31/2024 Blood pressure diastolic 78 mm Hg 10/31/2024 Height 62 in 10/31/2024 Blood pressure systolic 122 mm Hg 10/31/2024 Weight 148 lbs 10/31/2024 BMI 27.07 kg/m2 10/31/2024 Encounters Encounter Location Date Provider Diagnosis [facility] [address] [place] [phone] 10/31/2024 LATONIA DOWLING Mixed hyperlipidemia E78.2 ; Acquired hypothyroidism E03.9 ; Depression with anxiety F41.8 and Family history of breast cancer Z80.3 [facility] [address] [facility] [address] [place] [address] 10/31/2024 LATONIA DOWLING [facility] [address] [facility] [address] [place] [address] 11/01/2024 LATONIA DOWLING Family history of br east cancer Z80.3 [facility] [address] [facility] [address] [place] [address] 11/13/2024 LATONIA DOWLING [facility] [address] [facility] [address] [place] [address] 11/25/2024 LATONIA DOWLING Assessments Encounter Date Diagnosis (ICD Code) Assessment Notes Treatment Notes Treatment Clinical Notes Section Notes 10/31/2024 Mixed hyperlipidemia (ICD-10 - E78.2) Trish is a 59-year-old female who presents to the office today for new patient evaluation. Patient is welcomed to the practice. They are coming from [facility]. Last complete physical exam with labs February [...] Dictation was accomplished with the use of Senic voice recognition software, which is prone to [...] to the practice. They are coming from [facility]. Last complete physical exam with labs February [...] Dictation was accomplished with the use of Senic voice recognition software, which is prone to [...] to the practice. They are coming from [facility]. Last complete physical exam with labs February [...] Dictation was accomplished with the use of Senic voice recognition software, which is prone to [...] to the practice. They are coming from [facility]. Last complete physical exam with labs February [...] Dictation was accomplished with the use of Senic voice recognition software, which is prone to [...] Insured Coverage Start Date Coverage End Date [facility] [address] [place] [address] [id number] Trish Kan Self - patient is the insured 4 Medical (General) History Medical History History ICD Code thyroid disease anxiety depression hearing loss
--- OUTSIDE RECORDS SUMMARY | 2025-09-12 07:52 | XMS_ITS | Clinical Summary ---
Author Organization [facility] Prior to 02/22/25 Address [address] [place] [address] Care Team Providers Care Road Service Locksmith Name Role Phone Concepcion Fall MD Primary Care Provider [phone] Allergies No known active allergies Medications Medication [...] age to complete this topic Care Teams Road Service Locksmith Relationship Specialty Start Date End Date Concepcion Fall MD PCP - General Internal Medicine 08/26/19
--- OUTSIDE RECORDS SUMMARY | 2025-09-12 07:52 | XMS_ITS | Clinical Summary ---
Author Organization [address] Address [address] [place] [phone] Phone Care Team Providers Care Supervisor Title Name Role Phone Concepcion Fall MD Primary Care Provider [phone] Allergies No known active allergies Medications levothyroxine [...] on biopsy, follows with dermatology, 09/02/10 Immunizations Immunization Administration Dates Next Due Influenza Quadravalent, MDCK [...] CORE W/IMAG GUID ENDOMETRIAL ABLATION 01/08/16 PROCEDURE: AR ENDOMETRIAL ABLTJ THERMAL W/O HYSTEROSCOPIC GUID; COMMENT: [...] Health Maintenance Due Date Last Done Comments HIV Screening 09/03/2022 Social Influencers of Health Screening 09/03/2022 Depression Screening 09/25/2024 COVID-19 Vaccine ( season) 2025 07/07/2024, 06/23/2023, 04/06/2022, Additional history exists Influenza Vaccine (#1) 2025 , 06/16/2023, 06/21/2022, [...] series) 2040 Hepatitis C Screening Completed 09/20/2013 Pneumococcal Vaccine: 50+ Years Completed 07/21/2024, 03/23/2010 Zoster Vaccines Completed 11/20/2024, 07/21/2024 HIB Vaccines Aged Out No longer eligi ble based on patient's age to complete this topic HPV Vaccines Aged Out No longer eligi ble based on patient's age to complete this topic Hepatitis A Vaccines Aged Out No long er eligible based on patient's age to complete this topic Hepatitis B Vaccines Aged Out No long er eligible [...] is recommended in 1 year. Mammo Location: [facility], [address] [place] [address], [id number], . -------- FINAL REPORT -------- Dictated By: Anita Munoz Dictated Date: 09/30/2024 12:44 ET Assigned Physician: Anita Munoz Reviewed and Electronically Signed By: Anita Munoz Signed Date: 09/30/2024 12:47 ET Workstation ID: [id number] Transcribed By: Self Edit Transcribed Date: 09/30/2024 [...] is recommended in 1 year. Mammo Location: [facility], [address] [place] [address], [id number], . -------- FINAL REPORT -------- Dictated By: Anita Munoz Dictated Date: 09/30/2024 12:44 ET Assigned Physician: Anita Munoz Reviewed and Electronically Signed By: Anita Munoz Signed Date: 09/30/2024 12:47 ET Workstation ID: [id number] Transcribed By: Self Edit Transcribed Date: 09/30/2024 12:44 ET Osiris Gutierrez TRIAGE LICENSED PRACTICAL NURSE IMG BI PROCEDURES Final Resul t * Cervical Cancer Screening: HPV (06/09/2021) [facility] Cervical Cancer Screening: HPV negative,a bstracted Historical Provider HEALTH MAINTENANCE Final Result * (ABNORMAL) Lipid panel (06/11/2020) [facility] LDL/HDL Ratio 3 0 - 4 [...] C Screening (09/20/2013) Hepatitis C Screening ABSTRACTED Historical Provider HEALTH MAINTENANCE Final Result from Last 3 Months or Most Recently Relevant to Health Maintenance Insurance Care Teams Supervisor Title Relationship Specialty Start Date End Date Concepcion Fall MD [address] [place] [address] PCP - General 04/13/10
--- NOTE | 2025-09-12 07:58 | MHC.OFFVIS ---
Vital Signs 09/12/25 08:00 Height 5 ft 2 in Weight 158 lb BMI 28.9 BP 99/67 Blood Pressure Location Lt brachial Position Sitting Pulse 76 Pulse Oximetry (%) 99 Oxygen Delivery Method Room Air Intake Visit Reasons: colo screen Intake Note: Patient new consult for 2nd pre Colonoscopy screening. Patient denies any GI issues for today visit. Her 1st Colonoscopy was10 yrs ago at [facility]. Pit Inspector Required: No Accompanied by: Self / Same As Patient Allergies No Known Allergies Allergy (Verified 09/12/25 07:58) Medication List - Last Reconciled 09/12/25 by Kathy Villatoro CNP atorvastatin 40 mg PO DAILY cetirizine (Zyrtec) 10 mg PO DAILY cholecalciferol (vitamin D3) 25 mcg PO DAILY citalopram 10 mg PO DAILY collagen, hydrolysate (bovine) grams PO creatine monohydrate mg PO estradiol 1 patch transdermal QWEEK fluticasone propionate 50 mcg/actuation (Flonase Allergy Relief) 2 sprays intranasal BID levothyroxine 75 mcg PO DAILY magnesium glycinate 200 mg PO DAILY minoxidil 2.5 mg PO DAILY progesterone micronized 100 mg PO BEDTIME thiamine HCl (vitamin B1) 100 mg PO DAILY HPI HPI colo screen: Details: Patient is a 60-year-old female with PMH of depression, anxiety, hypothyroidism, history of CVA. Referred by PCP for pre colonoscopy screening This will be her second colonoscopy; the first one was approximately 10 years ago and had no significant findings. The patient reports a long-standing pattern of having a bowel movement every three days, which she considers her norm. She experiences straining during bowel movements and sometimes feels a sense of incomplete evacuation. She denies any associated abdominal pain, nausea, vomiting, or blood in the stool. Her bowel patterns have not changed since starting progesterone in March for hormone replacement therapy. Her current medications include levothyroxine 75 mcg, progesterone, and an estradiol patch. She also takes multiple [id number]-dkm-[id number] supplements, including magnesium glycinate 400 mg, vitamin D3, DIMS, creatine 5 grams, and collagen. She recently started taking low-dose minoxidil for hair loss. Patient denies: fever/chills, n/v, appetite changes, pyrosis, regurgitation,dysphasia, unintentional wt loss, ab pain or melena/hematochezia. Social hx: -ETOH use 1-2 glass of wine approx 1x/week -denies recreational drug use -former smoker, cessation 31 years ago. - family hx as below -denies personal hx of CA -denies significant cardiopulmonary history -tolerated anesthesia in the past without difficulty. [facility] Medical History (Updated 09/12/25 @ 08:41 by Kathy Villatoro CNP) Constipation Colon cancer screening Acute otitis media with effusion of both ears Hypothyroidism Tear of meniscus of right knee Anxiety Depression CVA (cerebral vascular accident) Surgical History Hx of breast biopsy History of endometrial ablation Family History Father Breast cancer Diabetes Stroke Mother Glaucoma Dementia Atrial fibrillation Son No problems noted. Daughter No problems noted. 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 Cognitive needs: No Hearing needs: No Vision needs: Yes (Contact lenses) Review of Systems Const Reports as per HPI ENT Reports as per HPI Card Reports as per HPI Resp Reports as per HPI GI Reports as per HPI Reports as per HPI Physical Exam Vital Signs: Last Vital Signs Pulse 76 09/12/25 08:00 BP 99/67 09/12/25 08:00 Pulse Ox 99 09/12/25 08:00 Oxygen Delivery Method Room Air 09/12/25 08:00 BMI result Body Mass Index 28.9 Const General: healthy appearing, no acute distress and well developed Nutritional Appearance: average body habitus Orientation/consciousness: patient oriented x3 HEENT Head: Yes normal to inspection, Yes normocephalic and Yes atraumatic Face and sinus: Yes normal facial exam Eyes General: appearance normal, both eyes and all related structures Neck Neck: Yes normal visual inspection Resp Effort & Inspection: normal respiratory effort, able to speak in complete sentences, no tracheal deviation and symmetric chest movement Cardio Jugular venous distension: no JVD Neuro General: patient oriented x3 Gait exam (Neuro): Normal gait present Psych Appearance: grossly normal Mental Status: mental status grossly normal Speech and movement: Normal speech and movement present Affect: normal affect Attitude: cooperative Thought process: Normal thought process present Thought content: Normal thought content present Insight: Good insight present (Psych) Judgement: Good judgement present (Psych) Assessment & Plan Assessment & Plan (1) Colon cancer screening: Code(s): Z12.11 - Encounter for screening for malignant neoplasm of colon Category: Medical Plan: Due for age appropriate screening. No alarm features. Medications: -prescriptions for laxative tablets and MiraLax sent to pharmacy; instructions for Gatorade purchase and clear liquid diet given. Patient educated on scheduling process, procedure preparation, including avoiding certain foods and ensuring clear liquid intake Advised on necessity for ride post-procedure due to sedation. (2) Constipation: Code(s): K59.00 - Constipation, unspecified Category: Medical Qualifiers: Constipation type: unspecified constipation type Qualified Code(s): K59.00 - Constipation, unspecified Plan: Chronic and stable. The initial recommendation is to increase dietary fiber intake, including fruits, vegetables, and legumes, and to maintain adequate water intake. - If dietary modifications are not effective, supplementation with alternative magnesium or a mild laxative may be considered. - The patient was informed that progesterone, a part of her HRT, may be contributing to her constipation by slowing gut motility. - Follow-up on this issue will occur as needed. Plan Follow-up as needed Time: I spent a total of 24 minutes on the date of encounter which includes: Preparing to see the patient (reviewed previous documentation, test results and medical history) Performing a medically appropriate exam and/or evaluation Ordering medications, tests, and procedures Documenting clinical information in the health record Orders: Referrals GI Procedure Notification Z12.11 - Encounter for screening for malignant neoplasm of colon Medications: New bisacodyl take four tablets once day of colonoscopy prep 20 mg (4 x 5 mg) PO ONCE 4 tabs 0RF polyethylene glycol 3350 (Miralax) per colonoscopy prep instructions 238 grams PO ONCE 238 grams 0RF Coding Level of Care Code New Pt New Pt Level 2 (18581) Patient Type New Diagnoses Colon cancer screening Z12.11 Constipation, unspecified constipation type K59.00 Constipation type: unspecified constipation type
[2025-09-12 08:00] VITALS: BP 99/67; PULSE 76; O2SAT 99; BMI 28.9
== END 2025-09-12 08:31 | disposition home or self-care (01) ==
LOC: HO.HGI 07:50
PROVIDERS: Visit Provider Nurse Practitioner Family
DX: Z01.818 Encounter for other preprocedural examination (principal); Z12.11 Encounter for screening for malignant neoplasm of colon; K59.00 Constipation, unspecified
CPT/HCPCS: 99202

== ENCOUNTER 2025-09-12 07:49 | Outpatient (REF) | payer OTHER, SELFPAY ==
[2025-09-12 15:14] LABS: Appearance Urine Clear; Glucose Urine UA Negative (Negative); PH 8.0 (5.0-9.0); Specific Gravity - Urine 1.010 (1.005-1.025)
[2025-09-12 16:01] LABS: Alanine Aminotransferase 24 U/L (0-31); Albumin Level 4.5 g/dL (3.5-5.0); Alkaline Phosphatase 59 U/L (39-117); Anion Gap 11 (12-20); Aspartate Amino Transferase 35 U/L (5-31); Blood Urea Nitrogen 20 mg/dL (9-16); Calcium 9.1 mg/dL (8.4-10.2); Carbon Dioxide 27 mmol/L (22-29); Chloride 106 mmol/L (96-108); Cholesterol 143 mg/dL (<200); Estimated Glomerular Filt Rate 59; Free T4 (Free Thyroxine) 1.20 ng/dL (0.71-1.85); HDL Cholesterol 54 mg/dL (>40); Potassium 4.0 mmol/L (3.3-5.1); Sodium 140 mmol/L (135-145); Total Protein 6.7 g/dL (6.5-8.0); Triglycerides 84 mg/dL (<150)
== END 2025-09-12 07:50 | disposition home or self-care (01) ==
LOC: HO.HMGCLDS 07:49
PROVIDERS: Visit Provider Nurse Practitioner Family
DX: F41.9 Anxiety disorder, unspecified (principal); F32.A Depression, unspecified; E03.9 Hypothyroidism, unspecified; K59.00 Constipation, unspecified; R74.8 Abnormal levels of other serum enzymes; E78.5 Hyperlipidemia, unspecified; Z12.11 Encounter for screening for malignant neoplasm of colon; Z13.21 Encounter for screening for nutritional disorder
CPT/HCPCS: 36415; 80053; 80061; 81003; 82306; 84439; 84443

== ENCOUNTER 2025-09-19 15:12 | Outpatient (AMB) | payer OTHER, SELFPAY ==
--- OUTSIDE RECORDS SUMMARY | 2025-03-25 03:15 | XMS_ITS ---
Author Organization [facility] [address] Address [address] [place] [address] Care Team Providers Care Voice Teacher Name Role Phone Rosa Schmitt Unavailable [phone] LATONIA DOWLING Unavailable [phone] Encounters Encounter Location Date Provider Diagnosis [facility] [address] [address] 03/25/2025 LATONIA DOWLING Plan Of Treatment No Information Progress Notes * Natalia KANDOB:1965 (60 yo F)Acc No.[id number]:03/25/2025 CPE Patient: Annabel Kowalskily Provider: Lauro DOWLING :1965 A ge:59 Y S ex:Female Date:03/25/2025 Address:[address] [place], [place] [id number] Care Plan Details* * Electronic signature of YADIEL DOWLING PA-C, [id number] on 09/19/2025 at 03:15 PM EST Sign off status: Pending * Provider: Lauro DOWLING Date: 0 03/25/2025 Generated for Jocelyne kennedy/Fabritton/eTransmitting on: 1 11/20/2024 03:15 PM EST
--- OUTSIDE RECORDS SUMMARY | 2025-09-19 15:16 | XMS_ITS | Clinical Summary ---
Author Organization [facility] Prior to 02/22/25 Address [address] [place] [address] Care Team Providers Care Land Acquisition Specialist Name Role Phone Concepcion Fall MD Primary Care Provider [phone] Allergies No known active allergies Medications Medication [...] Maintenance Due Date Last Done Comments Hepatitis C Screening 1965 COVID-19 Vaccine (#1) 03/10/1966 Depression Screening 1977 BMI Counseling 1983 Preventative Health Evaluation 1983 Cervical Cancer Screening (Pap Smear) 1986 Colon Cancer Screening (Colonoscopy) 2010 Breast Cancer Screening (Mammogram) 2015 Shingrix-Zoster Vaccine (1 of 2) 2015 DTap / Tdap / Td (2 - Td or Tdap) 06/28/2021 06/28/2011 Influenza Vaccine (#1) 2025 6, 06/11/2013, 06/06/2012, Additional history exists RSV Adult > 60+ Yrs or (1 - 1-dose 75+ series) 2040 Pneumococcal Vaccine Aged Out 03/23/2010 No long er eligible based on patient's age to complete this topic Hepatitis B Vaccines Aged Out No long er eligible based on patient's age to complete this topic RSV Ped < 20 months Aged Out No longe r eligible based on patient's age to complete this topic Care Teams Land Acquisition Specialist Relationship Specialty Start Date End Date Concepcion Fall MD PCP - General Internal Medicine 08/26/19
--- OUTSIDE RECORDS SUMMARY | 2025-09-19 15:16 | XMS_ITS | Encounter Summary ---
Author Organization [facility] Prior to 07/26/2024 Address [address] [place] [address] Care Team Providers Care Fishing Vessel Operator Name Role Phone Concepcion Fall MD Primary Care Provider [phone] Encounter Details Date Type Department Care Team Description 08/07/2019 Certified Registered Nurse Practitioner Report Medical Records [address] [place] [address] Armani Diego Social History Tobacco Use Types [...] on filedocumented in this encounter Care Teams Fishing Vessel Operator Relationship Specialty Start Date End Date Concepcion Fall MD [address] [place] [address] PCP - General 04/13/10 documented as of this encounter
--- OUTSIDE RECORDS SUMMARY | 2025-09-19 15:16 | XMS_ITS | Encounter Summary ---
Author Organization [facility] Prior to 07/26/2024 Address [address] [place] [address] Care Team Providers Care Processing Assistant Name Role Phone Concepcion Fall MD Primary Care Provider Gena Crespo MD Primary Care Provider Unavailable Encounter Details Date Type Department Care Team Description 04/02/2010 Hospital Medical Records [address] [place] [address] Amada Calhoun Social History Tobacco Use Types [...] on filedocumented in this encounter Care Teams Processing Assistant Relationship Specialty Start Date End Date Concepcion Fall MD [address] [place] [address] PCP - General 04/13/10 Gena Crespo MD PCP - General 02/28/0604/12 documented as of this encounter
--- OUTSIDE RECORDS SUMMARY | 2025-09-19 15:16 | XMS_ITS | Encounter Summary ---
Author Organization [facility] Prior to 07/26/2024 Address [address] [place] [address] Care Team Providers Care Software Sales Manager Name Role Phone Concepcion Fall MD Primary Care Provider [phone] Reason for Visit * Reason Comments E-prescribe Rx Request Encounter Details Date Type Department Care Team Description 05/13/2020 Refill Adult Medicine [address] [address] Helen Baird PA-C E-prescribe Rx Request Social [...] N/A Patients current insurance carrier is: Payor: [employer] / [facility] F 1+/$20 / ProductType: HMO [id number] documented in this encounter Plan of Treatment Not on file documented as of this encounter Visit Diagnoses Not on filedocumented in this encounter Care Teams Software Sales Manager Relationship Specialty Start Date End Date Concepcion Fall MD [address] [place] [address] PCP - General 04/13/10 documented as of this encounter
--- OUTSIDE RECORDS SUMMARY | 2025-09-19 15:16 | XMS_ITS | Encounter Summary ---
Author Organization [facility] Prior to 07/26/2024 Address [address] [place] [address] Care Team Providers Care Motorcycle Mechanic Name Role Phone Concepcion Fall MD Primary Care Provider [phone] Reason for Visit * Reason Onset Date Comments immunizations 05/03/2017 Encounter Details Date Type Department Care Team Description 05/03/2017 Telephone Adult Medicine [address] [address] Concepcion Fall MD [address] [place] [address] [phone] immunizations Social History Tobacco Use Types Packs/Day [...] 05/03/2017 11:04 AM EDT Payor: [facility] / Plan: O $20 NORCO 1 / Product Type: HMO [id number] Patient is requesting a list of their [...] ANTIBODY POSITIVE POSITIVE 05/04/2017 2:11 PM EDT [facility] 05/04/2017 10:4 8 AM EDT 05/04/2017 10:48 AM EDT Concepcion Fall MD LAB [address] * [place] ANTIBODY IGG (05/04/2017 10:48 AM EDT) MEASLES IGG POSITIVE POSITIVE 05/04/2017 2:11 PM EDT [facility] 05/04/2017 10:4 8 AM EDT 05/04/2017 10:48 AM EDT Concepcion Fall MD LAB Performing Organization Address [facility] Number [address] * [facility] ANTIBODY IGG,ERICA (05/04/2017 10:48 AM EDT) MUMPS IGG POSITIVE POSITIVE 05/04/2017 2:11 PM EDT [facility] 05/04/2017 10:4 8 AM EDT 05/04/2017 10:48 AM EDT Concepcion Fall MD LAB Performing Organization Address [facility] de Phone Number [address] documented in this encounter Visit Diagnoses Diagnosis Routine general medical examination at a health care facility- Primary documented in this encounter Care Teams Motorcycle Mechanic Relationship Specialty Start Date End Date Concepcion Fall MD [address] [place] [address] PCP - General 04/13/10 documented as of this encounter
--- OUTSIDE RECORDS SUMMARY | 2025-09-19 15:16 | XMS_ITS | Encounter Summary ---
Author Organization [facility] Prior to 07/26/2024 Address [address] [place] [address] Care Team Providers Care Chief Inspector Name Role Phone Concepcion Fall MD Primary Care Provider [phone] Encounter Details Date Type Department Care Team Description 04/15/2015 Release of Information Medical Records [address] [place] [address] Abstract, Provider Social History Tobacco Use Types [...] on filedocumented in this encounter Care Teams Chief Inspector Relationship Specialty Start Date End Date Concepcion Fall MD [address] [place] [address] PCP - General 04/13/10 documented as of this encounter
--- OUTSIDE RECORDS SUMMARY | 2025-09-19 15:16 | XMS_ITS | Clinical Summary ---
Author Organization [facility] Address [address] [place] [address] Care Team Providers Care Kitchen Cleaner Name Role Phone Concepcion Fall Primary Care Provider [phone] Allergies No known active allergies Medications DASETTA 35, 28, 1-35 mg-mcg 0 08/07/2015 Active levothyroxine (SYNTHROID, LEVOXYL) 25 MCG tablet 0 07/27/2015 Active Active Problems No known active problems Family History Medical History Relation Comments Breast cancer Father Relation Status Comments Father Social History Tobacco Use Types Packs/Day Years Used Date Smoking Tobacco: Never Alcohol Use Standard Drinks/Week Comments Not Asked 0 (1 standard drink = 0.6 oz pur e alcohol) Comments No Sex and Gender Information Value Date Recorded Sex Assigned at Not on file Legal Sex Female 10:40 AM EST Gender Identity Not on file Sexual Orientation Not on file Last Filed Vital Signs Vital Sign Reading Time Taken Comments Blood Pressure - - Pulse - - Temperature - - Respiratory Rate - - Oxygen Saturation - - Inhaled Oxygen Concentration - - Weight 70.8 kg (156 lb) 08/31/2015 10:07 AM EST Height 160 cm (5' 3 ) 08/31/2015 10:07 AM EST Body Mass Index 27.63 08/31/2015 10:07 AM EST Plan of Treatment Not on file Insurance Care Teams Kitchen Cleaner Relationship Specialty Start Date End Date Concepcion Fall PCP - General 08/11/15
--- OUTSIDE RECORDS SUMMARY | 2025-09-19 15:16 | XMS_ITS | Clinical Summary ---
Author Organization [address] Address [address] [place] [phone] Phone Care Team Providers Care Water Filtration Technician Name Role Phone Concepcion Fall MD Primary Care Provider [phone] Allergies No known active allergies Medications levothyroxine [...] CORE W/IMAG GUID ENDOMETRIAL ABLATION 01/08/16 PROCEDURE: PA ENDOMETRIAL ABLTJ THERMAL W/O HYSTEROSCOPIC GUID; COMMENT: [...] is recommended in 1 year. Mammo Location: [facility], [address] [place] [address], [address], . -------- FINAL REPORT -------- Dictated By: Anita Munoz Dictated Date: 09/30/2024 12:44 ET Assigned Physician: Anita Munoz Reviewed and Electronically Signed By: Anita Munoz Signed Date: 09/30/2024 12:47 ET Workstation ID: [id number] Transcribed By: Self Edit Transcribed Date: 09/30/2024 [...] is recommended in 1 year. Mammo Location: [facility], [address] [place] [address], [address], . -------- FINAL REPORT -------- Dictated By: Anita Munoz Dictated Date: 09/30/2024 12:44 ET Assigned Physician: Anita Munoz Reviewed and Electronically Signed By: Anita Munoz Signed Date: 09/30/2024 12:47 ET Workstation ID: [id number] Transcribed By: Self Edit Transcribed Date: 09/30/2024 12:44 ET Osiris Gutierrez PLUG MAKING OPERATOR IMG BI PROCEDURES Final Resul t * Cervical Cancer Screening: HPV (06/09/2021) [facility] Cervical Cancer Screening: HPV negative,a bstracted Historical Provider HEALTH MAINTENANCE Final Result * (ABNORMAL) Lipid panel (06/11/2020) [facility] LDL/HDL Ratio 3 0 - 4 [...] Relevant to Health Maintenance Insurance Care Teams Water Filtration Technician Relationship Specialty Start Date End Date Concepcion Fall MD [address] [place] [address] PCP - General 04/13/10
--- OUTSIDE RECORDS SUMMARY | 2025-09-19 15:16 | XMS_ITS | Encounter Summary ---
Author Organization [facility] Prior to 07/26/2024 Address [address] [place] [address] Care Team Providers Care Housing Counselor Name Role Phone Concepcion Fall MD Primary Care Provider [phone] Reason for Visit * Reason Comments E-prescribe Rx Request Encounter Details Date Type Department Care Team Description 2015 Refill OBGYN - Stephan [address] [place] [address] Aj Wilkes MD E-prescribe Rx Request Social [...] on filedocumented in this encounter Care Teams Housing Counselor Relationship Specialty Start Date End Date Concepcion Fall MD [address] [place] [address] PCP - General 04/13/10 documented as of this encounter
--- OUTSIDE RECORDS SUMMARY | 2025-09-19 15:16 | XMS_ITS | Encounter Summary ---
Author Organization [facility] Prior to 07/26/2024 Address [address] [place] [address] Care Team Providers Care Six Pack Loader Operator Name Role Phone Concepcion Fall MD Primary Care Provider [phone] Encounter Details Date Type Department Care Team Description 01/08/2016 [facility] Medical Records [address] [place] [address] Aj Wilkes MD Social History Tobacco Use Types [...] on filedocumented in this encounter Care Teams Six Pack Loader Operator Relationship Specialty Start Date End Date Concepcion Fall MD [address] [place] [address] PCP - General 04/13/10 documented as of this encounter
--- OUTSIDE RECORDS SUMMARY | 2025-09-19 15:16 | XMS_ITS | Encounter Summary ---
Author Organization [employer] [facility] Prior to 07/26/2024 Address [address] [place] [address] Care Team Providers Care Yard Goods Salesperson Name Role Phone Concepcion Fall MD Primary Care Provider [phone] Encounter Details Date Type Department Care Team Description 07/29/2019 Orders Only Medical Records [address] [place] [address] Abstract, Provider Social History Tobacco Use Types [...] on filedocumented in this encounter Care Teams Yard Goods Salesperson Relationship Specialty Start Date End Date Concepcion Fall MD [address] [place] [address] PCP - General 04/13/10 documented as of this encounter
--- OUTSIDE RECORDS SUMMARY | 2025-09-19 15:16 | XMS_ITS | Patient Health Record ---
Author Organization [facility] Address [address] [place] [address] Care Team Providers Care Guest Experience Manager Name Role Phone Rosa Schmitt Unavailable [phone] LATONIA DOWLING Unavailable [phone] Allergies No Known Allergies Results Component Value Reference Range Notes MR BREAST WO AND W CONTRAST BILAT Reviewed date:11/27/2024 01:13:25 PM Interpretation: Performing Lab: Notes/Report: Note See Note [facility], a member of [employer] Patient Name: TRISH KAN Date of : 1965 Reason for Exam: malignant neoplasm of breast Exam Date: 11/19/2024 [id number] EST Report Status: Final Ordering Provider: LATONIA [...] Signed Date: 025 11:02 ET Workstation ID: [id number] Transcribed By: Self Edit Transcribed Date: 11/23/2024 [...] W/U Status Risk Notes Problem Mixed hyperlipidemia (068865878) Mixed hyperlipidemia (E78.2) Active confirmed Problem Acquired hypothyroidism (295668849) Acquired hypothyroidism (E03.9) Active confirmed Problem Mixed anxiety and depressive disorder (435696613) Depression with anxiety (F41.8) Active confirmed Vital Signs Heart Rate 86 /min 10/31/2024 Oximetry 97 % 10/31/2024 Blood pressure diastolic 78 mm Hg 10/31/2024 Height 62 in 10/31/2024 Blood pressure systolic 122 mm Hg 10/31/2024 Weight 148 lbs 10/31/2024 BMI 27.07 kg/m2 10/31/2024 Encounters Encounter Location Date Provider Diagnosis [facility] [address] [place] [phone] 10/31/2024 LATONIA DOWLING Mixed hyperlipidemia E78.2 ; Acquired hypothyroidism E03.9 ; Depression with anxiety F41.8 and Family history of breast cancer Z80.3 [facility] [address] [facility] [address] [place] [address] 10/31/2024 LATONIA DOWLING [facility] [address] [facility] [address] [place] [address] 11/01/2024 LATONIA DOWLING Family history of br east cancer Z80.3 [facility] [address] [facility] [address] [place] [address] 11/13/2024 LATONIA DOWLING [facility] [address] [facility] [address] [place] [address] 11/25/2024 LATONIA DOWLING Assessments Encounter Date Diagnosis (ICD Code) Assessment Notes Treatment Notes Treatment Clinical Notes Section Notes 10/31/2024 Mixed hyperlipidemia (ICD-10 - E78.2) Trihs is a 59-year-old female who presents to the office today for new patient evaluation. Patient is welcomed to the practice. They are coming from [facility]. Last complete physical exam with labs February [...] Dictation was accomplished with the use of [employer] voice recognition software, which is prone to [...] to the practice. They are coming from [facility]. Last complete physical exam with labs February [...] Dictation was accomplished with the use of [employer] voice recognition software, which is prone to [...] to the practice. They are coming from [facility]. Last complete physical exam with labs February [...] Dictation was accomplished with the use of [employer] voice recognition software, which is prone to [...] to the practice. They are coming from [facility]. Last complete physical exam with labs February [...] Dictation was accomplished with the use of [employer] voice recognition software, which is prone to [...] Insured Coverage Start Date Coverage End Date [facility] [address] [place] [address] [id number] Trish Kan Self - patient is the insured 4 Medical (General) History Medical History History ICD Code thyroid disease anxiety depression hearing loss
--- OUTSIDE RECORDS SUMMARY | 2025-09-19 15:16 | XMS_ITS | Encounter Summary ---
Author Organization [facility] Prior to 07/26/[address] [facility] [place] [address] Care Team Providers Care Picc Nurse Name Role Phone Concepcion Fall MD Primary Care Provider [phone] Encounter Details Date Type Department Care Team Description 07/15/2019 Septic Tank Setter Report Medical Records [address] [place] [address] Abstract, Provider Social History Tobacco Use Types [...] on filedocumented in this encounter Care Teams Picc Nurse Relationship Specialty Start Date End Date Concepcion Fall MD [address] [place] [address] PCP - General 04/13/10 documented as of this encounter
--- OUTSIDE RECORDS SUMMARY | 2025-09-19 15:16 | XMS_ITS | Encounter Summary ---
Author Organization [facility] Prior to 07/26/2024 Address [address] [place] [address] Care Team Providers Care Technology Internship Name Role Phone Concepcion Fall MD Primary Care Provider [phone] Encounter Details Date Type Department Care Team Description 12/21/2018 Spring Salvage Worker Report Medical Records [address] [place] [address] Luis Peña PA-C Social History Tobacco Use [...] on filedocumented in this encounter Care Teams Technology Internship Relationship Specialty Start Date End Date Concepcion Fall MD [address] [place], [place] [phone] PCP - General 04/13/10 documented as of this encounter
--- NOTE | 2025-09-19 15:23 | A.OFFPC_ITS ---
Vital Signs 09/19/25 15:24 Height 5 ft 2 in Weight 160 lb 6 oz BMI 29.3 BP 94/60 Blood Pressure Location Lt brachial Position Sitting Pulse 84 Pulse Source Pulse Oximeter Temp 96.8 F Temp Source Temporal Artery Scan Pulse Oximetry (%) 99 Oxygen Delivery Method Room Air Intake Visit Reasons: Reschedule hypothyroid/elevated ast/hld Intake Note: Patient is here to follow up on Hypothyroid, elevated ast, HLD. Audio Visual Design Engineer Required: No Spindle Carver: Not Required per policy Accompanied by: Self / Same As Patient Allergies No Known Allergies Allergy (Verified 09/19/25 15:41) Medication List - Last Reconciled 09/19/25 by FRANCISCO Wiley atorvastatin 40 mg PO DAILY bisacodyl 20 mg (4 x 5 mg) PO ONCE cetirizine (Zyrtec) 10 mg PO DAILY cholecalciferol (vitamin D3) 25 mcg PO DAILY citalopram 10 mg PO DAILY collagen, hydrolysate (bovine) grams PO creatine monohydrate mg PO estradiol 1 patch transdermal QWEEK fluticasone propionate 50 mcg/actuation (Flonase Allergy Relief) 2 sprays intranasal BID levothyroxine 75 mcg PO DAILY magnesium glycinate 200 mg PO DAILY minoxidil 2.5 mg PO DAILY polyethylene glycol 3350 (Miralax) 238 grams PO ONCE progesterone micronized 100 mg PO BEDTIME thiamine HCl (vitamin B1) 100 mg PO DAILY Tobacco use date assessed: 09/19/25 Dental Screening Dental Screen Date: 01/01/25 HPI HPI Comments History of Present Illness Details History of Present Illness The patient is a 60 year old female presenting for a follow-up visit to review lab results and discuss ongoing symptoms. She reports new-onset fatigue over the last 2-3 months, noting she has less energy despite maintaining an active lifestyle, which includes working out five days a week. Her routine involves waking at 3:30-4:00 AM for the gym and going to bed around 8:00 PM. She reports her depression has increased slightly. She has been on citalopram 10 mg for at least two years and sees a therapist monthly for her depression. The patient also reports waking up feeling very congested, which she describes as similar to having an allergy, and has recently started using a humidifier. She has Flonase which she uses from time to time. She reports snoring but denies gasping for air. Recent lab results showed a slight drop in her GFR, which was attributed to her water intake. Her AST level has trended down from 44 to 35, and her albumin has normalized. Her good cholesterol, vitamin D, and thyroid levels are good. She continues to take her thyroid medication. Health Maintenance - The patient exercises five days a week . - Counseling on increased water intake w as provided. - Labs to be checked at the next visit i nclude a CBC, iron, B12, and folate. - The patient is in therapy for depressi on, which she attends monthly. Social History - The patient exercises five days a week . - She typically wakes at 3 AM, goes to [employer] gym from approximately 4:45 AM to 6 AM, and goes to bed around 8 PM. - She verbalizes a need to increase prot ein and water intake. Results - Comprehensive Metabolic Panel: GFR sli ghtly decreased, attributed to hydration status. AST trended down to 35 from 44. Albumin is normal. - Lipid Panel: HDL cholesterol is >40. - Vitamin D: Level is good. - Thyroid Studies: Thyroid level is good . - Synovial Fluid Analysis (Right Knee): Clear, with no signs of infection. [facility] Medical History (Updated 09/19/25 @ 16:11 by FRANCISCO Wiley) Constipation Colon cancer screening Acute otitis media with effusion of both ears Hypothyroidism Tear of meniscus of right knee Anxiety Depression CVA (cerebral vascular accident) Surgical History Hx of breast biopsy History of endometrial ablation Family History Father Breast cancer Diabetes Stroke Mother Glaucoma Dementia Atrial fibrillation Son No problems noted. Daughter No problems noted. 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 Cognitive needs: No Hearing needs: No Vision needs: Yes (Contact lenses) Questionnaire Thrive Questionnaire Date Thrive assessed: 12/29/24 I am a: Patient What is your living situation today?: I have a steady place to live Within the past 12 months, did the food you bought not last and you didn't have the money to get more?: Never true Within the past 12 months, did you worry whether your food would run out before you got money to buy more?: Never true Do you have trouble paying for medicines?: No Do you have trouble getting transportation to medical appointments?: No Do you have trouble paying your heating and electricity bill?: No Do you have trouble taking care of your child, family member or friend?: No Do you have trouble with day-to-day activities such as bathing, preparing meals, shopping, managing finances, etc.?: No Are you currently unemployed and looking for a job?: No Are you interested in more education?: No Currently or been in a relationship where the following occur: No concerns reported THRIVE Score: 0 FRIDA-7 AMB Questionnaire FRIDA-7 Date FRIDA - 7 assessed: 01/01/25 Source: Developed by Drs. Cosme Engle, Lianne Burciaga, Roland Scott and colleagues, with an educational moo from [employer]. Review of Systems Narrative Review of Systems - Constitutional: Reports fatigue. - Psychiatric: Reports a slight increase in depression. Denies anxiety. - Respiratory: Reports nasal congestion upon waking. Denies shortness of breath. - Cardiovascular: Denies chest pain. - Sleep: Reports snoring. Denies gasping for air. Const Denies headache(s) and Reports lethargy (Later on in the evenings) Eyes Denies loss of vision ENT Denies vertigo, Denies dizziness, Denies headache(s), Reports nasal congestion, Denies sore throat and Reports other (cracking sound in the left ear intermittently) Card Denies chest pain, Denies leg edema and Denies lightheadedness Resp Denies cough, Denies hemoptysis and Denies wheezing GI Denies abdominal pain, Denies melena, Denies constipation, Denies diarrhea and Denies vomiting Denies urinary frequency, Denies dysuria and Denies urinary urgency Musc Denies arthralgias, Denies joint swelling, Denies numbness and Denies tingling Neuro Denies Abnormal speech present, Denies behavioral changes, Denies vertigo, Denies dizziness, Denies headache(s), Denies loss of vision, Denies memory loss, Denies numbness and Denies tingling Psych Denies anxiety, Denies behavioral changes, Denies depression, Denies memory loss and Denies panic attacks Spike/Lymph Denies easy bleeding and Denies easy bruising Aller/Immun Denies wheezing Physical exam (Primary Care) Vital Signs: Last Vital Signs Temp 96.8 F 09/19/25 15:24 Pulse 84 09/19/25 15:24 BP 94/60 09/19/25 15:24 Pulse Ox 99 09/19/25 15:24 Oxygen Delivery Method Room Air 09/19/25 15:24 BMI result Body Mass Index 29.3 Tobacco/Smoking Status: Tobacco use Status Tobacco use date assessed 09/19/25 09/19/25 15:28 Patient Tobacco Use Status Former Tobacco user 09/19/25 15:28 Tobacco use type Cigarette,Cigar 09/19/25 15:28 e-Cigarette/Vaping Use Never Used 09/19/25 15:28 Thrive Assessment: Date of Thrive Assessment Date Thrive assessed 12/29/24 09/19/25 15:28 Currently or been in a relationship where the following occur: No concerns reported Narrative Physical Exam - Respiratory: Lungs are clear to auscultation bilaterally. Const General: healthy appearing, no acute distress, alert and awake Nutritional Appearance: well nourished Orientation/consciousness: oriented to person, oriented to place and oriented to time HENMI Ears: TM's normal bilaterally General nose exam: Abnormal mucous membranes and turbinates present erythematous bilateral Eyes Conjunctivae: conjunctivae normal Sclerae: sclerae normal Pupils: Equal, round and reactive pupils present Neck Neck: Yes no lymphadenopathy and Yes no JVD Thyroid: Thyroid normal Carotids: no bruits Resp Effort & Inspection: normal respiratory effort and not tachypneic Auscultation: no crackles, no rales, no rhonchi and no wheezes Cardio Rate: regular rate Rhythm: regular rhythm Heart sounds: no murmurs and normal S1 and S2 GI Palpation (GI): Soft to palpation, nontender, no hepatomegaly and no splenomegaly Auscultation: normal bowel sounds Skin General skin exam: no rashes or lesions noted and dry skin Neuro General: oriented to person, oriented to place and oriented to time Cranial nerves: Yes Equal, round and reactive pupils present Speech: No Abnormal speech present Gait exam (Neuro): Normal gait present Extrem Right upper extremity: full ROM Left upper extremity: full ROM Right lower extremity: full ROM; no edema Left lower extremity: full ROM; no edema Psych Mental Status: mental status grossly normal Speech and movement: Normal speech and movement present Affect: normal affect Attitude: cooperative Thought process: Normal thought process present Results Reviewed Results Reviewed: Laboratory Tests 09/12/25 09/12/25 10:30 10:35 Sodium 140 Potassium 4.0 Chloride 106 Carbon Dioxide 27 Anion Gap 11 L BUN 20 H Creatinine 0.97 Estimated GFR 59 Fasting Glucose 74 Calcium 9.1 D Total Bilirubin 0.4 AST 35 H ALT 24 Alkaline Phosphatase 59 Total Protein 6.7 Albumin 4.5 Triglycerides 84 Cholesterol 143 LDL Cholesterol, Calc 73 HDL Cholesterol 54 25-OH Vitamin D Total 76.8 TSH 1.59 Free T4 1.20 Urine Color Yellow Urine Appearance Clear Urine pH 8.0 Ur Specific [place] 1.010 Urine Protein Negative Urine Glucose (UA) Negative Urine Ketones Negative Urine Blood Negative Urine Nitrite Negative Ur Leukocyte Esterase Negative Coding Level of Care Code Est Pt Level 4 (02080) Diagnoses Pure hypercholesterolemia E78.00 Hyperlipidemia type: pure hypercholesterolemia Anxiety F41.9 Depression, unspecified depression type F32.A Depression Type: unspecified Hypothyroidism, unspecified type E03.9 Hypothyroidism type: unspecified Elevated liver enzymes R74.8 Left hip pain M25.552 Hair thinning L65.9 Tiredness R53.83 Allergic rhinitis, unspecified seasonality, unspecified trigger J30.9 Allergic rhinitis trigger: unspecified Allergic rhinitis seasonality: unspecified Time Spent (min) 35 Assessment & Plan Assessment & Plan (1) HLD (hyperlipidemia): Code(s): E78.5 - Hyperlipidemia, unspecified Category: Medical Qualifiers: Hyperlipidemia type: pure hypercholesterolemia Qualified Code(s): E78.00 - Pure hypercholesterolemia, unspecified Plan: LDL decreased from 79-73 mg/dL, HDL continue to be within normal limits Discussed lifestyle modifications including dietary changes and physical activity Continue atorvastatin 40 mg daily We will repeat lipid panel in 3 months (2) Anxiety: Code(s): F41.9 - Anxiety disorder, unspecified Category: Medical Plan: Encouraged CBT Continue citalopram 10 mg daily Denies SI/HI Follow up with therapist as scheduled (3) Depression: Code(s): F32.A - Depression, unspecified Category: Medical Qualifiers: Depression Type: unspecified Qualified Code(s): F32.A - Depression, unspecified Plan: Same as above (4) Hypothyroidism: Code(s): E03.9 - Hypothyroidism, unspecified Category: Medical Qualifiers: Hypothyroidism type: unspecified Qualified Code(s): E03.9 - Hypothyroidism, unspecified Plan: Patient thyroid function within normal limits-euthyroid Continue levothyroxine 75 mcg daily We will recheck TFTs in 3 months (5) Elevated liver enzymes: Code(s): R74.8 - Abnormal levels of other serum enzymes Category: Medical Plan: AST decreased from 44-35 U/L Limit alcohol, Tylenol her medication containing Tylenol, fatty foods intake We will repeat labs in 3 months (6) Left hip pain: Code(s): M25.552 - Pain in left hip Category: Medical Plan: Patient denies pain today. Recently she had complained of ongoing left hip pain. X-ray of the left hip was completed with no acute findings. We will continue to monitor at this time (7) Hair thinning: Code(s): L65.9 - Nonscarring hair loss, unspecified Category: Medical Plan: Patient was referred to Dermatology on her previous visit (8) Tiredness: Code(s): R53.83 - Other fatigue Category: Medical Plan: The patient's fatigue, which started 2-3 months ago, is likely multifactorial. 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 Her thyroid levels are within the high-normal range and are less likely to be the cause. Anemia is also not suspected as her CBC was normal previously. She was advised to increase her water intake. A CBC, iron, B12, and folate level will be checked at her next visit to rule out other underlying causes. (9) Allergic rhinitis: Code(s): J30.9 - Allergic rhinitis, unspecified Category: Medical Qualifiers: Allergic rhinitis trigger: unspecified Allergic rhinitis seasonality: unspecified Qualified Code(s): J30.9 - Allergic rhinitis, unspecified Plan: The patient reports morning nasal congestion, which may be disrupting her sleep quality. She has started using a humidifier, which may help. She was advised that she can use Flonase as needed, as well as occasional use of oral antihistamines like Claritin or Zyrtec. Plan Plan Patient was informed and verbally consented to the use of an ambient scribe for clinic note documentation during this visit. 1. Fatigue The patient's fatigue, which started 2-3 months ago, is likely multifactorial. 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 Her thyroid levels are within the high-normal range and are less likely to be the cause. Anemia is also not suspected as her CBC was normal previously. She was advised to increase her water intake. A CBC, iron, B12, and folate level will be checked at her next visit to rule out other underlying causes. 2. Depression The patient reports a slight worsening of her depression. She has been taking citalopram 10 mg for at least two years. An option to increase her citalopram dosage to 20 mg was discussed, but she preferred to continue with the current 10 mg dose for now. She will continue with her monthly therapy sessions and monitor her symptoms. 3. Allergic Rhinitis The patient reports morning nasal congestion, which may be disrupting her sleep quality. She has started using a humidifier, which may help. She was advised that she can use Flonase as needed, as well as occasional use of oral antihistamines like Claritin or Zyrtec. 4. Chronic conditions Lab results were reviewed, showing improving liver enzymes and stable thyroid, vitamin D, and cholesterol levels. The patient was counseled on increasing hydration, continuing her exercise routine, and the importance of diet. A follow-up is scheduled in three months for reassessment and repeat labs. Discussion Notes I reviewed the patient's recent lab results with her, noting the mild decrease in GFR, likely due to inadequate fluid intake, and the improvement in her liver enzymes. 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 I offered to increase her citalopram from 10 mg to 20 mg, but she declined at this time, preferring to continue with the current dose. I advised her to increase her water intake and reassured her that we would investigate other potential causes for fatigue with additional bloodwork, including a CBC, iron, B12, and folate, at her next visit. We also discussed management for her nasal congestion, including the humidifier she started using and the occasional use of Flonase or an oral antihistamine. We will follow up in three months to reassess her symptoms and review new lab results. Patient Instructions - Please increase the amount of water you drink daily. - Continue taking your thyroid medication and Citalopram 10 mg as prescribed. - Continue with your regular exercise routine, as this is beneficial for your health. - For your morning stuffiness, you can use a humidifier, Flonase spray from time to time, or an [id number] allergy pill like Claritin or Zyrtec as needed. - Continue with your monthly therapy appointments. - We will schedule a follow-up appointment in three months to check your progress and do more blood tests. - Please contact us if your feelings of tiredness or depression get worse. Orders: Orders Complete Blood Count Auto Diff 3 Months E03.9 - Hypothyroidism, unspecified, E78.00 - Pure hypercholesterolemia, unspecified, F32.A - Depression, unspecified, F41.9 - Anxiety disorder, unspecified, R53.83 - Other fatigue Comprehensive [place]. Panel Fast 3 Months E03.9 - Hypothyroidism, unspecified, E78.00 - Pure hypercholesterolemia, unspecified, F32.A - Depression, unspecified, F41.9 - Anxiety disorder, unspecified, R53.83 - Other fatigue Lipid Panel 3 Months E03.9 - Hypothyroidism, unspecified, E78.00 - Pure hypercholesterolemia, unspecified, F32.A - Depression, unspecified, F41.9 - Anxiety disorder, unspecified, R53.83 - Other fatigue TSH reflex Free T4 3 Months E03.9 - Hypothyroidism, unspecified, E78.00 - Pure hypercholesterolemia, unspecified, F32.A - Depression, unspecified, F41.9 - Anxiety disorder, unspecified, R53.83 - Other fatigue Vitamin D 25-OH Total 3 Months E03.9 - Hypothyroidism, unspecified, E78.00 - Pure hypercholesterolemia, unspecified, F32.A - Depression, unspecified, F41.9 - Anxiety disorder, unspecified, R53.83 - Other fatigue Vitamin B12 and Folate 3 Months E03.9 - Hypothyroidism, unspecified, E78.00 - Pure hypercholesterolemia, unspecified, F32.A - Depression, unspecified, F41.9 - Anxiety disorder, unspecified, R53.83 - Other fatigue UA CC w/rflx Micro + Cult 3 Months E03.9 - Hypothyroidism, unspecified, E78.00 - Pure hypercholesterolemia, unspecified, F32.A - Depression, unspecified, F41.9 - Anxiety disorder, unspecified, R53.83 - Other fatigue IRON PROFILE 3 Months E03.9 - Hypothyroidism, unspecified, E78.00 - Pure hypercholesterolemia, unspecified, F32.A - Depression, unspecified, F41.9 - Anxiety disorder, unspecified, R53.83 - Other fatigue Free T4 (Free Thyroxine) 3 Months E03.9 - Hypothyroidism, unspecified, E78.00 - Pure hypercholesterolemia, unspecified, F32.A - Depression, unspecified, F41.9 - Anxiety disorder, unspecified, R53.83 - Other fatigue
[2025-09-19 15:24] VITALS: BP 94/60; PULSE 84; TEMP 36; O2SAT 99; BMI 29.3
== END 2025-09-19 15:59 | disposition home or self-care (01) ==
LOC: HO.HMCH 15:13
DX: E78.00 Pure hypercholesterolemia, unspecified (principal); F41.9 Anxiety disorder, unspecified; F32.A Depression, unspecified; E03.9 Hypothyroidism, unspecified; R74.8 Abnormal levels of other serum enzymes; M25.552 Pain in left hip; L65.9 Nonscarring hair loss, unspecified; R53.83 Other fatigue; J30.9 Allergic rhinitis, unspecified

== ENCOUNTER 2025-09-22 09:09 | Outpatient (AMB) | payer OTHER, SELFPAY ==
--- OUTSIDE RECORDS SUMMARY | 2025-03-25 03:15 | XMS_ITS ---
Author Organization [facility] [address] Address [address] [place] [address] Care Team Providers Care Anhydrous Ammonia Production Supervisor Name Role Phone Rosa Schmitt Unavailable [phone] LATONIA DOWLING Unavailable [phone] Encounters Encounter Location Date Provider Diagnosis [facility] [address] [address] 03/25/2025 LATONIA DOWLING Plan Of Treatment No Information Progress Notes * Natalia KANDOB:1965 (60 yo F)Acc No.[id number]:03/25/2025 CPE Patient: Natalia Kowalski Provider: Lauro DOWLING :1965 A ge:59 Y S ex:Female Date:03/25/2025 Address:[address] [place], [place] [id number] Care Plan Details* * Electronic signature of YADIEL DOWLING PA-C, [id number] on 09/22/2025 at 09:24 AM EST Sign off status: Pending * Provider: Lauro DOWLING Date: 0 03/25/2025 Generated for Jocelyne kennedy/Fabritton/eTransmitting on: 1 09:24 AM EST
--- OUTSIDE RECORDS SUMMARY | 2025-09-22 09:24 | XMS_ITS | Clinical Summary ---
Author Organization [address] Address [address] [place] [id number] Phone Care Team Providers Care Lens Gauger Name Role Phone Concepcion Fall MD Primary Care Provider [phone] Allergies No known active allergies Medications levothyroxine [...] CORE W/IMAG GUID ENDOMETRIAL ABLATION 01/08/16 PROCEDURE: ME ENDOMETRIAL ABLTJ THERMAL W/O HYSTEROSCOPIC GUID; COMMENT: [...] is recommended in 1 year. Mammo Location: [facility], [address] [place] [address], [id number], . -------- FINAL REPORT -------- Dictated By: Anita Munoz Dictated Date: 09/30/2024 12:44 ET Assigned Physician: Anita Munoz Reviewed and Electronically Signed By: Anita Munoz Signed Date: 09/30/2024 12:47 ET Workstation ID: [id number] Transcribed By: Self Edit Transcribed Date: 09/30/2024 [...] is recommended in 1 year. Mammo Location: [facility], [address] [place] [address], [id number], . -------- FINAL REPORT -------- Dictated By: Anita Munoz Dictated Date: 09/30/2024 12:44 ET Assigned Physician: Anita Munoz Reviewed and Electronically Signed By: Anita Munoz Signed Date: 09/30/2024 12:47 ET Workstation ID: [id number] Transcribed By: Self Edit Transcribed Date: 09/30/2024 12:44 ET Osiris Gutierrez EFFICIENCY ENGINEER IMG BI PROCEDURES Final Resul t * Cervical Cancer Screening: HPV (06/09/2021) [facility] Cervical Cancer Screening: HPV negative,a bstracted Historical Provider HEALTH MAINTENANCE Final Result * (ABNORMAL) Lipid panel (06/11/2020) [facility] LDL/HDL Ratio 3 0 - [...] Relevant to Health Maintenance Insurance Care Teams Lens Gauger Relationship Specialty Start Date End Date Concepcion Fall MD [address] [place] [id number] PCP - General 04/13/10
--- OUTSIDE RECORDS SUMMARY | 2025-09-22 09:24 | XMS_ITS | Encounter Summary ---
Author Organization [facility] Prior to 07/26/2024 Address [address] [place] [address] Care Team Providers Care Sales Service Coordinator Name Role Phone Concepcion Fall MD Primary Care Provider [phone] Gena Crespo MD Primary Care Provider Unavailable Encounter Details Date Type Department Care Team Description 04/02/2010 Hospital Medical Records [address] [place] [address] Amada Calhoun Social History Tobacco Use Types [...] on filedocumented in this encounter Care Teams Sales Service Coordinator Relationship Specialty Start Date End Date Concepcion Fall MD [address] [place] [address] PCP - General 04/13/10 Gena Crespo MD PCP - General 02/28/0604/12 documented as of this encounter
--- OUTSIDE RECORDS SUMMARY | 2025-09-22 09:24 | XMS_ITS | Clinical Summary ---
Author Organization [facility] Address [address] [place] [address] Care Team Providers Care Process Plant Operator Name Role Phone Concepcion Fall Primary Care Provider [phone] Allergies No known active allergies Medications DASETTA [...] Treatment Not on file Insurance Care Teams Process Plant Operator Relationship Specialty Start Date End Date Concepcion Fall PCP - General 08/11/15
--- OUTSIDE RECORDS SUMMARY | 2025-09-22 09:24 | XMS_ITS | Encounter Summary ---
Author Organization [facility] Prior to 07/26/2024 Address [address] [place] [address] Care Team Providers Care Cardiac Rehab Nurse Name Role Phone Concepcion Fall MD Primary Care Provider [phone] Reason for Visit * Reason Comments E-prescribe Rx Request Encounter Details Date Type Department Care Team Description 12/29/2021 Refill Adult Medicine [facility] [address] [place] [id number] Concepcion Fall MD [address] [place] [phone] E-prescribe Rx Request Social History Tobacco Use [...] an upcoming appointment? No-unable to reach left [place] to call for appointment due to refill [...] N/A Patients current insurance carrier is: Payor: [place] / Plan: ALEX [place] $20/$35 / Product Type: HMO [id number] documented in this encounter Plan of Treatment Not on file documented as of this encounter Visit Diagnoses Not on filedocumented in this encounter Care Teams Cardiac Rehab Nurse Relationship Specialty Start Date End Date Concepcion Fall MD [address] [place], [place] [id number] PCP - General 04/13/10 documented as of this encounter
--- OUTSIDE RECORDS SUMMARY | 2025-09-22 09:24 | XMS_ITS | Encounter Summary ---
Author Organization [facility] Prior to 07/26/2024 Address [address] [place] [address] Care Team Providers Care Photovoltaic Installer Name Role Phone Concepcion Fall MD Primary Care Provider [phone] Reason for Visit * Reason Onset Date Comments immunizations 05/03/2017 Encounter Details Date Type Department Care Team Description 05/03/2017 Telephone Adult Medicine [address] [address] Concepcion Fall MD [address] [place] [address] [phone] immunizations Social History Tobacco Use Types Packs/Day [...] Merlos - 05/03/2017 11:04 AM EDT Payor: [facility] / Plan: O $20 [place] OTSELIC 1 / Product Type: HMO [id number] Patient is requesting a list of their [...] ANTIBODY POSITIVE POSITIVE 05/04/2017 2:11 PM EDT [facility] 05/04/2017 10:4 8 AM EDT 05/04/2017 10:48 AM EDT Concepcion Fall MD LAB [address] * [place] ANTIBODY IGG (05/04/2017 10:48 AM EDT) MEASLES IGG POSITIVE POSITIVE 05/04/2017 2:11 PM EDT [facility] 05/04/2017 10:4 8 AM EDT 05/04/2017 10:48 AM EDT Concepcion Fall MD LAB Performing Organization Address [facility] Number [address] * [facility]PS ANTIBODY IGG,ERICA (05/04/2017 10:48 AM EDT) MUMPS IGG POSITIVE POSITIVE 05/04/2017 2:11 PM EDT [facility] 05/04/2017 10:4 8 AM EDT 05/04/2017 10:48 AM EDT Concepcion Fall MD LAB Performing Organization Address [facility] de Phone Number [address] documented in this encounter Visit Diagnoses Diagnosis Routine general medical examination at a health care facility- Primary documented in this encounter Care Teams Photovoltaic Installer Relationship Specialty Start Date End Date Concepcion Fall MD [address] [place] [id number] PCP - General 04/13/10 documented as of this encounter
--- OUTSIDE RECORDS SUMMARY | 2025-09-22 09:24 | XMS_ITS | Encounter Summary ---
Author Organization [facility] Prior to 07/26/2024 Address [address] [place] [address] Care Team Providers Care Repairer Pump Name Role Phone Concepcion Fall MD Primary Care Provider [phone] Encounter Details Date Type Department Care Team Description 04/14/2015 Noodle Press Operator Report Medical Records [address] [place] [address] Glenn Veras MD Social History Tobacco Use [...] on filedocumented in this encounter Care Teams Repairer Pump Relationship Specialty Start Date End Date Concepcion Fall MD [address] [place] [address] PCP - General 04/13/10 documented as of this encounter
--- OUTSIDE RECORDS SUMMARY | 2025-09-22 09:24 | XMS_ITS | Clinical Summary ---
Author Organization [facility] Prior to 07/26/2024 Address [address] [place] [address] Care Team Providers Care Truss Puller Helper Name Role Phone Concepcion Fall MD [...] HEPATITIS C SCREENING Completed 09/20/2013 Care Teams Truss Puller Helper Relationship Specialty Start Date End Date Concepcion Fall MD [address] [place], [place] [id number] PCP - General 04/13/10
--- OUTSIDE RECORDS SUMMARY | 2025-09-22 09:25 | XMS_ITS | Encounter Summary ---
Author Organization [facility] Prior to 07/26/2024 Address [address] [place] [address] Care Team Providers Care Minister Name Role Phone Concepcion Fall MD Primary Care Provider [phone] Reason for Visit * Reason Onset Date Comments Appointment-Internal Referral 06/08/2021 Encounter Details Date Type Department Care Team Description 06/08/2021 Telephone OBGYN - [facility] [address] [place] [address] Rosa Duron MD [address] [place] [address] [phone] Appointment-Internal Referral Social History Tobacco Use Types [...] patient. 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 Name of Specialist patient is seeing: Rosa Duron Reason/diagnosis for visit: annual exam Date of appoinment: 06/09/21 If retro, date referral needs to start: Concepcion Fall Payor: [employer] / [facility] / Product Type: HMO [id number] documented in this encounter Plan of Treatment Not on file documented as of this encounter Visit Diagnoses Not on filedocumented in this encounter Care Teams Minister Relationship Specialty Start Date End Date Cocnepcion Fall MD [address] [place] [id number] PCP - General 04/13/10 documented as of this encounter
--- OUTSIDE RECORDS SUMMARY | 2025-09-22 09:25 | XMS_ITS | Patient Health Record ---
Author Organization [facility] Address [address] [place] [address] Care Team Providers Care Research Physicist Name Role Phone Rosa Schmitt Unavailable [phone] LATONIA DOWLING Unavailable [phone] Allergies No Known Allergies Results Component Value Reference Range Notes MR BREAST WO AND W CONTRAST BILAT Reviewed date:11/27/2024 01:13:25 PM Interpretation: Performing Lab: Notes/Report: Note See Note [facility], a member of [employer] Patient Name: TRISH KAN Date of : 1965 Reason for Exam: malignant neoplasm of breast Exam Date: 11/19/2024 [id number] EST Report Status: Final Ordering Provider: LATONIA [...] Signed Date: 025 11:02 ET Workstation ID: [id number] Transcribed By: Self Edit Transcribed Date: 11/23/2024 10:56 ET Reason For Referral Reason Cervical cancer scre ening Diagnosis 1 Pap smear for cervic al cancer screening (Z12.4) Referral Organization [facility] [address] Referring Provider First Name [...] W/U Status Risk Notes Problem Mixed hyperlipidemia (156048055) Mixed hyperlipidemia (E78.2) Active confirmed Problem Acquired hypothyroidism (730316511) Acquired hypothyroidism (E03.9) Active confirmed Problem Mixed anxiety and depressive disorder (273810651) Depression with anxiety (F41.8) Active confirmed Vital Signs Heart Rate 86 /min 10/31/2024 Oximetry 97 % 10/31/2024 Blood pressure diastolic 78 mm Hg 10/31/2024 Height 62 in 10/31/2024 Blood pressure systolic 122 mm Hg 10/31/2024 Weight 148 lbs 10/31/2024 BMI 27.07 kg/m2 10/31/2024 Encounters Encounter Location Date Provider Diagnosis [facility] [address] [place] [id number] 10/31/2024 LATONIA DOWLIGN Mixed hyperlipidemia E78.2 ; Acquired hypothyroidism E03.9 ; Depression with anxiety F41.8 and Family history of breast cancer Z80.[address] [facility] [address] [facility] [address] [place] [address] 10/31/2024 LATONIA DOWLING [facility] [address] [facility] [address] [place] [address] 11/01/2024 LATONIA DOWLING Family history of br east cancer Z80.3 [facility] [address] [facility] [address] [place] [address] 11/13/2024 LATONIA DOWLING [facility] [address] [facility] [address] [place] [address] 11/25/2024 LATONIA DOWLING Assessments Encounter Date Diagnosis (ICD Code) Assessment Notes Treatment Notes Treatment Clinical Notes Section Notes 10/31/2024 Mixed hyperlipidemia (ICD-10 - E78.2) Trish is a 59-year-old female who presents to the office today for new patient evaluation. Patient is welcomed to the practice. They are coming from [facility]. Last complete physical exam with labs [...] Dictation was accomplished with the use of [employer] voice recognition software, which is prone to [...] to the practice. They are coming from [facility]. Last complete physical exam with labs [...] Dictation was accomplished with the use of [employer] voice recognition software, which is prone to [...] to the practice. They are coming from [facility]. Last complete physical exam with labs [...] Dictation was accomplished with the use of [employer] voice recognition software, which is prone to [...] to the practice. They are coming from [facility]. Last complete physical exam with labs [...] Dictation was accomplished with the use of [employer] voice recognition software, which is prone to [...] Insured Coverage Start Date Coverage End Date [facility] [address] [place] [address] [id number] Trish Kan Self - patient is the insured 4 Medical (General) History Medical History History ICD Code thyroid disease anxiety depression hearing loss
--- OUTSIDE RECORDS SUMMARY | 2025-09-22 09:25 | XMS_ITS | Encounter Summary ---
Author Organization [facility] Prior to 07/26/2024 Address [address] [place] [address] Care Team Providers Care Reaming Machine Operator Name Role Phone Concepcion Fall MD Primary Care Provider [phone] Reason for Visit * Reason Comments E-prescribe Rx Request Encounter Details Date Type Department Care Team Description 10/12/2018 Refill Adult Medicine [facility] [address] [place] [address] Concepcion Fall MD [address] [place] [address] E-prescribe Rx Request Social History Tobacco Use [...] is: Payor: [employer] / Plan: [employer] $20 DAE 1500 / Product Type: HMO [id number]-[id number] documented in this encounter Plan of Treatment Not on file documented as of this encounter Visit Diagnoses Not on filedocumented in this encounter Care Teams Reaming Machine Operator Relationship Specialty Start Date End Date Concepcion Fall MD [address] [place] [address] [phone] PCP - General 04/13/10 documented as of this encounter
--- OUTSIDE RECORDS SUMMARY | 2025-09-22 09:25 | XMS_ITS | Encounter Summary ---
Author Organization [facility] Prior to 07/26/2024 Address [address] [place] [address] Care Team Providers Care Bottoming Machine Operator Name Role Phone Concepcion Fall MD Primary Care Provider [phone] Encounter Details Date Type Department Care Team Description 07/15/2019 Refinery Operator Visbreaking Report Medical Records [address] [place] [address] Abstract, Provider Social History Tobacco Use Types [...] on filedocumented in this encounter Care Teams Bottoming Machine Operator Relationship Specialty Start Date End Date Concepcion Fall MD [address] [place] [address] PCP - General 04/13/10 documented as of this encounter
--- OUTSIDE RECORDS SUMMARY | 2025-09-22 09:25 | XMS_ITS | Encounter Summary ---
Author Organization [facility] Prior to 07/26/2024 Address [address] [place] [address] Care Team Providers Care Card Placer Name Role Phone Concepcion Fall MD Primary Care Provider [phone] Encounter Details Date Type Department Care Team Description 01/08/2016 [facility] Medical Records [address] [place] [address] Aj Wilkes MD Social History Tobacco Use [...] on filedocumented in this encounter Care Teams Card Placer Relationship Specialty Start Date End Date Concepcion Fall MD [address] [place] [address] PCP - General 04/13/10 documented as of this encounter
--- OUTSIDE RECORDS SUMMARY | 2025-09-22 09:25 | XMS_ITS | Encounter Summary ---
Author Organization [facility] Prior to 07/26/2024 Address [address] [place] [address] Care Team Providers Care Sexologist Name Role Phone Concepcion Fall MD Primary Care Provider [phone] Encounter Details Date Type Department Care Team Description 08/28/2015 Release of Information Medical Records [address] [place] [address] Abstract, Provider Social History Tobacco Use Types [...] on filedocumented in this encounter Care Teams Sexologist Relationship Specialty Start Date End Date Concepcion Fall MD [address] [place] [phone] PCP - General 04/13/10 documented as of this encounter
--- OUTSIDE RECORDS SUMMARY | 2025-09-22 09:25 | XMS_ITS | Encounter Summary ---
Author Organization [facility] Prior to 07/26/2024 Address [address] [facility] [place] [address] Care Team Providers Care Knapsack Sprayer Name Role Phone Concepcion Fall MD Primary Care Provider [phone] Encounter Details Date Type Department Care Team Description 08/07/2019 Waterworks Operator Report Medical Records [address] [place] [address] Armani Diego Social History Tobacco Use Types [...] on filedocumented in this encounter Care Teams Knapsack Sprayer Relationship Specialty Start Date End Date Concepcion Fall MD [address] [place] [address] PCP - General 04/13/10 documented as of this encounter
--- OUTSIDE RECORDS SUMMARY | 2025-09-22 09:25 | XMS_ITS | Clinical Summary ---
Author Organization [facility] Prior to 02/22/25 Address [address] [place] [address] Care Team Providers Care Safety Attendant Name Role Phone Concepcion Fall MD Primary Care Provider [phone] Allergies No known active allergies Medications Medication [...] age to complete this topic Care Teams Safety Attendant Relationship Specialty Start Date End Date Concepcion Fall MD PCP - General Internal Medicine 08/26/19
[2025-09-22 09:29] VITALS: BP 136/75; PULSE 78; BMI 29.6
--- NOTE | 2025-09-22 09:29 | MHC.OFFVIS ---
Vital Signs 09/22/25 09:29 Height 5 ft 2 in Weight 162 lb BMI 29.6 BP 136/75 Blood Pressure Location Rt brachial Position Sitting Pulse 78 Intake Visit Reasons: High risk breast CA Intake Note: Patient referred by Dr. Hernandez for high risk breast cancer. Father and sisters w/ hx of breast CA. Pt c/o: no concerns. Denies lumps, bumps, tenderness, nipple discharge. Hx of genetic testing at [facility] about 10yrs ago. MRI:11/23/24 mm:09/30/24 Interactive Media Marketing Director Required: No Accompanied by: Self / Same As Patient Allergies No Known Allergies Allergy (Verified 09/22/25 09:37) Medication List - Last Reconciled 09/22/25 by Emmanuel Leggett MD atorvastatin 40 mg PO DAILY bisacodyl 20 mg (4 x 5 mg) PO ONCE cetirizine (Zyrtec) 10 mg PO DAILY cholecalciferol (vitamin D3) 25 mcg PO DAILY citalopram 10 mg PO DAILY collagen, hydrolysate (bovine) grams PO creatine monohydrate mg PO estradiol 1 patch transdermal QWEEK fluticasone propionate 50 mcg/actuation (Flonase Allergy Relief) 2 sprays intranasal BID levothyroxine 75 mcg PO DAILY magnesium glycinate 200 mg PO DAILY minoxidil 2.5 mg PO DAILY polyethylene glycol 3350 (Miralax) 238 grams PO ONCE progesterone micronized 100 mg PO BEDTIME thiamine HCl (vitamin B1) 100 mg PO DAILY HPI Comments Details: 60-year-old female patient determined to be at high risk for breast cancer due to family history. She reports her father developing breast cancer at the age of 55 and subsequently passing away from the disease at the age of 58. Her older sister was also diagnosed with breast cancer at the age of 72; she is currently 75 years old. The patient does report a previous right breast biopsy needle core which was benign. She she denies previous breast surgery. She denies any current breast symptoms including pain, lump, nipple discharge or enlarged lymph nodes. Menarche was age 12. She is 3 para 2 in her 1st child was born when she was 29 years old. Menopause was at 55. She has been on hormone replacement for the past year. Her most recent mammogram dated 09/30/2024 revealed no mammographic evidence of malignancy (BI-RADS 2). Her breast density score was b. she denies Ashkenazi [employer]regation heritage. Breast MRI performed on 11/23/2024 revealed no MR specific evidence of malignancy (BI-RADS 1 bilateral). Both MRI and mammogram were performed at [facility]. Ruth remaining lifetime risk of breast cancer calculated at 23.3%. She previously underwent genetic testing for BRCA mutations greater than 10 years ago. [facility] Medical History Constipation Colon cancer screening Acute otitis media with effusion of both ears Hypothyroidism Tear of meniscus of right knee Anxiety Depression CVA (cerebral vascular accident) Surgical History Hx of breast biopsy History of endometrial ablation Family History Father Breast cancer Diabetes Stroke Mother Glaucoma Dementia Atrial fibrillation Son No problems noted. Daughter No problems noted. 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 Right breast: No skin change, no nipple retraction, no nipple discharge, no palpable mass, no enlarged lymph nodes Resp Effort & Inspection: normal respiratory effort, no audible wheezes, no cough and no respiratory distress Cardio Jugular venous distension: no JVD GI Inspection: Yes normal to inspection Skin Other: Warm, dry, no rash Neuro General: patient oriented x3 Extrem General: Yes no clubbing, cyanosis or edema Assessment & Plan Assessment & Plan (1) At high risk for breast cancer: Code(s): Z91.89 - Other specified personal risk factors, not elsewhere classified Category: Medical (2) Family history of breast cancer: Code(s): Z80.3 - Family history of malignant neoplasm of breast Category: Medical Plan 60-year-old female patient determined to be at high risk for breast cancer due to family history including her father and sister. Her Tyrer-Cuzick remaining lifetime risk of breast cancer was approximately 23.3%. She was previously tested for BRCA mutation and was negative. Examination today revealed no suspicious findings in either breast. Her most recent mammogram of 09/30/2024 revealed no suspicious changes (BI-RADS 2). Breast MRI of 11/23/2024 also revealed no MR specific evidence of malignancy (BI-RADS 1 bilaterally). Recommended continuing with the annual mammogram and MRI alternating every 6 months. An order has been placed for her mammogram for September 2025, followed by breast MRI in February 2026. We discussed genetic testing as the panel now who has many other genes which could put her at risk for breast cancer as well. She wishes to proceed with the genetic testing today and will return approximately 6 weeks to review the results. I also recommended twice yearly breast examination. She expressed understanding and agrees with the plan. Orders: Orders MM screening mammo BI 10/01/25 Z80.3 - Family history of malignant neoplasm of breast, Z91.89 - Other specified personal risk factors, not elsewhere classified Coding Level of Care Code New Pt Level 4 (40868) Diagnoses At high risk for breast cancer Z91.89 Family history of breast cancer Z80.3
== END 2025-09-22 10:26 | disposition home or self-care (01) ==
LOC: HO.HGS 09:10
PROVIDERS: Visit Provider Surgery
DX: Z91.89 Other specified personal risk factors, not elsewhere classified (principal); Z80.3 Family history of malignant neoplasm of breast
CPT/HCPCS: 99204